=== PATIENT | male | born 1995 | race Caucasian/White ===

== ENCOUNTER 2018-04-28 02:41 | Inpatient (IN) | payer BC ==
[~2018-04-28] VITALS: Ht 185.4 cm; Wt 87.0 kg
[2018-04-28] MEDS ORDERED: LORAZEPAM 2 MG/ML 1 ML VIAL IV STA ×2 (03:14→04:05)
[2018-04-28] MEDS ORDERED: SODIUM CHLORIDE 0.9% 1000ML 1,000 ML IV STA (03:14)
[2018-04-28] MEDS ORDERED: CLONIDINE HCL 0.3 MG/24 HR TRANSDERM SYS TD STA (03:14)
[2018-04-28] MEDS ORDERED: MULTI-VITAMIN INFUSION INJ 10 ML, THIAMINE HCL INJ 100 MG, FoLIC ACID INJ 1 MG in SODIU... IV ONE (03:15)
--- NOTE | 2018-04-28 03:22 | EMERGENCY ROOM VISIT NOTE ---
History Report prepared by Eliza: Jett Ramos Under the Supervision of: Dr. Miky Diaz M.D. First contact with patient: 02:52 Chief Complaint: DETOX REQUEST Nursing Triage Summary: Pt presents to triage stating he quit drinking etoh and taking Xanax and Prazosin. Stated quit everything Wed at 0900. "I wasn't abusing the medication. I was taking them as prescribed with alcohol." Pt reports feeling n/v/d, difficulty breathing, shaking, cold sweats, unable to sleep. Unable to keep food/water down. Sx began yesterday morning. History of Present Illness The patient is a 22 year old male who presents to the Emergency Room requesting assistance with detoxification. The patient states he used to drink three handles of vodka a week. He reports he has done this for the past three weeks. The patient notes he also was taking prescription Xanax in the morning as well as drinking. He states he takes 1mg of Xanax XR in the morning, and he has been taking an additional 0.5mg as well. The patient reports he also takes Prazosin 4mg at night to sleep. He notes he wanted to detox from his alcohol and Xanax, so he flushed the rest of his Xanax down the drain Tuesday morning. The patient states since then, he has been experiencing constant shakiness, diaphoresis, vomiting, diarrhea, and the sensation that his throat is choking him. He reports he does not keep in contact with his parents. The patient denies abdominal pain. Source of History: patient Onset: two days ago Quality: other (shakiness) Timing: constant Modifying Factors (Worsening): other (not taking medication and drinking) Associated Symptoms: + diaphoresis, + vomiting, + diarrhea, No abdominal pain Note: Associated symptoms: sensation that his throat is choking him Review of Systems See HPI for pertinent positives & negatives. A total of 10 systems reviewed and were otherwise negative. Past Medical & Surgical Medical Problems: (1) Alcohol withdrawal (2) Anxiety Family History Cancer Social History Smoking Status: Never Smoker Marital Status: in relationship Housing Status: lives with significant other Current/Historical Medications Scheduled Alprazolam (Xanax Xr), 1 MG PO QAM Gabapentin (Gabapentin), 0 OR DIRECTED Prazosin Hcl (Prazosin), 4 MG PO HS Scheduled PRN Alprazolam (Xanax), 0.5 MG PO TID PRN for Anxiety Allergies Coded Allergies: No Known Allergies (Unverified , 04/28/18) Physical Exam Vital Signs Date Time Temp Pulse Resp B/P (MAP) Pulse Ox O2 Delivery O2 Flow Rate FiO2 04/28/18 04:01 82 04/28/18 03:57 95 Room Air 04/28/18 03:57 96 Room Air 04/28/18 02:45 37.2 112 20 157/89 98 Room Air Physical Exam GENERAL: Awake, alert, well-appearing, in no acute distress HENT: Normocephalic, atraumatic. Oropharynx unremarkable. EYES: Normal conjunctiva. Sclera non-icteric. NECK: Supple. No nuchal rigidity. FROM. No JVD. RESPIRATORY: Clear to auscultation. CARDIAC: Regular rate, normal rhythm. Extremities warm and well perfused. Pulses equal. ABDOMEN: Soft, non-distended. No tenderness to palpation. No rebound or guarding. No masses. RECTAL: Deferred. MUSCULOSKELETAL: Chest examination reveals no tenderness. The back is symmetrical on inspection without obvious abnormality. There is no CVA tenderness to palpation. No joint edema. LOWER EXTREMITIES: Calves are equal size bilaterally and non-tender. No edema. No discoloration. NEURO: Normal sensorium. No sensory or motor deficits noted. Tremulous. SKIN: No rash or jaundice noted. Diaphoretic. Medical Decision & Procedures Laboratory Results 04/28/18 03:10 Red Blood Count 5.17, Mean Corpuscular Volume 93.4, Mean Corpuscular Hemoglobin 34.2, Mean Corpuscular Hemoglobin Concent 36.6, Mean Platelet Volume 9.7, Neutrophils (%) (Auto) 70.3, Lymphocytes (%) (Auto) 14.6, Monocytes (%) (Auto) 14.6, Eosinophils (%) (Auto) 0.5, Basophils (%) (Auto) 0.0, Neutrophils # (Auto ) 2.70, Lymphocytes # (Auto) 0.56, Monocytes # (Auto) 0.56, Eosinophils # (Auto ) 0.02, Basophils # (Auto) 0.00 Test 04/28/18 03:10 04/28/18 05:40 White Blood Count 3.84 K/uL (4.8-10.8) Red Blood Count 5.17 M/uL (4.7-6.1) Hemoglobin 17.7 g/dL (14.0-18.0) Hematocrit 48.3 % (42-52) Mean Corpuscular Volume 93.4 fL (80-100) Mean Corpuscular Hemoglobin 34.2 pg (25-34) Mean Corpuscular Hemoglobin Concent 36.6 g/dl (32-36) Platelet Count 137 K/uL (130-400) Mean Platelet Volume 9.7 fL (7.4-10.4) Neutrophils (%) (Auto) 70.3 % Lymphocytes (%) (Auto) 14.6 % Monocytes (%) (Auto) 14.6 % Eosinophils (%) (Auto) 0.5 % Basophils (%) (Auto) 0.0 % Neutrophils # (Auto) 2.70 K/uL (1.4-6.5) Lymphocytes # (Auto) 0.56 K/uL (1.2-3.4) Monocytes # (Auto) 0.56 K/uL (0.11-0.59) Eosinophils # (Auto) 0.02 K/uL (0-0.5) Basophils # (Auto) 0.00 K/uL (0-0.2) RDW Standard Deviation 40.0 fL (36.4-46.3) RDW Coefficient of Variation 11.9 % (11.5-14.5) Immature Granulocyte % (Auto) 0.0 % Immature Granulocyte # (Auto) 0.00 K/uL (0.00-0.02) Prothrombin Time 10.7 SECONDS (9.0-12.0) Prothromb Time International Ratio 1.0 (0.9-1.1) Activated Partial Thromboplast Time 26.4 SECONDS (21.0-31.0) Partial Thromboplastin Ratio 1.0 Total Creatine Kinase 410 U/L (39-308) Lipase 195 U/L (73-393) Salicylates Level < 1.7 mg/dl (2.8-20) Acetaminophen Level < 2 ug/ml (10-30) Ethyl Alcohol mg/dL < 3.0 mg/dl (0-3) Urine Color YELLOW Urine Appearance CLEAR (CLEAR) Urine pH 7.5 (4.5-7.5) Urine Specific [place] 1.004 (1.000-1.030) Urine Protein NEG (NEG) Urine Glucose (UA) NEG (NEG) Urine Ketones TRACE (NEG) Urine Occult Blood NEG (NEG) Urine Nitrite NEG (NEG) Urine Bilirubin NEG (NEG) Urine Urobilinogen NEG (NEG) Urine Leukocyte Esterase TRACE (NEG) Urine WBC (Auto) 1-5 /hpf (0-5) Urine RBC (Auto) 0-4 /hpf (0-4) Urine Hyaline Casts (Auto) 0 /lpf (0-5) Urine Epithelial Cells (Auto) 0-5 /lpf (0-5) Urine Bacteria (Auto) NEG (NEG) Urine Opiates Screen NEG (NEG) Urine Methadone, Qualitative NEG (NEG) Urine Barbiturates NEG (NEG) Urine Phencyclidine (PCP) Level NEG (NEG) Ur Amphetamine/Methamphetamine NEG (NEG) MDMA (Ecstasy) Screen NEG (NEG) Urine Benzodiazepines Screen POS (NEG) Urine Cocaine Metabolite NEG (NEG) Urine Marijuana (THC) NEG (NEG) Labs reviewed by ED physician. Medications Administered Medications (Trade) Dose Ordered Sig/Geo Route Start Time Stop Time Status Last Admin Dose Admin Clonidine HCl ([id number] 0.3mg/24hr Patch) 1 patch NOW STAT TD 04/28/18 03:14 04/28/18 03:17 DC 04/28/18 03:14 1 PATCH Sodium Chloride 1,000 ml @ 999 mls/hr Q1H1M STAT IV 04/28/18 03:14 04/28/18 04:14 DC 04/28/18 03:14 999 MLS/HR Multivitamins 10 ml/Thiamine HCl 100 mg/Folic Acid 1 mg/Sodium Chloride 1,011.2 ml @ 500 mls/ hr Q2H2M ONCE IV 04/28/18 03:15 04/28/18 05:16 DC 04/28/18 03:15 500 MLS/HR Lorazepam (Ativan Inj) 1 mg NOW STAT IV 04/28/18 03:14 04/28/18 03:17 DC 04/28/18 03:14 1 MG Ondansetron HCl (Zofran Inj) 4 mg NOW STAT IV 04/28/18 03:36 04/28/18 03:37 DC 04/28/18 03:47 4 MG Potassium Chloride (Klor-Con M10) 40 meq NOW STAT PO 04/28/18 03:56 04/28/18 03:57 DC 04/28/18 03:56 40 MEQ Miscellaneous Medication (Gi Cocktail) 24 ml NOW STAT PO 04/28/18 04:05 04/28/18 04:07 DC 04/28/18 04:05 24 ML Famotidine (Pepcid Tab) 20 mg NOW STAT PO 04/28/18 04:05 04/28/18 04:07 DC 04/28/18 04:05 20 MG Lidocaine HCl (Viscous Lidocaine 2% Soln) 20 ml STK-MED ONCE .ROUTE 04/28/18 04:17 04/28/18 04:18 DC 04/28/18 04:40 20 ML Al Hydroxide/Mg Hydroxide (Maalox Susp) 30 ml STK-MED ONCE .ROUTE 04/28/18 04:18 04/28/18 04:19 DC 04/28/18 04:40 30 ML ECG Per My Interpretation Indication: toxicologic Rate (beats per minute): 78 Rhythm: normal sinus Findings: other (No ST elevation or depression.) ED Course 0256: Past medical records reviewed. The patient was evaluated in room A08. A complete history and physical examination was performed. 0314: Ordered Ativan 1mg IV, Sodium Chloride 1000 ml @ 999 mls/hr, Clonidine HCl 1patch TD 0315: Ordered Multivitamins 10ml/Thiamine HCl 100 mg/Folic Acid 1mg/Sodium Chloride 1011.2 ml @ 500 mls/hr IV 0336: Ordered Zofran 4mg IV 0356: Ordered Potassium chloride 40 meq PO 0405: Ordered Ativan 1mg IV, Carafate 1gm PO, Pepcid 20mg, GI cocktail 24ml PO 0409: I discussed the patient's case with Dr. Ricci [facility]. The patient will be evaluated for further management and care. 0417: Ordered Lidocaine HCl 20ml .ROUTE 0418: Ordered Maalox 30ml .ROUTE 0419: I reevaluated the patient. He states he does not wish to be admitted and would like to be discharged. 0430: Ordered Lorazepam 1 homepack PO 0538: After further discussion, the patient has decided he wants to have a hospitalist evaluate him. 0542: I discussed the patient's case with Dr. Gordo Ricci. The patient will be evaluated for further management and care. Medical Decision Differential diagnosis: Etiologies such as toxicologic, infection, hypoglycemia, electrolyte abnormalities, cardiac sources, intracerebral event, neurologic, substance withdraw, as well as others were entertained. This is a 22-year-old male who presents the emergency department diaphoretic tachycardic and hypertensive during a period of high volume and high acuity during single provider coverage. The patient drinks a large amount of alcohol and suddenly stopped along with his benzodiazepine. I am concerned that the patient has put himself into acute withdrawal. He was given a Catapres patch here in the emergency department as well as 1 mg of Ativan 2. The patient was also given a banana bag as well as a normal saline bolus. I strongly recommended to the patient that he be admitted based on his withdrawal symptoms. The patient initially refused however after started feeling sick again agreed to be admitted. I did discuss the case with the hospitalist service who agreed to admit the patient. Patient was in agreement with the treatment plan. Medication Reconcilliation Current Medication List: was personally reviewed by me Blood Pressure Screening Patient's blood pressure: Elevated blood pressure Blood pressure disposition: Elevated BP felt to be situational Consults Time Called: 0535 Consulting Physician[facility] Returned Call: 0560 I discussed the patient's case with Gordo Sánchez. The patient will be evaluated for further management and care. Impression Primary Impression: Alcohol withdrawal Critical Care I have personally spent greater than 30 minutes of critical care time in the direct management of this patient. This includes bedside care, interpretation of diagnostic studies, and testing, discussion with consultants, patient, and family members, and other required patient management activities. This 30 minutes is in excess of all separately billable procedures. Scribe Attestation The scribe's documentation has been prepared under my direction and personally reviewed by me in its entirety. I confirm that the note above accurately reflects all work, treatment, procedures, and medical decision making performed by me. Departure Information Dispostion Being Evaluated By Hospitalist Prescriptions Gabapentin (Gabapentin) 600 Mg Tab 0 OR DIRECTED for 8 Days, #13 CAP take 600 mg q8h x 2 days then 600 mg q12 h x 2 days then 600 mg daily x 2 days then 300 mg daily x 2 days Prov: Carlos Berg M.D. 04/29/18 Referrals Rachid Starks M.D. (PCP) Patient Instructions [facility] Problem Qualifiers Primary Impression: Alcohol withdrawal Complication of substance-induced condition: with unspecified complication Qualified Codes: F10.239 - Alcohol dependence with withdrawal, unspecified
[2018-04-28 03:24] LABS: EOS % 0.5 %; EOS ABS # 0.02 K/uL (0-0.5); HEMATOCRIT 48.3 % (42-52); HEMOGLOBIN 17.7 g/dL (14.0-18.0); LYMPH % 14.6 %; LYMPH ABS # 0.56 K/uL (1.2-3.4); MEAN CELL VOLUME 93.4 fL (80-100); MEAN CORPUSCULAR HEMOGLOBIN 34.2 pg (25-34); MEAN CORPUSCULAR HGB CONC 36.6 g/dl (32-36); MEAN PLATELET VOLUME 9.7 fL (7.4-10.4); MONO % 14.6 %; MONO ABS # 0.56 K/uL (0.11-0.59); NEUT % 70.3 %; PLATELET COUNT 137 K/uL (130-400); RED CELL DISTRIBUTION WIDTH CV 11.9 % (11.5-14.5); WHITE BLOOD COUNT 3.84 K/uL (4.8-10.8)
[2018-04-28] MEDS ORDERED: ONDANSETRON INJ 2 MG/ML 2 ML VIAL IV STA (03:36)
[2018-04-28 03:37] LABS: PTT PATIENT 26.4 SECONDS (21.0-31.0)
[2018-04-28 03:49] LABS: ALBUMIN 4.9 gm/dl (3.4-5.0); CALCIUM 9.2 mg/dl (8.5-10.1); CREATININE 1.01 mg/dl (0.60-1.40); POTASSIUM 3.1 mmol/L (3.5-5.1); TOTAL PROTEIN 8.6 gm/dl (6.4-8.2)
[2018-04-28] MEDS ORDERED: POTASSIUM CHLORIDE 10 MEQ TABCR PO STA (03:56)
[2018-04-28] MEDS ORDERED: FAMOTIDINE 20 MG TAB PO STA (04:05)
[2018-04-28] MEDS ORDERED: SUCRALFATE 1 GM TAB PO STA (04:05)
[2018-04-28] MEDS ORDERED: GI COCKTAIL PO STA (04:05)
[2018-04-28] MEDS ORDERED: LIDOCAINE HCL 2% VISC SOLN 20 ML UDC ONE (04:17)
[2018-04-28] MEDS ORDERED: ALUMINUM/MAGNESIUM SUSP 30 ML UDC ONE (04:18)
[2018-04-28] MEDS ORDERED: ATIVAN 1MG HOMEPACK PO ONE (04:30)
[2018-04-28] MEDS ORDERED: ALPR1TAB PO (04:40)
[2018-04-28] MEDS ORDERED: ALPR-411 PO (04:41)
[2018-04-28] MEDS ORDERED: PRAZ2CAP3 PO (04:43)
[2018-04-28] MEDS ORDERED: CLONIDINE HCL 0.1 MG TAB PO PRN (06:15)
[2018-04-28] MEDS ORDERED: ONDANSETRON INJ 2 MG/ML 2 ML VIAL IV PRN (06:15)
[2018-04-28] MEDS ORDERED: NITROGLYCERIN 0.4 MG SL PER TAB CHARGE SL PRN (06:15)
[2018-04-28] MEDS ORDERED: LOPERAMIDE HCL 2 MG CAP PO PRN (06:15)
[2018-04-28] MEDS ORDERED: ACETAMINOPHEN 325 MG TAB PO PRN (06:15)
[2018-04-28] MEDS ORDERED: ALUMINUM/MAGNESIUM/SIMETH (MAALOX MAX) 30 ML UDC PO PRN (06:15)
[2018-04-28] MEDS ORDERED: GABAPENTIN 600 MG TAB PO SCH (06:15)
[2018-04-28] MEDS ORDERED: POLYETHYLENE (MIRALAX) 17 GM PACK PO PRN (06:15)
[2018-04-28] MEDS: CHECK CLONIDINE PATCH PLACEMENT SCH ×3 (07:53→23:16)
[2018-04-28] MEDS: LORAZEPAM 1 MG TAB PO PRN ×2 (08:24→16:17)
[2018-04-28] MEDS: ALPRAZOLAM 0.5 MG TAB PO PRN ×2 (08:24→16:17)
[2018-04-28 08:29] VITALS: BP 136/93; PULSE 108; TEMP 36.8; O2SAT 100; Ht 185.4 cm; Wt 87.0 kg
[2018-04-28] MEDS ORDERED: GABAPENTIN 1200MG LOADING DOSE PO ONE (08:30)
--- NOTE | 2018-04-28 08:35 | HISTORY & PHYSICAL EXAMINATION ---
DATE OF ADMISSION: 04/28/2018 CHIEF COMPLAINT: Alcoholism. HISTORY OF PRESENT ILLNESS: This is a 22-year-old male with past medical history significant for PTSD, anxiety, alcoholism, presents with a request for alcohol detox. Patient says since last Tuesday he stopped drinking and he was doing it by himself, but he was having problems with shakiness palpitations, nauseous, sweating and diarrhea, so he came to the ER. In the ER, he was given banana bag and IV Ativan. He was doing a little better and wanted to go home, but agreed to stay. Denies any headaches. No blurred vision. No earache, no runny nose, no sore throat. Has some occasional cough, was having sore throat since he stopped drinking and some difficulty swallowing since he stopped drinking. No shortness of breath, no chest pain. Mild abdominal discomfort. Normal bladder movements. Currently, resting comfortable and hemodynamically stable. ALLERGIES: No known drug allergies. PAST MEDICAL HISTORY: As mentioned above. PAST SURGICAL HISTORY: Surgery for testicular torsion, wisdom tooth surgery. MEDICATIONS: The patient is on Xanax 1 mg p.o. a.m., Xanax 0.5 mg p.o. t.i.d. p.r.n., prazosin 4 mg p.o. at bedtime. FAMILY HISTORY: Patient denies any significant family history. SOCIAL HISTORY: Drinking alcohol since age of 15. Drinks 2 bottles of vodka in a week. Denies tobacco abuse, denies drug abuse. REVIEW OF SYMPTOMS: As per HPI. Rest of review of symptoms is negative. PHYSICAL EXAMINATION: GENERAL: Patient is of moderate build, not in distress. VITAL SIGNS: Temperature 37.2, pulse when he came in was 112, currently 82, respiratory rate 20, blood pressure 157/89, oxygen 96% room air. HEENT: No pallor, no icterus. Pupils equal, round, and reactive to light. NECK: No JVD, no neck masses, no carotid bruits. CARDIOVASCULAR: S1, S2 heard, regular rate and rhythm. No murmurs. RESPIRATORY SYSTEM: Normal AP diameter. No accessory muscle use. No wheezing, no crackles. ABDOMEN: Soft, bowel sounds present. Nontender. No distention. CENTRAL NERVOUS SYSTEM: Cranial nerves II-XII grossly intact. Nonfocal. EXTREMITIES: No edema, no erythema. LABS: WBC 3.8, hemoglobin 17.7, hematocrit 48.3, platelets 137. Sodium 135, potassium 3.1, chloride 96, bicarb 25, BUN 10, creatinine 1, serum glucose 99, calcium 9.2, total bilirubin 1.9, direct bilirubin 0.5, AST 106, ALT 109, alkaline phosphatase 81, total creatinine kinase is 14, albumin 4.9, lipase 195. PT 10.7, INR 1, APTT 26.4. Salicylate level less than 17, acetaminophen level less than 2, alcohol level less than 3. ASSESSMENT AND PLAN: This is a 22-year-old male who presents with alcoholism and requests for alcohol detoxification. 1. Alcoholism, alcohol withdrawal. Stopped drinking since Tuesday because he wanted to get rid of the habit and request for detoxification. Will place him on banana bag, gabapentin alcohol withdrawal protocol, IV Ativan p.r.n. and monitor in tele floor. Place him on clonidine p.r.n. and Imodium p.r.n. Psych consult. 2. History of posttraumatic stress disorder and anxiety. Continue his home medications. 3. Hypokalemia, we will replace. 4. Elevated LFTs, most likely from alcoholism. We will repeat the labs and also check a liver ultrasound. 5. Deep vein thrombosis prophylaxis, sequential compression device. DISPOSITION: Admit to tele floor. Expect to discharge him home and follow up with family doctor. Level 1 full code. MTDD
[2018-04-28] MEDS ORDERED: LORAZEPAM 2 MG/ML 1 ML VIAL IV PRN (10:00)
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
[2018-04-28 12:00] VITALS: BP 133/95; PULSE 61; TEMP 37; O2SAT 98
[2018-04-28] MEDS ORDERED: PNEUMOCOCCAL POLYSACCHARIDES 25 MCG/0.5 ML VIAL/SYR IM. ONE (12:45)
[2018-04-28] MEDS ORDERED: PNEUMOCOCCAL ADMINISTRATION CHARGE ONE (12:45)
[2018-04-28] MEDS: MULTI-VITAMIN INFUSION INJ 10 ML, THIAMINE HCL INJ 100 MG, FoLIC ACID INJ 1 MG in SODIU... IV SCH (12:54)
[2018-04-28 13:22] LABS: POTASSIUM 3.8 mmol/L (3.5-5.1)
--- NOTE | 2018-04-28 15:25 | DIAGNOSTIC IMAGING REPORT ---
BILIARY ULTRASOUND CLINICAL HISTORY: ELEVATED LFT COMPARISON STUDY: No previous studies for comparison. FINDINGS: The liver is of increased echogenicity, nonspecific finding most often seen in hepatic steatosis. There is suspected focal fatty sparing adjacent to the gallbladder. There are multiple gallstones present. There is a small fundal gallbladder polyp versus focal adenomyomatosis. The gallbladder wall measures 4 mm. No pancreatic masses are visualized. There is no ductal dilatation. The common bile duct measures 5 mm. There is no right-sided hydronephrosis. IMPRESSION: 1. Cholelithiasis. 2. Small fundal gallbladder polyp versus focal adenomyomatosis 3. No ductal dilatation 4. Increased hepatic echogenicity, most likely secondary to hepatic steatosis Electronically signed by: J Luis Mcgovern M.D. 04/28/2018 3:24 PM Dictated Date/Time: 04/28/2018 3:22 PM
[2018-04-28 16:06] VITALS: BP 150/102; PULSE 81; TEMP 36.7; O2SAT 98
[2018-04-28] MEDS: GABAPENTIN 600MG Q6H DOSE PO SCH ×2 (16:17→21:20)
--- NOTE | 2018-04-28 17:55 | Progress Note ---
Progress Note Date of Service Apr 28, 2018. Progress Note Subjective: Patient seen and examined at bedside and denies tremors. Denies chest pain or shortness of breath or abdominal pain Physical exam GENERAL: not in distress. HEENT: No pallor, no icterus. Pupils equal, round, and reactive to light. NECK: No JVD, no neck masses, no carotid bruits. CARDIOVASCULAR: S1, S2 heard, regular rate and rhythm. No murmurs. RESPIRATORY SYSTEM: Normal AP diameter. No accessory muscle use. No wheezing , no crackles. ABDOMEN: Soft, bowel sounds present. Nontender. No distention. CENTRAL NERVOUS SYSTEM: Cranial nerves II-XII grossly intact. Nonfocal. EXTREMITIES: No edema, no erythema. ASSESSMENT AND PLAN: This is a 22-year-old male who presents with alcoholism and here for alcohol detoxification -currently no symptoms of withdrawal symptoms -continue gabapentin alcohol withdrawal protocol with prn Ativan or clonidine if needed -Continue banana bag History of posttraumatic stress disorder and anxiety -reports Xanax use at home ofr anxiety -uses prazosin for PTSD -psychiatry consult asked to evaluate any changes to current medications or to help patient with transitioning for outpatient behavioral health from hospital stay Hypokalemia resolved after potassium supplementations Transaminitis and on RUQ ultrasound found to have 1. Cholelithiasis. 2. Small fundal gallbladder polyp versus focal adenomyomatosis 3. No ductal dilatation 4. Increased hepatic echogenicity, most likely secondary to hepatic steatosis -no abdominal symptoms -patient encouraged to avoid alcohol use in the future to prevent worsening hepatic steatosis Deep vein thrombosis ppx: sequential compression device.
[2018-04-28 19:23] VITALS: BP 149/85; PULSE 77; TEMP 36.8; O2SAT 100
[2018-04-28] MEDS ORDERED: PRAZOSIN HCL 1 MG CAP PO SCH (21:00)
[2018-04-28 22:59] VITALS: BP 126/66; PULSE 71; TEMP 36.9; O2SAT 99
[2018-04-29 02:56] VITALS: BP 126/76; PULSE 68; TEMP 36.7; O2SAT 99
[2018-04-29] MEDS: GABAPENTIN 600MG Q8H DOSE PO SCH ×2 (05:19→14:15)
[2018-04-29 06:44] LABS: ALBUMIN 3.8 gm/dl (3.4-5.0); CALCIUM 8.4 mg/dl (8.5-10.1); CREATININE 0.83 mg/dl (0.60-1.40); POTASSIUM 3.5 mmol/L (3.5-5.1); TOTAL PROTEIN 6.7 gm/dl (6.4-8.2)
[2018-04-29 07:25] VITALS: BP 128/76; PULSE 78; TEMP 36.8; O2SAT 99
[2018-04-29] MEDS: LORAZEPAM 1 MG TAB PO PRN ×2 (08:06→14:14)
[2018-04-29] MEDS: CHECK CLONIDINE PATCH PLACEMENT SCH (08:07)
[2018-04-29] MEDS: MULTI-VITAMIN INFUSION INJ 10 ML, THIAMINE HCL INJ 100 MG, FoLIC ACID INJ 1 MG in SODIU... IV SCH (08:46)
--- NOTE | 2018-04-29 09:21 | Psych Management Progress Note ---
Psychiatry Miscellaneous Date of Service: Apr 29, 2018. confirmed that patient did indeed inform [facility] that he will not be returning to care. No further rx's to be provided by [facility]. Patient is receiving prn Ativan for withdrawal on top of prn Xanax which he received yesterday. I'd advise d/c of prn Xanax and cover with other withdrawal meds, otherwise taper to 0.25 mg BID prn then d/c. Will defer to primary team as far as preference for breakthrough withdrawal. No further recs at this time as rec would be for inpatient rehab and patient is managing his own f/u.
[2018-04-29 11:40] VITALS: BP 131/89; PULSE 75; TEMP 36.7; O2SAT 100
[2018-04-29 15:15] VITALS: BP 160/87; PULSE 91; TEMP 37.2; O2SAT 97
--- NOTE | 2018-04-29 16:55 | Progress Note ---
Progress Note Date of Service Apr 29, 2018. Progress Note Subjective: Patient has been seen and examined during the day several times. While he has not been having evidence for tongue fasciculations or hand tremors., patient's heart rate has been erratic today. On the cardiac monitoring this AM his heart rate was monitored to be 135 beats per minute for which he attributed to the being startled by medical staff or stressed out. During the day at rest patient' s heart rate has been seen on the monitor to be anywhere between the 80s to 120s. When ambulating, patient's heart rate was in the 130s. Medical doctor has expressed to him concern that he should remain in the hospital for at least 1 more day for further cardiac monitoring and gabapentin protocol. Patient insists that he would like to leave the hospital by 6 PM. Have approached patient and explained with his nurse present that in the context of tachycardia and context of previous alcohol use that patient may be at risk of alcohol withdrawal of delirium tremens and that he should stay further for monitoring and gabapentin withdrawal protocol. Have informed patient that he can sign acknowledge these risks and sign discharge against medical advice form. Patient reports he has been worked up in the past and request that medical staff obtain his medical records from [place]. Physical exam as performed earlier GENERAL: not in distress. HEENT: No pallor, no icterus. Pupils equal, round, and reactive to light. NECK: No JVD, no neck masses CARDIOVASCULAR: at rest the heart rate is regular and no murmurs appreciated RESPIRATORY SYSTEM: clear to auscultation. No accessory muscle use. No wheezing, no crackles. ABDOMEN: Soft, bowel sounds present. Nontender. No distention. CENTRAL NERVOUS SYSTEM: no tremors of hands or tongue EXTREMITIES: No edema, no erythema. ASSESSMENT AND PLAN: This is a 22-year-old male who presents with alcoholism and here for alcohol detoxification -concern that erratic heart rates may be due to evidence of alcohol withdrawal -will obtain medical records from [place] however am concerned that this would not be able to be done in time to meet patient's deadline of 6 PM discharge -concern that patient may need further cardiac monitoring and further therapy with gabapentin alcohol withdrawal protocol History of posttraumatic stress disorder and anxiety -continue prazosin for PTSD -psychiatry consult advised that patient should be off Xanax Hypokalemia resolved after potassium supplementations Transaminitis and on RUQ ultrasound found to have 1. Cholelithiasis. 2. Small fundal gallbladder polyp versus focal adenomyomatosis 3. No ductal dilatation 4. Increased hepatic echogenicity, most likely secondary to hepatic steatosis -no abdominal symptoms -patient encouraged to avoid alcohol use in the future to prevent worsening hepatic steatosis Deep vein thrombosis ppx: sequential compression device.
[2018-04-29 18:00] VITALS: BP 131/89; PULSE 91; TEMP 37.2; O2SAT 97
[2018-04-29] MEDS ORDERED: NRN600 OR ×2 (18:07→18:10)
--- NOTE | 2018-04-29 18:16 | Discharge Instructions ---
Discharge Instructions Date of Service Apr 29, 2018. Admission Reason for Admission: Alcohol Withdrawal Discharge Discharge Diagnosis / Problem: alcohol withdrawal with complication, left against medical advice Discharge Goals Goal(s): Prevent Disease Progression Activity Recommendations Activity Limitations: as noted below . Instructions / Follow-Up Instructions / Follow-Up Subjective: Patient has been seen and examined during the day several times. While he has not been having evidence for tongue fasciculations or hand tremors., patient's heart rate has been erratic today. On the cardiac monitoring this AM his heart rate was monitored to be 135 beats per minute for which he attributed to the being startled by medical staff or stressed out. During the day at rest patient' s heart rate has been seen on the monitor to be anywhere between the 80s to 120s. When ambulating, patient's heart rate was in the 130s. Medical doctor has expressed to him concern that he should remain in the hospital for at least 1 more day for further cardiac monitoring and gabapentin protocol. Patient insists that he would like to leave the hospital by 6 PM. Have approached patient and explained with his nurse present that in the context of tachycardia and context of previous alcohol use that patient may be at risk of alcohol withdrawal of delirium tremens and that he should stay further for monitoring and gabapentin withdrawal protocol. Have informed patient that he can sign acknowledge these risks and sign discharge against medical advice form. Patient reports he has been worked up in the past and request that medical staff obtain his medical records from [place]. Physical exam as performed earlier GENERAL: not in distress. HEENT: No pallor, no icterus. Pupils equal, round, and reactive to light. NECK: No JVD, no neck masses CARDIOVASCULAR: at rest the heart rate is regular and no murmurs appreciated RESPIRATORY SYSTEM: clear to auscultation. No accessory muscle use. No wheezing, no crackles. ABDOMEN: Soft, bowel sounds present. Nontender. No distention. CENTRAL NERVOUS SYSTEM: no tremors of hands or tongue EXTREMITIES: No edema, no erythema. ASSESSMENT AND PLAN: This is a 22-year-old male who presents with alcoholism and here for alcohol detoxification -concern that erratic heart rates may be due to evidence of alcohol withdrawal -will obtain medical records from [place] however am concerned that this would not be able to be done in time to meet patient's deadline of 6 PM discharge -concern that patient may need further cardiac monitoring and further therapy with gabapentin alcohol withdrawal protocol History of posttraumatic stress disorder and anxiety -continue prazosin for PTSD -psychiatry consult advised that patient should be off Xanax Hypokalemia resolved after potassium supplementations Transaminitis and on RUQ ultrasound found to have 1. Cholelithiasis. 2. Small fundal gallbladder polyp versus focal adenomyomatosis 3. No ductal dilatation 4. Increased hepatic echogenicity, most likely secondary to hepatic steatosis -no abdominal symptoms -patient encouraged to avoid alcohol use in the future to prevent worsening hepatic steatosis Deep vein thrombosis ppx: sequential compression device. Addendum: Carlos Berg M.D. on 04/29/18 @ 18:02 Addendum Section While medical staff awaiting records from patient's medical providers from [place], patient took off his cardiac monitoring to leave the hospital He declined to sign the Leave Against medical advice form in which medical doctor verbalized that possible medical consequences involved at risk of alcohol withdrawal, at risk of delirium tremens, tremors hallucinations, fever, seizure, at risk of uncontrolled tachycardia) Patient did accept the paper prescription for alcohol withdrawal which listed gabapentin 600 mg q8 hours x 2 days then 600 mg q12 hours x 2 days then 600 mg daily x 2 days then 300 mg x 2 days in order to minimize his risk of possible medical consequences as above. This was witnessed by patient's nurse. Patient Left against medical advice Current Hospital Diet Patient's current hospital diet: Regular Diet Discharge Diet Recommended Diet: Regular Diet Pending Studies Studies pending at discharge: yes List of pending studies: Left Against medical advice Medical Emergencies . Who to Call and When: Medical Emergencies: If at any time you feel your situation is an emergency, please call 911 immediately. . Non-Emergent Contact Non-Emergency issues call your: Primary Care Provider . . "Provider Documentation" section prepared by Calros Berg. .
--- NOTE | 2018-04-29 18:19 | Discharge Summary ---
Discharge Summary Date of Service Apr 29, 2018. Discharge Summary Admission Date: Apr 28, 2018 at 06:07 Discharge Date: Apr 29, 2018 (LEFT AGAINST MEDICAL ADVICE) Principal Diagnosis: alcohol withdrawal with complication, Left against medical advice Admission Information HPI (per Admitting provider): CHIEF COMPLAINT: Alcoholism. HISTORY OF PRESENT ILLNESS: This is a 22-year-old male with past medical history significant for PTSD, anxiety, alcoholism, presents with a request for alcohol detox. Patient says since last Tuesday he stopped drinking and he was doing it by himself, but he was having problems with shakiness palpitations, nauseous, sweating and diarrhea, so he came to the ER. In the ER, he was given banana bag and IV Ativan. He was doing a little better and wanted to go home, but agreed to stay. Denies any headaches. No blurred vision. No earache, no runny nose, no sore throat. Has some occasional cough, was having sore throat since he stopped drinking and some difficulty swallowing since he stopped drinking. No shortness of breath, no chest pain. Mild abdominal discomfort. Normal bladder movements. Currently, resting comfortable and hemodynamically stable. ALLERGIES: No known drug allergies. PAST MEDICAL HISTORY: As mentioned above. PAST SURGICAL HISTORY: Surgery for testicular torsion, wisdom tooth surgery. MEDICATIONS: The patient is on Xanax 1 mg p.o. a.m., Xanax 0.5 mg p.o. t.i.d. p.r.n., prazosin 4 mg p.o. at bedtime. FAMILY HISTORY: Patient denies any significant family history. SOCIAL HISTORY: Drinking alcohol since age of 15. Drinks 2 bottles of vodka in a week. Denies tobacco abuse, denies drug abuse. REVIEW OF SYMPTOMS: As per HPI. Rest of review of symptoms is negative. Physical Exam (per Admitting): PHYSICAL EXAMINATION: GENERAL: Patient is of moderate build, not in distress. VITAL SIGNS: Temperature 37.2, pulse when he came in was 112, currently 82, respiratory rate 20, blood pressure 157/89, oxygen 96% room air. HEENT: No pallor, no icterus. Pupils equal, round, and reactive to light. NECK: No JVD, no neck masses, no carotid bruits. CARDIOVASCULAR: S1, S2 heard, regular rate and rhythm. No murmurs. RESPIRATORY SYSTEM: Normal AP diameter. No accessory muscle use. No wheezing, no crackles. ABDOMEN: Soft, bowel sounds present. Nontender. No distention. CENTRAL NERVOUS SYSTEM: Cranial nerves II-XII grossly intact. Nonfocal. EXTREMITIES: No edema, no erythema. Hospital Course Subjective: Patient has been seen and examined during the day several times. While he has not been having evidence for tongue fasciculations or hand tremors., patient's heart rate has been erratic today. On the cardiac monitoring this AM his heart rate was monitored to be 135 beats per minute for which he attributed to the being startled by medical staff or stressed out. During the day at rest patient' s heart rate has been seen on the monitor to be anywhere between the 80s to 120s. When ambulating, patient's heart rate was in the 130s. Medical doctor has expressed to him concern that he should remain in the hospital for at least 1 more day for further cardiac monitoring and gabapentin protocol. Patient insists that he would like to leave the hospital by 6 PM. Have approached patient and explained with his nurse present that in the context of tachycardia and context of previous alcohol use that patient may be at risk of alcohol withdrawal of delirium tremens and that he should stay further for monitoring and gabapentin withdrawal protocol. Have informed patient that he can sign acknowledge these risks and sign discharge against medical advice form. Patient reports he has been worked up in the past and request that medical staff obtain his medical records from [place]. Physical exam as performed earlier GENERAL: not in distress. HEENT: No pallor, no icterus. Pupils equal, round, and reactive to light. NECK: No JVD, no neck masses CARDIOVASCULAR: at rest the heart rate is regular and no murmurs appreciated RESPIRATORY SYSTEM: clear to auscultation. No accessory muscle use. No wheezing, no crackles. ABDOMEN: Soft, bowel sounds present. Nontender. No distention. CENTRAL NERVOUS SYSTEM: no tremors of hands or tongue EXTREMITIES: No edema, no erythema. ASSESSMENT AND PLAN: This is a 22-year-old male who presents with alcoholism and here for alcohol detoxification -concern that erratic heart rates may be due to evidence of alcohol withdrawal -will obtain medical records from [place] however am concerned that this would not be able to be done in time to meet patient's deadline of 6 PM discharge -concern that patient may need further cardiac monitoring and further therapy with gabapentin alcohol withdrawal protocol History of posttraumatic stress disorder and anxiety -continue prazosin for PTSD -psychiatry consult advised that patient should be off Xanax Hypokalemia resolved after potassium supplementations Transaminitis and on RUQ ultrasound found to have 1. Cholelithiasis. 2. Small fundal gallbladder polyp versus focal adenomyomatosis 3. No ductal dilatation 4. Increased hepatic echogenicity, most likely secondary to hepatic steatosis -no abdominal symptoms -patient encouraged to avoid alcohol use in the future to prevent worsening hepatic steatosis Deep vein thrombosis ppx: sequential compression device. Addendum: Carlos Berg M.D. on 04/29/18 @ 18:02 Addendum Section While medical staff awaiting records from patient's medical providers from [place], patient took off his cardiac monitoring to leave the hospital He declined to sign the Leave Against medical advice form in which medical doctor verbalized that possible medical consequences involved at risk of alcohol withdrawal, at risk of delirium tremens, tremors hallucinations, fever, seizure, at risk of uncontrolled tachycardia) Patient did accept the paper prescription for alcohol withdrawal which listed gabapentin 600 mg q8 hours x 2 days then 600 mg q12 hours x 2 days then 600 mg daily x 2 days then 300 mg x 2 days in order to minimize his risk of possible medical consequences as above. This was witnessed by patient's nurse. Patient Left against medical advice Total time spent on discharge = This includes examination of the patient, discharge planning, medication reconciliation, and communication with other providers. Discharge Instructions see above
[2018-04-30] MEDS ORDERED: GABAPENTIN 600MG Q12H DOSE PO SCH (10:00)
[2018-05-01] MEDS ORDERED: GABAPENTIN 600MG X1 DOSE PO SCH (22:00)
== END 2018-04-29 18:02 | disposition left against medical advice (07) | DRG 894 ==
LOC: C.EDB 02:42 → C.2T 06:07 → ENRESERV 06:28
PROVIDERS: ADMIT Hospitalist; ATTEND Hospitalist
DX: F10.239 Alcohol dependence with withdrawal, unspecified (principal); E87.6 Hypokalemia; R74.0 Nonspecific elevation of levels of transaminase and lactic acid dehydrogenase [LDH]; F43.10 Post-traumatic stress disorder, unspecified; F41.9 Anxiety disorder, unspecified; K80.20 Calculus of gallbladder without cholecystitis without obstruction; Z53.21 Procedure and treatment not carried out due to patient leaving prior to being seen by health care provider

== ENCOUNTER 2019-07-06 16:51 | Inpatient (IN) ==
[2019-07-06] MEDS ORDERED: MULTI-VITAMIN INFUSION 10 ML, THIAMINE HCL 100 MG, FOLIC ACID 1 MG in SODIUM CHLORIDE 0... IV ONE (17:34)
[2019-07-06] MEDS ORDERED: LORazepam 1 MG/2 ML VIAL IV STA ×2 (17:36→20:09)
[2019-07-06] MEDS ORDERED: THIAMINE HCL 100 MG in SYRINGE 9 ML IV STA (17:38)
[2019-07-06] MEDS ORDERED: SODIUM CHLORIDE 0.9% 1000ML 1,000 ML IV SCH (17:45)
--- NOTE | 2019-07-06 18:00 | XRay Report ---
XR chest 1V portable HISTORY: 23 years-old Male Chest Pain acute atypical chest pain COMPARISON: Chest radiograph 05/20/2019 TECHNIQUE: Portable AP view of the chest FINDINGS: Cardiomediastinal and hilar silhouettes are within normal limits. No pneumothorax, pleural effusion, focal airspace consolidation or overt pulmonary edema. Bones of the chest appear grossly intact. Dege nerative changes of the right AC joint redemonstrated. Cholecystectomy. IMPRESSION: No acute process. The above report was generated using voice recognition software. It may contain grammatical, syntax o r spelling errors. Electronically signed by: Dov Schmitz M.D. 07/06/2019 5:58 PM
[2019-07-06 18:16] LABS: Hematocrit (blood only) 45.3 % (42-52); Hemoglobin 16.6 g/dL (14.0-18.0); Mean Corpuscular Hemoglobin 34.5 pg (25-34); Mean Corpuscular Hgb Conc 36.6 g/dL (32-36); Mean Corpuscular Volume 94.2 fL (80-100); RDW Coefficient of Variation 13.3 % (11.5-14.5); RDW Standard Deviation 45.2 fL (36.4-46.3); Red Blood Count 4.81 M/uL (4.7-6.1); White Blood Count 6.88 K/uL (4.8-10.8)
[2019-07-06 18:22] LABS: Base Excess VBG 1.3 mEq/L; Oxygen Saturation VBG 60.2 %; pH VBG 7.49 (7.36-7.41)
[2019-07-06 18:26] LABS: INR 1.1 (0.9-1.1); Partial Thromboplastin Ratio 0.9; Partial Thromboplastin Time 23.1 Seconds (21.0-31.0); Prothrombin Time 10.8 Seconds (9.0-12.0)
[2019-07-06 18:39] LABS: Albumin Level 4.8 gm/dl (3.4-5.0); Basophils # (auto) 0.01 K/uL (0-0.2); Basophils % (auto) 0.1 %; Blood Urea Nitrogen 15 mg/dl (7-18); Calcium 9.5 mg/dl (8.5-10.1); Carbon Dioxide 22 mmol/L (21-32); Chloride 101 mmol/L (98-107); Glucose 111 mg/dl (70-99); Immature Granulocytes # (auto) 0.02 K/uL (0.00-0.02); Immature Granulocytes % (auto) 0.3 %; Lipase 226 U/L (73-393); Lymphocytes # (auto) 0.18 K/uL (1.2-3.4); Lymphocytes % (auto) 2.6 %; Magnesium 2.3 mg/dl (1.8-2.4); Mean Platelet Volume 9.8 fL (7.4-10.4); Monocytes # (auto) 0.42 K/uL (0.11-0.59); Monocytes % (auto) 6.1 %; Neutrophils # (auto) 6.25 K/uL (1.4-6.5); Neutrophils % (auto) 90.9 %; Platelet Count 79 K/uL (130-400); Platelet Estimate Decreased (Normal); Potassium 3.1 mmol/L (3.5-5.1); Sodium 136 mmol/L (136-145)
[2019-07-06 18:40] LABS: Alanine Aminotransferase 39 U/L (12-78); Aspartate Aminotransferase 60 U/L (15-37); BUN Creatinine Ratio 14.8 (10-20); Est GFR (African American) 118.7; Est GFR (Non-African American) 102.4
[2019-07-06 18:54] LABS: Albumin Globulin Ratio 1.3 (0.9-2); Alkaline Phosphatase 108 U/L (45-117); Bilirubin Direct 0.3 mg/dl (0-0.2); Bilirubin,Total 1.4 mg/dl (0.2-1); Globulin 3.8 gm/dl (2.5-4.0); Phosphorus 1.2 mg/dl (2.5-4.9); Total Protein 8.6 gm/dl (6.4-8.2); Troponin I < 0.015 ng/ml (0-0.045)
--- NOTE | 2019-07-06 18:55 | Emergency Department Note ---
Entered by Armin Fields acting as a scribe for History of Present Illness General Chief complaint: Seizure Stated complaint: SEIZURE Time Seen by Provider: 07/06/19 17:03 Source: patient Limitations: no limitations History of Present Illness Onset (ago): day(s) (yesterday) Location: head Pain Consistency: + intermittent Maximum Pain Intensity: 5 Quality: + constant (tongue pain, nausea) Associated symptoms: + denies other symptoms (congestion), + nausea/vomiting and + syncope; no cough and no fever/chills (fevers) The patient is a 23 year old male who presents to the Emergency Room with complaints of intermittent seizures starting yesterday. The patient states he was sitting on his couch yesterday and woke up on the ground. He states he thought he had a seizure. He notes he was sitting on his couch at 1000 this morning and woke up on the ground. He states he does not remember what happened or how he got on the floor. The patient states he went to [facility] this afternoon and woke up in the ambulance. He states he thinks he had a seizure. He states he is unsure why he is seizing. The patient denies having episodes like this before. He states he is nauseous right now. He notes he has been anxious for the past few days. He states he has been vomiting for 3 days. The patient notes he has only been able to keep down water. He states he is unsure why he is sick. He notes he has a surgery schedule with Dr. Soto for his tongue at the end of the month. He states his tongue is still swollen and has not subsided for weeks. The patient denies recent fevers, cough, congestion, marijuana use, and starting to drink again. Home Medications Home Medications Medication Instructions Recorded Confirmed Type No Known Home Medications 05/30/19 07/06/19 History Allergies Allergy/AdvReac Type Severity Reaction Status Date / Time No Known Allergies Allergy Verified 07/06/19 18:44 Past Med/Surg History Medical History Alcohol abuse (Chronic) Post traumatic stress disorder (Chronic) Hematoma (Inactive) TONGUE Thrombocytopenia (Inactive) PT UNAWARE Surgical History S/P cholecystectomy (Chronic) Hx of unilateral orchiectomy (Chronic) Social History Preferred Language: Bermudian Communication Ability: Effective Visual Impairment: No Limitations Cupola Worker Required: No Beliefs That Will Affect Care: None marital status: Single Current Living Situation: Alone current occupational status: 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 and A total of 10 systems reviewed and were otherwise negative Physical Exam Vital Signs Vital Signs - 24 hr 07/06/19 16:57 07/06/19 17:00 07/06/19 17:01 Temperature 36.8 C Temperature Source Oral Sepsis Recent Fever Within 48 Hours No Sepsis Action Taken by Nursing No Action Required Pulse Rate 110 H 115 H 117 H Pulse Rate from SpO2 Sensor 117 H 115 H 118 H Pulse Rhythm Regular Pulse Strength Normal Respiratory Rate 13 11 L 17 Respiratory Effort / Characteristics Non-Labored Spontaneous Respiratory Depth Normal Respiratory Pattern Regular Blood Pressure 145/93 H 133/94 Blood Pressure Mean 110 107 Pulse Oximetry 97 97 97 Oxygen Delivery Method Room Air 07/06/19 17:30 07/06/19 17:31 07/06/19 18:00 Temperature Temperature Source Sepsis Recent Fever Within 48 Hours Sepsis Action Taken by Nursing Pulse Rate 112 H 106 H 99 H Pulse Rate from SpO2 Sensor 105 H 111 H 92 H Pulse Rhythm Pulse Strength Respiratory Rate 17 20 15 Respiratory Effort / Characteristics Respiratory Depth Respiratory Pattern Blood Pressure 140/114 H 127/91 Blood Pressure Mean 122 103 Pulse Oximetry 100 96 100 Oxygen Delivery Method 07/06/19 18:01 07/06/19 18:07 07/06/19 18:30 Temperature Temperature Source Sepsis Recent Fever Within 48 Hours Sepsis Action Taken by Nursing Pulse Rate 109 H 96 H Pulse Rate from SpO2 Sensor 101 H 90 Pulse Rhythm Pulse Strength Respiratory Rate 17 15 Respiratory Effort / Characteristics Respiratory Depth Respiratory Pattern Blood Pressure 142/117 H Blood Pressure Mean 125 Pulse Oximetry 98 100 Oxygen Delivery Method Room Air 07/06/19 18:31 07/06/19 18:57 07/06/19 19:00 Temperature Temperature Source Sepsis Recent Fever Within 48 Hours Sepsis Action Taken by Nursing Pulse Rate 100 H 102 H 102 H Pulse Rate from SpO2 Sensor 99 H 104 H 102 H Pulse Rhythm Pulse Strength Respiratory Rate 17 14 16 Respiratory Effort / Characteristics Respiratory Depth Respiratory Pattern Blood Pressure 138/104 H 142/97 H Blood Pressure Mean 115 112 Pulse Oximetry 100 98 100 Oxygen Delivery Method 07/06/19 19:01 07/06/19 19:30 07/06/19 19:31 Temperature Temperature Source Sepsis Recent Fever Within 48 Hours Sepsis Action Taken by Nursing Pulse Rate 85 98 H 92 H Pulse Rate from SpO2 Sensor 84 93 H 89 Pulse Rhythm Pulse Strength Respiratory Rate 16 16 14 Respiratory Effort / Characteristics Respiratory Depth Respiratory Pattern Blood Pressure 130/90 Blood Pressure Mean 103 Pulse Oximetry 100 100 100 Oxygen Delivery Method 07/06/19 20:00 07/06/19 20:01 07/06/19 20:30 Temperature Temperature Source Sepsis Recent Fever Within 48 Hours Sepsis Action Taken by Nursing Pulse Rate 94 H 91 H 117 H Pulse Rate from SpO2 Sensor 91 H 88 Pulse Rhythm Pulse Strength Respiratory Rate 16 22 20 Respiratory Effort / Characteristics Respiratory Depth Respiratory Pattern Blood Pressure 138/96 138/90 Blood Pressure Mean 110 106 Pulse Oximetry 98 89 L Oxygen Delivery Method 07/06/19 20:31 Temperature Temperature Source Sepsis Recent Fever Within 48 Hours Sepsis Action Taken by Nursing Pulse Rate 109 H Pulse Rate from SpO2 Sensor Pulse Rhythm Pulse Strength Respiratory Rate 24 Respiratory Effort / Characteristics Respiratory Depth Respiratory Pattern Blood Pressure Blood Pressure Mean Pulse Oximetry Oxygen Delivery Method GENERAL: Awake, alert, anxious-appearing, in no distress. Patient is tremulous. HENT: Normocephalic, atraumatic. Hematoma to the distal right aspect of tongue that is chronic over the past 2 months. EYES: Normal conjunctiva. Sclera non-icteric. EOMI. No nystamgus. PEARRL. NECK: Supple. No nuchal rigidity. FROM. No JVD. RESPIRATORY: Clear to auscultation bilaterally. CARDIAC: Tachycardic rate, normal rhythm. Extremities warm and well perfused. Pulses equal. ABDOMEN: Soft, non-distended. No tenderness to palpation. No rebound or guarding. No masses. RECTAL: Deferred. MUSCULOSKELETAL: Chest examination reveals no tenderness. The back is symmetrical on inspection without obvious abnormality. There is no CVA tenderness to palpation. No joint edema. LOWER EXTREMITIES: Calves are equal size bilaterally and non-tender. No edema. No discoloration. NEURO: Normal sensorium. No sensory or motor deficits noted. 5/5 strength and SILT x4 extremities. Intact finger to nose, alternating palms, and heel to piña. Normal refluxes. No clonus. SKIN: No rash or jaundice noted. Course 172: The patient was evaluated in room B6, and a complete history and physical examination were performed. 2011: I discussed the patient's case with Dr. Ricci [facility] Hospitalist. He will evaluate the patient for further management Administered Medications Sodium Chloride (Nss 1000ml) 1,000 mls @ 100 mls/hr IV .Q10H SULMA Stop: 08/05/19 21:49 Last Admin: 07/06/19 22:49 Dose: 100 mls/hr Documented by: [id number] Levetiracetam (Keppra) 750 mg PO Q12H SULMA Stop: 08/05/19 20:59 Last Admin: 07/06/19 21:22 Dose: 750 mg Documented by: [id number] Discontinued Medications Multivitamins 10 ml/ Thiamine HCl 100 mg/ Folic Acid 1 mg/Sodium Chloride 1,011.2 mls @ 1,011.2 mls/hr IV .Q1H ONE Stop: 07/06/19 18:33 Last Infusion: 07/06/19 20:50 Dose: 0 mls/hr Documented by: [id number] Admin: 07/06/19 18:36 Dose: 1,011.2 mls/hr Documented by: [id number] Sodium Chloride (Nss 1000ml) 1,000 mls @ 999 mls/hr IV .Q1H1M SULMA Stop: 07/06/19 18:45 Last Infusion: 07/06/19 20:50 Dose: 0 mls/hr Documented by: [id number] Admin: 07/06/19 18:36 Dose: 999 mls/hr Documented by: [id number] Lorazepam (Ativan) 1 mg in 2 mls @ 2 mls/min IV NOW STA Stop: 07/06/19 17:37 Last Admin: 07/06/19 18:36 Dose: 2 mls/min Documented by: [id number] Thiamine HCl 100 mg/ Syringe 10 mls @ 2 mls/min IV NOW STA Stop: 07/06/19 17:42 Last Admin: 07/06/19 18:36 Dose: 2 mls/min Documented by: [id number] Potassium Phosphate 9 mmol/ (Sodium Chloride) 253 mls @ 168 mls/hr IV ONE ONE Stop: 07/06/19 21:15 Last Infusion: 07/06/19 22:49 Dose: 0 mls/hr Documented by: [id number] Admin: 07/06/19 20:44 Dose: 168 mls/hr Documented by: [id number] Lorazepam (Ativan) 1 mg in 2 mls @ 2 mls/min IV NOW STA Stop: 07/06/19 20:10 Last Admin: 07/06/19 20:40 Dose: 2 mls/min Documented by: [id number] Prochlorperazine (Compazine) 2 mls @ 1 mls/min IV ONE ONE Stop: 07/06/19 20:10 Last Admin: 07/06/19 20:39 Dose: 1 mls/min Documented by: [id number] Famotidine (Pepcid 20mg Iv Push) 20 mg in 5 mls @ 2.5 mls/min IV NOW STA Stop: 07/06/19 20:10 Last Admin: 07/06/19 20:39 Dose: 2.5 mls/min Documented by: [id number] Levetiracetam (Keppra) 750 mg PO Q12H SULMA Stop: 08/05/19 20:59 Last Admin: 07/06/19 22:24 Dose: Not Given Documented by: [id number] Potassium Chloride (Jyotsna Ciel Elix) 40 meq PO NOW STA Stop: 07/06/19 20:56 Last Admin: 07/06/19 21:22 Dose: 40 meq Documented by: [id number] Potassium Phosphate (Potassium Phosphate Replace) 9 mmol IV NOW STA Stop: 07/06/19 19:32 Last Admin: 07/06/19 21:08 Dose: Not Given Documented by: [id number] Medical Decision Making Differential Diagnosis Differential diagnosis includes etiologies such as infection, hypoglycemia, electrolyte abnormalities, cardiac sources, intracerebral event, trauma, toxicologic, neurologic, as well as others were entertained. Medical Records Attestation: I reviewed the patient's medical records. Home Medications Current Medication List: was personally reviewed by me Laboratory Data Attestation: I reviewed the patient's lab results. Result diagrams: 07/06/19 17:59 07/06/19 17:59 Lab Results 07/06/19 07/06/19 07/06/19 Range/Units 17:59 17:59 17:59 WBC 6.88 (4.8-10.8) K/uL RBC 4.81 (4.7-6.1) M/uL Hgb 16.6 (14.0-18.0) g/dL Hct 45.3 (42-52) % MCV 94.2 (80-100) fL MCH 34.5 H (25-34) pg MCHC 36.6 H (32-36) g/dL RDW Std Deviation 45.2 (36.4-46.3) fL RDW Coeff of Phill 13.3 (11.5-14.5) % Plt Count 79 L (130-400) K/uL MPV 9.8 (7.4-10.4) fL Immature Gran % (Auto) 0.3 % Neut % (Auto) 90.9 % Lymph % (Auto) 2.6 % [place] % (Auto) 6.1 % Eos % (Auto) 0.0 % Baso % (Auto) 0.1 % Immature Gran # (Auto) 0.02 (0.00-0.02) K/uL Neut # (Auto) 6.25 (1.4-6.5) K/uL Lymph # (Auto) 0.18 L (1.2-3.4) K/uL [place] # (Auto) 0.42 (0.11-0.59) K/uL Eos # (Auto) 0.00 (0-0.5) K/uL Baso # (Auto) 0.01 (0-0.2) K/uL Platelet Estimate Decreased L (Normal) PT 10.8 (9.0-12.0) Seconds INR 1.1 (0.9-1.1) APTT 23.1 (21.0-31.0) Seconds PTT Ratio 0.9 VBG pH (7.36-7.41) VBG pCO2 (38-50) mmHg VBG pO2 mmHg VBG HCO3 mmol/L VBG O2 Saturation % VBG Base Excess mEq/L Barometric Pressure mm/Hg Sodium 136 (136-145) mmol/L Potassium 3.1 L (3.5-5.1) mmol/L Chloride 101 (98-107) mmol/L Carbon Dioxide 22 (21-32) mmol/L Anion Gap 13.0 H (3-11) BUN 15 (7-18) mg/dl Creatinine 1.02 (0.6-1.4) mg/dl Est Cr Clr Drug Dosing 108.0 ml/min Est GFR ( Amer) 118.7 Est GFR (Non-Af Amer) 102.4 BUN/Creatinine Ratio 14.8 (10-20) Glucose 111 H (70-99) mg/dl Calcium 9.5 (8.5-10.1) mg/dl Phosphorus 1.2 L* (2.5-4.9) mg/dl Magnesium 2.3 (1.8-2.4) mg/dl Total Bilirubin 1.4 H (0.2-1) mg/dl Direct Bilirubin 0.3 H (0-0.2) mg/dl AST 60 H (15-37) U/L ALT 39 (12-78) U/L Alkaline Phosphatase 108 (45-117) U/L Troponin I < 0.015 (0-0.045) ng/ml Total Protein 8.6 H (6.4-8.2) gm/dl Albumin 4.8 (3.4-5.0) gm/dl Globulin 3.8 (2.5-4.0) gm/dl Albumin/Globulin Ratio 1.3 (0.9-2) Lipase 226 (73-393) U/L TSH 1.110 (0.300-4.500) uIu/ml Ethyl Alcohol mg/dL (0-3) mg/dl 07/06/19 07/06/19 07/06/19 Range/Units 17:59 17:59 18:04 WBC (4.8-10.8) K/uL RBC (4.7-6.1) M/uL Hgb (14.0-18.0) g/dL Hct (42-52) % MCV (80-100) fL MCH (25-34) pg MCHC (32-36) g/dL RDW Std Deviation (36.4-46.3) fL RDW Coeff of Phill (11.5-14.5) % Plt Count (130-400) K/uL MPV (7.4-10.4) fL Immature Gran % (Auto) % Neut % (Auto) % Lymph % (Auto) % [place] % (Auto) % Eos % (Auto) % Baso % (Auto) % Immature Gran # (Auto) (0.00-0.02) K/uL Neut # (Auto) (1.4-6.5) K/uL Lymph # (Auto) (1.2-3.4) K/uL [place] # (Auto) (0.11-0.59) K/uL Eos # (Auto) (0-0.5) K/uL Baso # (Auto) (0-0.2) K/uL Platelet Estimate (Normal) PT (9.0-12.0) Seconds INR (0.9-1.1) APTT (21.0-31.0) Seconds PTT Ratio VBG pH 7.49 H (7.36-7.41) VBG pCO2 31 L (38-50) mmHg VBG pO2 29 mmHg VBG HCO3 24 mmol/L VBG O2 Saturation 60.2 % VBG Base Excess 1.3 mEq/L Barometric Pressure 738.0 mm/Hg Sodium (136-145) mmol/L Potassium (3.5-5.1) mmol/L Chloride (98-107) mmol/L Carbon Dioxide (21-32) mmol/L Anion Gap (3-11) BUN (7-18) mg/dl Creatinine (0.6-1.4) mg/dl Est Cr Clr Drug Dosing ml/min Est GFR ( Amer) Est GFR (Non-Af Amer) BUN/Creatinine Ratio (10-20) Glucose (70-99) mg/dl Calcium (8.5-10.1) mg/dl Phosphorus (2.5-4.9) mg/dl Magnesium (1.8-2.4) mg/dl Total Bilirubin (0.2-1) mg/dl Direct Bilirubin Cancelled (0-0.2) mg/dl AST (15-37) U/L ALT (12-78) U/L Alkaline Phosphatase (45-117) U/L Troponin I (0-0.045) ng/ml Total Protein (6.4-8.2) gm/dl Albumin (3.4-5.0) gm/dl Globulin (2.5-4.0) gm/dl Albumin/Globulin Ratio (0.9-2) Lipase (73-393) U/L TSH (0.300-4.500) uIu/ml Ethyl Alcohol mg/dL < 3.0 (0-3) mg/dl Imaging Data Radiologist's Impression: Radiology results as stated below per my review and the radiologist's interpretation: XR chest 1V portable HISTORY: 23 years-old Male Chest Pain acute atypical chest pain COMPARISON: Chest radiograph 05/20/2019 TECHNIQUE: Portable AP view of the chest FINDINGS: Cardiomediastinal and hilar silhouettes are within normal limits. No pneumothora x, pleural effusion, focal airspace consolidation or overt pulmonary edema. Bones of the chest appear grossly intact. Degenerative changes of the right AC joint redemonstrated. Cholecystectomy. IMPRESSION: No acute process. The above report was generated using voice recognition software. It may contain grammatical, syntax or spelling errors. Electronically signed by: Dov Schmitz M.D. 07/06/2019 5:[address] head/brain wo con CLINICAL HISTORY: 23 years-old Male with seizures. Acute seizure like activity TECHNIQUE: Multiple axial CT images of the head were obtained without contrast. A dose lowering technique was utilized adhering to the principles of ALARA. CT DOSE: 537.48 mGy.cm COMPARISON: Head CT 05/30/2019. FINDINGS: No acute intracranial hemorrhage, midline shift, intracranial mass, hydrocephalus, territorial ischemia or abnormal extra-axial collection. The calvarium is intact. The paranasal sinuses, mastoid air cells, and middle ear cavities are clear. IMPRESSION: No acute intracranial abnormality. The above report was generated using voice recognition software. It may contain grammatical, syntax or spelling errors. Electronically signed by: Dov Schmitz M.D. 07/06/2019 6:58 PM ECG Data Attestation: I personally reviewed and interpreted this ECG as follows: Indication: + syncope Rate (beats per minute): 93 Rhythm: + sinus with SA ECG Intervals/blocks: + Incomplete right bundle branch block ECG ST segments: no ST depression and no ST elevation ECG Findings: + PVCs (frequent) and + Other (QTc is 455) Blood Pressure Blood Pressure Findings: Elevated blood pressure Blood Pressure Disposition: further management by hospitalist BELGICA Archer The patient is a pleasant 23-year-old gentleman with a past medical history of alcohol abuse who presents emergency department with seizure-like episodes over the past 2 days where he reports episode yesterday when he was at home and then this morning and again when he was at [employer] per hpi. On arrival patient is anxious appearing and mildly tremulous in no acute distress, afebrile stable vital signs. On exam patient has a hematoma of his distal right tongue that is been chronic for the past several months after he was seen in the emergency department for this. Of note at that time and even today the patient is adamant that he has been not he has not been drinking alcohol for some time. However this is despite being in the emergency department recently for alcohol intoxication with an alcohol of 400. Despite my best attempts to educate the patient on being since years a week it treat him most appropriately he continues to be not forthcoming and evasive regarding questioning of his alcohol use. Certainly given evidence that he is drinking alcohol these episodes could be related to alcohol withdrawal. Given his chronically low platelets certainly could be concerning for ICH. CT head was performed and negative. WBC, H/H within normal limits. Platelets 79 slightly decreased from prior values recently. VBG unremarkable. Chemistry without acidosis. Patient does have low phosphorus of 1.2 with repletion provided. AST slightly elevated at 60 similar to prior and in the setting of the patient's heavy alcohol use. Troponin negati ve. UA with 3+ ketones consistent with the patient's clinically dry appearance. Otherwise epithelial cells are> 30 patient denies any urinary symptoms. EtOH negative. I did have extensive discussion with the patient regarding my high suspicion that he is having recurrent alcohol withdrawal seizures. These certainly are most likely what explained his initial development of a hematoma back in May however he denied alcohol use at that time. I did explain to him that we could not safely discharge him in his current state and until he is able to get his condition under control he should not drive and if he is to leave the hospital before this is controlled the DMV would need to be contacted to revoke his license. Family patient was agreeable to be admitted to the hospital. He was treated with banana bag and additional thiamine, as well as Ativan and antiemetics. Case was discussed with Dr. Ricci, [facility] hospitalist, who will evaluate the patient for admission. Impression & Plan Alcohol withdrawal, Alcohol withdrawal seizure, Hypophosphatemia, Thrombocytopenia Critical Care Time Critical Care Time: Yes Total Critical Care Time: 45 I have personally spent greater than 45 minutes of critical care time in the direct management of this patient. This includes bedside care, interpretation of diagnostic studies, and testing, discussion with consultants, patient, and family members, and other required patient management activities. This 45 minutes is in excess of all separately billable procedures. Discharge Plan Visit Data *Final* Discharge Date/Time: 07/06/19 21:40 Chief Complaint: Seizure Stated Complaint: SEIZURE ED Provider: Valentin Hastings Discharge Problem: Alcohol withdrawal, Alcohol withdrawal seizure, Hypophosphatemia, Thrombocytopenia Patient Disposition: Admitted As Inpatient Discharge Instructions Interventions: ED Discharge Assessment Last Done: 07/06/19 21:40 Discharge Problem: Alcohol withdrawal Qualifiers: Complication of substance-induced condition: with unspecified complication Qualified Code(s): F10.239 - Alcohol dependence with withdrawal, unspecified Alcohol withdrawal seizure Qualifiers: Complication of substance-induced condition: with unspecified complication Qualified Code(s): F10.239 - Alcohol dependence with withdrawal, unspecified The scribe's documentation has been prepared under my direction and personally reviewed by me in its entirety. I confirm that the note above accurately reflects all work, treatment, procedures, and medical decision making performed by me.
--- NOTE | 2019-07-06 19:00 | CT Scan Report ---
CT head/brain wo con CLINICAL HISTORY: 23 years-old Male with seizures. Acute seizure like activity TECHNIQUE: Multiple axial CT images of the head were obtained without contrast. A dose lowering tech nique was utilized adhering to the principles of ALARA. CT DOSE: 537.48 mGy.cm COMPARISON: Head CT 05/30/2019. FINDINGS: No acute intracranial hemorrhage, midline shift, intracranial mass, hydrocephalus, territorial ischem ia or abnormal extra-axial collection. The calvarium is intact. The paranasal sinuses, mastoid air cells, and middle ear cavities are clear . IMPRESSION: No acute intracranial abnormality. The above report was generated using voice recognition software. It may contain grammatical, syntax o r spelling errors. Electronically signed by: Dov Schmitz M.D. 07/06/2019 6:58 PM
[2019-07-06] MEDS ORDERED: POTASSIUM PHOS 3 MMOL/1 ML INFUSION IV STA (19:31)
[2019-07-06] MEDS ORDERED: POTASSIUM PHOSPHATE 9 MMOL in SODIUM CHLORIDE 0.9% 250 ML IV ONE (19:45)
[2019-07-06] MEDS ORDERED: FAMOTIDINE 20MG IV PUSH 20 MG/5 ML SYR IV STA (20:09)
[2019-07-06] MEDS ORDERED: PROCHLORPERAZINE 2 ML IV ONE (20:09)
[2019-07-06] MEDS ORDERED: POTASSIUM CHLORIDE 20 MEQ/15 ML UDC PO STA (20:55)
[2019-07-06 21:12] LABS: Appearance Urine Clear (Clear); Bacteria Urine Automated Negative (Negative); Bilirubin Urine Negative (Negative); Blood Urine Negative (Negative); Color Urine Dark Yellow; Epithelial Cell Urine Auto >30 /lpf (0-5); Glucose Urine UA Negative (Negative); Leukocyte Esterase Urine Negative (Negative); Nitrite Urine Negative (Negative); Protein Urine 2+ (Negative); RBC Urine Automated 0-4 /hpf (0-4); Specific Gravity Urine 1.021 (1.000-1.030); Urobilinogen Urine Negative (Negative)
[2019-07-06 21:14] LABS: Ketones Urine 3+ (Negative)
--- NOTE | 2019-07-06 21:21 | History & Physical Report ---
Date of Service July 06, 2019 Assessment & Plan (1) Seizure: -Admit to telemetry -Patient presenting after suspected seizure while at the grocery store -Patient with history of heavy alcohol use, patient adamant that he has not had a drink since 06/27; EtOH level negative in the ED -Given patient's history of heavy alcohol use, this may or may not be an alcohol withdrawal seizure -Case was discussed with neurology, will start Keppra 750 mg twice daily in addition to gabapentin per alcohol withdrawal protocol -CT head negative for acute findings; check brain MRI -Seizure precautions (2) Alcohol abuse: -Management as above for possible withdrawal seizure -Received banana bag in the ED -Multivitamin, thiamine, folic acid -Gabapentin and PRN Ativan per alcohol withdrawal protocol (3) Vomiting: -? Alcohol gastritis -Feeling improved after therapies received in the ED -Continue supportive care with PRN antiemetics, IV Pepcid, IVF (4) Tongue abnormality: -Noted to have tongue hematoma -Has been an ongoing issue recently and has been following with oral surgery -Now worsened after tongue biting during possible seizure -Maintaining airway, swallowing without difficulty -Consult for Dr. Soto placed (5) Hypokalemia: (6) Hypophosphatemia: -K+ 3.1, phosphorus 1.2 -Replace, follow electrolytes (7) Thrombocytopenia: -Chronic, likely secondary to chronic alcohol use -No signs of bleeding -Monitor platelets (8) DVT prophylaxis: -SCDs, ambulate History of Present Illness Chief Complaint: Possible seizure Primary Care Provider: NO PCP 23-year-old male who presents the ED for evaluation of possible seizure. Patient with history of very heavy alcohol use, most recent visit to the ED on 06/27 for alcohol intoxication with alcohol level of over 400. Patient reports for the past couple of days, he has had persistent vomiting. He describes emesis is bilious in nature. No hematemesis or coffee-ground emesis. Denies abdominal pain and diarrhea. Today, patient was at the grocery store when he reports he started to feel lightheaded and dizzy in the next thing he knew he woke up in the ambulance. Bystanders were concerned for possible seizure. Patient did bite his tongue. There was no loss of bowel or bladder function. Patient has had an ongoing tongue hematoma for the past couple months in which she has been following oral surgery for. Tongue swelling is now much worse after the event today. Patient is adamant that he has not had any alcohol since 06/27. Denies any history of prior seizures in the past. No other recent illnesses, fevers, chills. Denies chest pain and shortness of breath. No urinary symptoms. In the ED, patient is hemodynamically stable. Labs show K+ 3.1, phosphorus 1.2. Head CT is negative for acute findings. Patient was given IV Pepcid, IV lorazepam, banana bag, IV potassium phosphate, IV Compazine, NSS. Patient reports he is feeling improved. Allergies Allergy/AdvReac Type Severity Reaction Status Date / Time No Known Allergies Allergy Verified 07/06/19 18:44 Home Medications Home Medications Medication Instructions Recorded Confirmed Type No Known Home Medications 05/30/19 07/06/19 History Past Med/Surg History Medical History Alcohol abuse (Chronic) Post traumatic stress disorder (Chronic) Hematoma (Inactive) TONGUE Thrombocytopenia (Inactive) PT UNAWARE Surgical History S/P cholecystectomy (Chronic) Hx of unilateral orchiectomy (Chronic) Social History Preferred Language: Turkmen Communication Ability: Effective Visual Impairment: No Limitations Farmer General Required: No Beliefs That Will Affect Care: None marital status: Single Current Living Situation: Alone current occupational status: 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 Feels Safe at Home: Yes Smoking Status: Never smoker Do You Dip or Chew Tobacco: No ; Second Hand Exposure: No ; Hx Alcohol Use: Yes Alcohol type: other Alcohol Intake Frequency Comment: History of heavy alcohol use; last drink 06/27 Hx Substance Use: No Review of Systems Review of Systems: ROS per HPI, all other systems reviewed and negative Physical Exam Constitutional: WD/WN, vitals as above Eyes: PERRL, conjunctivae normal, anicteric sclerae ENMT: Ears: no external ear abnormality Nose: no external nose abnormality Mouth: + tongue abnormality (Ecchymosis and edema noted to right distal tongue) Respiratory: normal respiratory effort, lungs clear to auscultation Cardiovascular: Rate/Rhythm: regular rate and regular rhythm Vessels: normal peripheral pulses Extremities: no edema Gastrointestinal (Abdomen): normal bowel sounds, soft, nontender, no hepatosplenomegaly Musculoskeletal: no cyanosis or clubbing, extremities motor strength 5/5 Skin: no rashes, warm and dry Neurologic: PERRL, EOMI, accommodation nl, no face palsy, no dysarthria Psychiatric: A+Ox3, euthymic affect Results & Data Vital Signs (Past 12 Hours) Vital Signs Temp Pulse Resp BP Pulse Ox 07/06/19 20:31 109 H 24 07/06/19 20:30 117 H 20 138/90 07/06/19 20:01 91 H 22 89 L 07/06/19 20:00 94 H 16 138/96 98 07/06/19 19:31 92 H 14 100 07/06/19 19:30 98 H 16 130/90 100 07/06/19 19:01 85 16 100 07/06/19 19:00 102 H 16 142/97 H 100 07/06/19 18:57 102 H 14 138/104 H 98 07/06/19 18:31 100 H 17 100 07/06/19 18:30 96 H 15 142/117 H 100 07/06/19 18:01 109 H 17 98 07/06/19 18:00 99 H 15 127/91 100 07/06/19 17:31 106 H 20 140/114 H 96 07/06/19 17:30 112 H 17 100 07/06/19 17:01 117 H 17 97 07/06/19 17:00 36.8 C 115 H 11 L 133/94 97 07/06/19 16:57 110 H 13 145/93 H 97 Laboratory Results Short CBC 07/06/19 Range/Units 17:59 WBC 6.88 (4.8-10.8) K/uL Hgb 16.6 (14.0-18.0) g/dL Hct 45.3 (42-52) % Plt Count 79 L (130-400) K/uL BMP 07/06/19 17:59 Sodium 136 Potassium 3.1 L Chloride 101 Carbon Dioxide 22 BUN 15 Creatinine 1.02 Glucose 111 H Calcium 9.5 Cardiac Enzymes 07/06/19 Range/Units 17:59 Troponin I < 0.015 (0-0.045) ng/ml Liver Function 07/06/19 07/06/19 Range/Units 17:59 17:59 Total Bilirubin 1.4 H (0.2-1) mg/dl Direct Bilirubin 0.3 H Cancelled (0-0.2) mg/dl AST 60 H (15-37) U/L ALT 39 (12-78) U/L Alkaline Phosphatase 108 (45-117) U/L Albumin 4.8 (3.4-5.0) gm/dl Urine 07/06/19 Range/Units 21:00 Urine Color Dark Yellow Urine Appearance Clear (Clear) Urine pH 7.0 (4.5-7.5) Ur Specific [place] 1.021 (1.000-1.030) Urine Protein 2+ H (Negative) Urine Glucose (UA) Negative (Negative) Diagnostic Findings CXR IMPRESSION: No acute process. HEAD CT IMPRESSION: No acute intracranial abnormality. Code Status & VTE Plan VTE Prophylaxis Plan VTE Prophylaxis will be ordered: Yes Supervising Physician Co-Signing Physician Notes Care coordinated with CYNDI Brewer. Agree with above note. Patient seen and examined. Please refer to her notes for full details. Vital signs reviewed. Physical exam: General exam: Alert and oriented. Not in acute distress. CVS: S1 and S2 heard, regular rate and rhythm, no murmurs. RS: Clear to auscultation, no wheezing or crackles. ABD: Soft, bowel sounds present, nontender, no distention. ROD HANGER: Nonfocal. EXT: No edema, no erythema. Labs: Reviewed. Assessment and plan: 23M with hx of alocholism became unresponsive at [facility] and woke up in ambulance and was post ictal when he came to ER. Later he was shaky and received ativan. Currently alert and oriented. Last time he was in ER on Jun 27 with alcohol intoxication. And patient says since then he was not drinking.He also came to ER in May with biting of his tounge and tounge hematoma..Following with oral surgeon. Seems it got worse currently he is only able to take liquid diet. Seizures Alcohol withdrawal seizure vs underlying seziure disorder Was discussed with neurology starting on keppra, follow MRI head, eeg also starting on gabapentin alcohol withdrawal protocol and ativan prn close monitor Alcoholism says he dose not drink regularly received banana bag thiamine and folic acid daily monitor for withdrawal electrolyte abnormalities replace follow labs. Other diagnosis and plan of care as per CYNDI Brewer.. Rudy dubois MD.
[2019-07-06] MEDS: levETIRAcetam ORAL SOLN 100MG/ML PO SCH (21:22)
[2019-07-06 21:23] LABS: Mucus Urine Present (None Prsent); Renal Epithelial Cells Urine 0-5 /lpf (0-5)
[2019-07-06 21:28] LABS: Amphetamines+Metham, Urine Neg (Neg); Barbiturates, Urine Neg (Neg); Benzodiazepine, Urine Neg (Neg); Cocaine, Urine Neg (Neg); MDMA (Ecstacy), Urine Neg (Neg); Methadone, Urine Neg (Neg); Opiate, Urine Neg (Neg); Phencyclidine, Urine Neg (Neg)
[2019-07-06] MEDS ORDERED: LORazepam 1 MG TAB PO PRN ×2 (21:50)
[2019-07-06] MEDS ORDERED: ATIVAN IV ALCOHOL WITHDRAWL IV SCH (21:50)
[2019-07-06] MEDS ORDERED: LORazepam 2 MG/4 ML VIAL IV PRN (21:50)
[2019-07-06] MEDS ORDERED: GABAPENTIN 1200MG ALCOHOL WITHDRAWAL LOAD PO STA (21:50)
[2019-07-06] MEDS ORDERED: LORazepam 3 MG/6 ML VIAL IV PRN (21:50)
[2019-07-06] MEDS ORDERED: ACETAMINOPHEN 325 MG TAB PO PRN (21:50)
[2019-07-06] MEDS ORDERED: GABAPENTIN 600 MG TAB PO SCH (22:00)
[2019-07-06] MEDS: SODIUM CHLORIDE 0.9% 1000ML 1,000 ML IV SCH (22:49)
[2019-07-07] MEDS ORDERED: GABAPENTIN 600 MG TAB PO SCH ×2 (04:00→18:00)
[2019-07-07] MEDS: GABAPENTIN 250 MG/5 ML 470 ML BTL PO SCH ×6 (05:25→14:57)
[2019-07-07 06:38] LABS: Hematocrit (blood only) 38.2 % (42-52); Hemoglobin 13.3 g/dL (14.0-18.0); Mean Corpuscular Hemoglobin 33.5 pg (25-34); Mean Corpuscular Hgb Conc 34.8 g/dL (32-36); Mean Corpuscular Volume 96.2 fL (80-100); Mean Platelet Volume 9.8 fL (7.4-10.4); Platelet Count 66 K/uL (130-400); RDW Coefficient of Variation 13.5 % (11.5-14.5); Red Blood Count 3.97 M/uL (4.7-6.1); White Blood Count 4.11 K/uL (4.8-10.8)
[2019-07-07 06:43] LABS: Platelet Estimate Decreased (Normal)
[2019-07-07 06:57] LABS: BUN Creatinine Ratio 12.8 (10-20); Calcium 8.2 mg/dl (8.5-10.1); Creatinine Clr Calc Pharmacy 160.3 ml/min; Est GFR (African American) 147.2; Magnesium 2.1 mg/dl (1.8-2.4); Potassium 3.2 mmol/L (3.5-5.1)
[2019-07-07 06:59] LABS: Phosphorus 3.6 mg/dl (2.5-4.9)
[2019-07-07] MEDS: SODIUM CHLORIDE 0.9% 1000ML 1,000 ML IV SCH ×2 (07:27→17:05)
[2019-07-07] MEDS ORDERED: POTASSIUM ACETATE 20 MEQ in 0.9 % SODIUM CHLORIDE 100 ML IV STA (07:58)
[2019-07-07] MEDS: FAMOTIDINE 20 MG in SYRINGE 3 ML IV SCH ×2 (08:31→20:19)
[2019-07-07] MEDS: MULTIVITAMIN TAB PO SCH (08:32)
[2019-07-07] MEDS: FOLIC ACID 1 MG TAB PO SCH (08:32)
[2019-07-07] MEDS: LORazepam 1 MG/2 ML VIAL IV PRN ×2 (08:46→22:49)
[2019-07-07] MEDS: levETIRAcetam ORAL SOLN 100MG/ML PO SCH (08:46)
[2019-07-07] MEDS ORDERED: THIAMINE HCL 100 MG TAB PO SCH (09:00)
[2019-07-07] MEDS ORDERED: GADOBUTROL 65ML VIAL IV PRN (10:50)
--- NOTE | 2019-07-07 11:05 | Magnetic Resonance Report ---
MR brain seizure wo/w con HISTORY: 23 years-old Male seizure acute seizure like activity with lethargy COMPARISON: CT head 07/06/2019 TECHNIQUE: Multiplanar multisequence MRI of the brain was obtained both with and without the use of 7 .6 mL Gadavist utilizing seizure protocol. FINDINGS: No gross abnormality identified on the large [id number] staff nurse midwife localizer images. There is no restri cted diffusion to suggest acute or subacute infarction. Midline structures including the corpus callo sum, brainstem, optic chiasm, pituitary and pineal glands appear unremarkable on the sagittal T1 seri es. No cerebellar tonsillar herniation. Imaged cervical spine appears unremarkable. There is no acute intracranial hemorrhage, midline shift, abnormal extra-axial collection, hydrocephalus or intracrani al mass. There are no significant T2/FLAIR signal abnormalities of the brain parenchyma identified. N o acute seizure focus, cortical dysplasia, galeana matter heterotopia or mesial temporal sclerosis ident ified. No abnormal intra-axial or extra-axial enhancement. The major flow voids at the level of the skull base appear patent. Mastoid air cells are clear. Mucos al thickening of the left nasal turbinates and bilateral ethmoid air cells. Left prashant bullosa. The skull, soft tissues and orbits are unremarkable. IMPRESSION: 1. No acute intracranial abnormality. 2. No abnormal enhancement. The above report was generated using voice recognition software. It may contain grammatical, syntax o r spelling errors. Electronically signed by: oDv Schmitz M.D. 07/07/2019 11:03 AM
--- NOTE | 2019-07-07 11:44 | Neurology Consultation ---
Date of Consultation July 07, 2019 Assessment & Plan (1) Seizure: Mr. Lozano is a 23 year old male admitted with new onset seizure where he is amnestic to the event. On examine he is tremulous and has moderate to severe dysarthria due tongue hematoma / copious bleeding of the mouth. He denies heavy alcohol use and reports drinking socially. He denies history of alcohol withdrawal symptoms or craving for alcohol. On examine he is tremulous with outstreched hands but reports this is his normal. He has not consumed alcohol for >9 days and EtOH level and UDS was Negative. My suspicion for alcohol withdrawal seizure is low based off the time course of the event. Although his labs would suggest he may be drinking more than he is verbalizing. I did enforce that he needs to avoid alcohol. Continue Keppra 750 mg BID indefinetly for now. Discussed AE including sedation and mood changes. MRI reviewed and discussed with patient. Normal appearing MRI brain. Will arrange routine EEG as outpatient. continue thiamine and agree wiht electrolyte replacement. Would check B12 and folate if not already performed. In regards to the tongue hematoma I will defer to oral surgery. I did discuss with [place] law states he is NOT allowed to drive for six months. Agree with seizure precautions while inpatient. (2) Thrombocytopenia: (3) Alcohol use: (4) Abrasion of tongue: History of Present Illness Reason for Consultation: Seizure Attending Physician: Yasmeen Laura MD History of Present Illness A 23 year old male with history of alcohol withdrawal admitted for seizure yesterday. Last drink was reported to be 9 days ago, 06/27/2019. Urine drug scfeen and UDS was Negative in the ED. He was treated for N/V in the ED thought to be secondary to alcoholic gastritis. Vital signs were stable. Labs showed elevated AST, low K, and low Plt consistent with alcohol use history. He is following with oral sugrery for a tongue hematoma. Paient denies any history of head trauma, encephalitis, mengingitis, or febrile seizures. Denies an ilicit drug use. 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 Denies alcohol withdrawl. He does not remember event yesterday but bit his tongue and woke in ambulance and felt confused. he reports one other episode which occured at home where he call his family to report seizure. Allergies Allergy/AdvReac Type Severity Reaction Status Date / Time No Known Allergies Allergy Verified 07/06/19 18:44 Home Medications Home Medications Medication Instructions Recorded Confirmed Type No Known Home Medications 05/30/19 07/06/19 History Patient History Medical History Alcohol abuse (Chronic) Post traumatic stress disorder (Chronic) Hematoma (Inactive) TONGUE Thrombocytopenia (Inactive) PT UNAWARE Surgical History S/P cholecystectomy (Chronic) Hx of unilateral orchiectomy (Chronic) Social History Preferred Language: Singaporean Communication Ability: Effective Visual Impairment: No Limitations Executive Consultant Required: No Beliefs That Will Affect Care: None marital status: Single Current Living Situation: Alone current occupational status: 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 Feels Safe at Home: Yes Smoking Status: Never smoker Do You Dip or Chew Tobacco: No ; Second Hand Exposure: No ; Hx Alcohol Use: Yes Alcohol type: other Alcohol Intake Frequency Comment: History of heavy alcohol use; last drink 06/27 Hx Substance Use: No Physical Exam Physical Exam: EXAM: Constitutional: appears acutely ill , no distress Head and Face: normocephalic and atraumatic Mouth: swollen tongue with copious blood Eyes: normal lids Neck: supple Respiratory: normal effort Cardiovascular: normal pulses Abdomen: non distended Skin: no rashes, lesions, or ulcers noted Psychiatric: normal judgement and insight, normal mood and normal affect NEUROLOGIC EXAMINATION: Appearance: no acute distress Orientation: awake, alert and oriented x 3 Mental Status: alert Memory: Good Attention: normal Knowledge: appropriate Language: no aphasia Speech: moderate dysarthria Cranial Nerves: CN 2 - no visual defect on confrontation and pupils round, equal, reactive to light CN 3, 4, 6 - extra-ocular movements intact and no nystagmus CN 5 - facial sensation intact CN 7 - no facial asymmetry CN 8 - intact hearing CN 9, 10 - palate symmetric CN 11 - good shoulder shrug CN 12 - tongue midline Gait: deferred Coordination: mildly tremulous with outstretched hands, no ataxia, no myoclonic jerks, no asterixis Sensory: intact and symmetric to light touch Muscle Tone: normal Muscle exam: 5/5 throughout Reflexes: Brisk at the knees, toes down going, no clonus Results & Data Vital Signs (Past 12 Hours) Vital Signs Temp Pulse Resp BP Pulse Ox 07/07/19 11:35 36.9 C 97 H 18 102/70 98 07/07/19 08:12 37.1 C 80 16 126/81 99 07/07/19 03:04 37.0 C 86 18 131/85 100 Diagnostic Findings MRI brain w/wo: IMPRESSION: 1. No acute intracranial abnormality. 2. No abnormal enhancement.
--- NOTE | 2019-07-07 12:25 | Hospitalist Progress Note ---
Date of Service July 07, 2019 Assessment & Plan (1) Seizure: Suspected seizure History of heavy alcohol abuse Reports no drink since 06/27/19. Negative alcohol level on admission Currently on keppra 750mg po. Will change to iv Follow up Neurology recs Alcohol withdrawal protocol. Discussed with RN to monitor breathing status if patient requires ativan. CT and MRI reviewed. Unremarkable Seizure precautions (2) Alcohol abuse: Management as above for possible withdrawal seizure Got MVI in the ED Continue thiamine, folic acid Alcohol withdrawal protocol (3) Vomiting: Currently resolved Antinausea medication as needed (4) Tongue abnormality: Has been an ongoing issue recently and has been following with oral surgery Was seen by Dr Enrique Soto on 06/15/19 for tongue swelling which has been ongoing for weeks without improvement. Face CT done showed 7mm calculus within distal left submandibular duct Concern for ?hematoma vs mass. Was being planned for surgery per surgeons note Currently maintaining airway Keep NPO for now iv ketorolac for pain Awaiting oromaxillofacial evaluation (5) Hypokalemia: (6) Hypophosphatemia: K 3.2 this morning, Hypophosphatemia has resolved Being repleted. Continue to monitor (7) Thrombocytopenia: Chronic, likely secondary to chronic alcohol use Monitor platelets (8) DVT prophylaxis: SCDs, ambulate Subjective Patient seen and examined. Patient reports tongue pain and swelling Reports some difficulty with swallowing due to swelling Denied any difficulty breathing or shortness of breath Reported that last drink was prior to last presentation on 06/27/19 Denied any fevers, chills, nausea Denied abdominal pain, diarrhea Review of Systems Review of Systems: All systems reviewed and unremarkable except for mentioned above. Physical Exam Constitutional: well developed; no acute distress Altered speech due to swollen tongue Eyes: PERRL, conjunctivae normal, anicteric sclerae ENMT: Tongue is swollen in oral cavity. No active bleeding. some blood tinged secretion on oral cavity Difficult to visualize uvula Neck: trachea midline Respiratory: normal respiratory effort, lungs clear to auscultation Cardiovascular: RRR, no murmur, no edema Gastrointestinal (Abdomen): normal bowel sounds, soft, nontender, no hepatosplenomegaly Neurologic: PERRL, EOMI, accommodation nl, no face palsy, no dysarthria Psychiatric: A+Ox3, euthymic affect Results & Data Vital Signs (Past 12 Hours) Vital Signs Temp Pulse Resp BP Pulse Ox 07/07/19 11:35 36.9 C 97 H 18 102/70 98 07/07/19 08:12 37.1 C 80 16 126/81 99 07/07/19 03:04 37.0 C 86 18 131/85 100 Laboratory Results Short CBC 07/06/19 07/07/19 Range/Units 17:59 06:03 WBC 6.88 4.11 L (4.8-10.8) K/uL Hgb 16.6 13.3 L D (14.0-18.0) g/dL Hct 45.3 38.2 L (42-52) % Plt Count 79 L 66 L (130-400) K/uL BMP 07/06/19 07/07/19 17:59 06:03 Sodium 136 139 Potassium 3.1 L 3.2 L Chloride 101 107 Carbon Dioxide 22 22 BUN 15 10 D Creatinine 1.02 0.77 Glucose 111 H 77 Calcium 9.5 8.2 L Cardiac Enzymes 07/06/19 Range/Units 17:59 Troponin I < 0.015 (0-0.045) ng/ml Liver Function 07/06/19 07/06/19 Range/Units 17:59 17:59 Total Bilirubin 1.4 H (0.2-1) mg/dl Direct Bilirubin 0.3 H Cancelled (0-0.2) mg/dl AST 60 H (15-37) U/L ALT 39 (12-78) U/L Alkaline Phosphatase 108 (45-117) U/L Albumin 4.8 (3.4-5.0) gm/dl Urine 07/06/19 Range/Units 21:00 Urine Color Dark Yellow Urine Appearance Clear (Clear) Urine pH 7.0 (4.5-7.5) Ur Specific [place] 1.021 (1.000-1.030) Urine Protein 2+ H (Negative) Urine Glucose (UA) Negative (Negative)
[2019-07-07] MEDS: KETOROLAC TROMETHAMINE 15 MG/ML VIAL IV PRN ×2 (12:31→20:18)
[2019-07-07 16:21] LABS: Alanine Aminotransferase 30 U/L (12-78); Albumin Level 3.9 gm/dl (3.4-5.0); Aspartate Aminotransferase 44 U/L (15-37); BUN Creatinine Ratio 9.3 (10-20); Blood Urea Nitrogen 7 mg/dl (7-18); Calcium 8.2 mg/dl (8.5-10.1); Carbon Dioxide 23 mmol/L (21-32); Chloride 106 mmol/L (98-107); Creatinine Clr Calc Pharmacy 171.4 ml/min; Est GFR (African American) > 150.0; Est GFR (Non-African American) 130.6; Glucose 73 mg/dl (70-99); Potassium 3.2 mmol/L (3.5-5.1); Sodium 137 mmol/L (136-145)
[2019-07-07 16:25] LABS: Albumin Globulin Ratio 1.4 (0.9-2); Alkaline Phosphatase 82 U/L (45-117); Bilirubin,Total 1.3 mg/dl (0.2-1); Globulin 2.7 gm/dl (2.5-4.0); Total Protein 6.6 gm/dl (6.4-8.2)
[2019-07-07 16:39] LABS: Hematocrit (blood only) 39.8 % (42-52); Hemoglobin 13.7 g/dL (14.0-18.0)
[2019-07-07] MEDS: POTASSIUM CHLORIDE / WTR 10 MEQ/100 ML PLCT IV SCH ×3 (16:46→18:44)
[2019-07-07] MEDS: levETIRAcetam 750 MG in DEXTROSE 5% 100 ML IV SCH (20:19)
[2019-07-08] MEDS: KETOROLAC TROMETHAMINE 15 MG/ML VIAL IV PRN ×4 (01:57→22:59)
[2019-07-08] MEDS: GABAPENTIN 250 MG/5 ML 470 ML BTL PO SCH ×2 (02:03→08:33)
[2019-07-08] MEDS: SODIUM CHLORIDE 0.9% 1000ML 1,000 ML IV SCH ×2 (02:06→13:17)
[2019-07-08 06:20] LABS: Hematocrit (blood only) 36.8 % (42-52); Hemoglobin 12.8 g/dL (14.0-18.0); Mean Corpuscular Hemoglobin 33.2 pg (25-34); Mean Corpuscular Hgb Conc 34.8 g/dL (32-36); Mean Corpuscular Volume 95.6 fL (80-100); RDW Coefficient of Variation 13.4 % (11.5-14.5); RDW Standard Deviation 45.9 fL (36.4-46.3); Red Blood Count 3.85 M/uL (4.7-6.1); White Blood Count 3.45 K/uL (4.8-10.8)
[2019-07-08 06:54] LABS: Alanine Aminotransferase 25 U/L (12-78); Albumin Level 3.9 gm/dl (3.4-5.0); Aspartate Aminotransferase 36 U/L (15-37); BUN Creatinine Ratio 11.3 (10-20); Blood Urea Nitrogen 8 mg/dl (7-18); Calcium 8.6 mg/dl (8.5-10.1); Carbon Dioxide 20 mmol/L (21-32); Chloride 103 mmol/L (98-107); Creatinine Clr Calc Pharmacy 174.9 ml/min; Est GFR (African American) > 150.0; Est GFR (Non-African American) 133.7; Glucose 70 mg/dl (70-99); Potassium 3.2 mmol/L (3.5-5.1); Sodium 137 mmol/L (136-145)
[2019-07-08 06:57] LABS: Albumin Globulin Ratio 1.5 (0.9-2); Alkaline Phosphatase 78 U/L (45-117); Bilirubin,Total 1.7 mg/dl (0.2-1); Globulin 2.7 gm/dl (2.5-4.0); Total Protein 6.6 gm/dl (6.4-8.2)
[2019-07-08 07:11] LABS: Platelet Count 63 K/uL (130-400)
[2019-07-08] MEDS: THIAMINE HCL 100 MG in SYRINGE 9 ML IV SCH (08:21)
[2019-07-08] MEDS: FOLIC ACID 1 MG TAB PO SCH (08:21)
[2019-07-08] MEDS: MULTIVITAMIN TAB PO SCH (08:21)
[2019-07-08] MEDS: levETIRAcetam 750 MG in DEXTROSE 5% 100 ML IV SCH ×2 (08:25→21:14)
[2019-07-08] MEDS: FAMOTIDINE 20 MG in SYRINGE 3 ML IV SCH (08:44)
[2019-07-08] MEDS: POTASSIUM ACETATE 20 MEQ in 0.9 % SODIUM CHLORIDE 100 ML IV SCH ×2 (09:56→13:15)
--- NOTE | 2019-07-08 11:47 | Hospitalist Progress Note ---
Date of Service July 08, 2019 Assessment & Plan (1) Tongue abnormality: Has been an ongoing issue recently and has been following with oral surgeon Dr Enrique Soto. Was seen by Dr Enrique Soto on 06/15/19 for tongue swelling which has been ongoing for weeks without improvement. Face CT done showed 7mm calculus within distal left submandibular duct Concern for ?hematoma vs mass. Was being planned for surgery per surgeons note Spoke with Dr Soto who reported that patient was planned for OR but called the day before and cancelled without giving reason. Currently maintaining airway but concern for possible airway compromise Keep NPO for now IV unasyn and steroid Spoke with ENT physician research and evaluation analyst Dr Rhoades who will evaluate. Will await recommendations (2) Seizure: History of heavy alcohol abuse Reports no drink since 06/27/19 last hospitalization. Negative alcohol level on admission Currently on keppra 750mg iv Neurologist recommendations noted Seizure precautions (3) Alcohol abuse: Got MVI in the ED Continue thiamine, folic acid Though denied recent alcohol intake, labs suggestive of alcohol abuse with hepatic dysfunction and thrombocytopenia. Counselled patient extensively about abstaining from alcohol Discussed available resources on discharge if interested (4) Vomiting: Currently resolved Antinausea medication as needed (5) Hypokalemia: (6) Hypophosphatemia: K 3.2 this morning, Hypophosphatemia has resolved Being repleted. Continue to monitor (7) Thrombocytopenia: Chronic, likely secondary to chronic alcohol use Monitor platelets (8) DVT prophylaxis: SCDs, ambulate Subjective Patient seen and examined. Reports worsening tongue swelling Reports pain is poorly controlled No difficulty breathing. Denied fevers, chills, nausea, vomiting. No seizure episode since admission Review of Systems Review of Systems: All systems reviewed and unremarkable except for mentioned above. Physical Exam Constitutional: well developed; no acute distress Altered speech due to tongue swelling Eyes: PERRL, conjunctivae normal, anicteric sclerae ENMT: Mouth: + tongue abnormality Tongue is swollen, dark. difficult to fully inspect due to swelling. No obvious lacerations Also has submandibular fullness Neck: Submandibular fullness and tenderness on left side of submandibular region Respiratory: normal respiratory effort, lungs clear to auscultation Cardiovascular: RRR, no murmur, no edema Heart Sounds: normal S1 and normal S2 Gastrointestinal (Abdomen): normal bowel sounds, soft, nontender, no hepatosplenomegaly Musculoskeletal: no cyanosis or clubbing, extremities motor strength 5/5 Neurologic: PERRL, EOMI, accommodation nl, no face palsy, no dysarthria Psychiatric: A+Ox3, euthymic affect Results & Data Vital Signs (Past 12 Hours) Vital Signs Temp Pulse Resp BP Pulse Ox 07/08/19 07:06 37.4 C 91 H 20 139/93 99 07/08/19 04:24 36.5 C 79 20 127/87 100 Laboratory Results Short CBC 07/07/19 07/08/19 Range/Units 16:24 06:10 WBC 3.45 L (4.8-10.8) K/uL Hgb 13.7 L 12.8 L (14.0-18.0) g/dL Hct 39.8 L 36.8 L (42-52) % Plt Count 63 L (130-400) K/uL BMP 07/07/19 07/08/19 15:54 06:10 Sodium 137 137 Potassium 3.2 L 3.2 L Chloride 106 103 Carbon Dioxide 23 20 L BUN 7 8 Creatinine 0.72 0.68 Glucose 73 70 Calcium 8.2 L 8.6 Liver Function 07/07/19 07/08/19 Range/Units 15:54 06:10 Total Bilirubin 1.3 H 1.7 H (0.2-1) mg/dl AST 44 H 36 (15-37) U/L ALT 30 25 (12-78) U/L Alkaline Phosphatase 82 78 (45-117) U/L Albumin 3.9 3.9 (3.4-5.0) gm/dl
[2019-07-08] MEDS ORDERED: methylPREDNISolone 40 MG in SYRINGE 0 ML IV SCH (12:00)
[2019-07-08] MEDS ORDERED: metroNIDAZOLE 500 MG/100 ML BAG IV SCH (12:00)
[2019-07-08] MEDS ORDERED: CEFEPIME 1,000 MG in SYRINGE 0 ML IV SCH (12:00)
[2019-07-08] MEDS ORDERED: methylPREDNISolone 100 MG in SYRINGE 0 ML IV SCH ×3 (12:00→18:00)
[2019-07-08] MEDS: AMPICILLIN/SULBACTAM SOD 1,500 MG in 0.9 % SODIUM CHLORIDE 100 ML IV SCH ×3 (12:23→23:50)
[2019-07-08] MEDS ORDERED: VANCOMYCIN HCL 1,750 MG in SODIUM CHLORIDE 0.9% 500 ML IV ONE (12:41)
[2019-07-08] MEDS ORDERED: VANCOMYCIN CONSULT ACTIVE PRN (12:41)
--- NOTE | 2019-07-08 13:23 | Critical Care Consultation ---
Date of Consultation July 08, 2019 Assessment & Plan (1) Abrasion of tongue: --Abrasion of the tongue with hematoma and possibility of abscess Patient bit his tongue while he had seizure for the first time on 07/06/2019 prior to being admitted to the hospital Swelling of the tongue has gradually worsened since he was in the hospital, he is having difficulty swallowing, there is no respiratory compromise for the time being but given the degree of tongue swelling we will monitor him in the ICU if there is any compromise in the respiration will do fiberoptic intubation and if need be emergent tracheostomy ENT saw and evaluated the patient on the floor. Bedside laryngoscopy was done by him --> as per him he thinks the patient has developed abscess now from the hematoma I recommend antibiotics with steroids We will give Unasyn which will have anaerobic coverage and as the patient has been in the hospital we will give vancomycin to cover for MRSA Follow-up septic work-up, procalcitonin: Negative, ESR: 3, CRP 2.16, follow blood cultures Keep patient n.p.o. Give IV fluids --Pancytopenia with thrombocytopenia Could be all sepsis Thrombocytopenia could be consumption plus sepsis on top secondary to etoh use Patient is sexually active and is homosexual, need to rule out HIV as a cause of pancytopenia as well--> consent for the test obtained from the patient follow-up HIV Gonococcal and RPR also ordered -- High anion gap metabolic acidosis Delta delta: Less than 1, metabolic acidosis and non-anion gap acidosis Follow-up lactic acid, patient denies any diarrhea, will order urine lites Monitor --Elevated bilirubin T bili 1.7 With direct bilirubin 0.3 Could be alcohol use Would monitor --Hypokalemia Already been replaced by the primary team on the floor --Secondary hypercoagulable state IPC's, no heparin given thrombocytopenia History of Present Illness Attending Physician: Yasmeen Laura MD History of Present Illness 23-year-old male with past medical history with past medical history of anxiety not taking any medications right now, alcohol use was brought into the hospital because of an episode of seizure witnessed in grocery store which he does not have any memory of. When he was brought to the ER his tongue was found to be swollen with a cut appreciated on the anterior lateral aspect left side. As per the patient he had small hematoma in May for which he was scheduled surger y by the patient's ENT but he had to cancel it for some personal reasons. Patient denies any other history of trauma to the tongue, no history of tongue piercing. Patient denies any fever or chills. Patient states that he does drink alcohol but his last drink was 06/27/2019. He never had any admissions related to his alcohol. He did not have any seizures related to alcohol. There is no family history of seizures. MICU was called today as there was worsening of the swelling of his tongue and new submandibular swelling. Patient has difficulty swallowing. But denies any shortness of breath, no chest pain, no nausea or vomiting. Patient is still able to swallow liquids. ENT evaluated the patient at bedside and did lower endoscopy which showed significant swelling of the tongue. The reason for ICU upgrade is impending ventilatory failure. Social history: Alcohol use, denies any illicit drug use, sexual orientation: Male Patient is sexually active. History of HPV in the past. No other STDs that he can recall. He was checked for HIV 6 months ago which was negative. 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: No Beliefs That Will Affect Care: None marital status: Single Current Living Situation: Alone current occupational status: 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 Feels Safe at Home: Yes Smoking Status: Never smoker Do You Dip or Chew Tobacco: No ; Second Hand Exposure: No ; Hx Alcohol Use: Yes Alcohol type: other Alcohol Intake Frequency Comment: History of heavy alcohol use; last drink 06/27 Hx Substance Use: No Review of Systems Review of Systems: All systems reviewed & are unremarkable except as noted in HPI & below Physical Exam Physical Exam: Constitutional: No acute distress, slurred speech likely secondary to swollen tongue HEENT: EOMI, PERRLA, bluish discoloration of the tongue which is swollen, there is a cut appreciated on the left side anterior lateral aspect of the tongue, Mallampati 4, no stridor, submandibular swelling which is tender, no fluctuance appreciated Respiratory system: Good air entry bilaterally, no wheeze, no rhonchi, no crackles CVS: S1-S2 positive, no murmurs or gallops Abdomen: Soft, nontender, nondistended, positive bowel sounds x4 Extremities: +2 pulses bilaterally radialis/ dorsalis pedis, no edema, no cyanosis Neuro: Awake alert oriented x3 Psych: Normal mood and affect G/U: No Sales Skin: no rashes, warm and dry Lymphatic: + cervical lymphadenopathy Results & Data Vital Signs (Past 12 Hours) Vital Signs Temp Pulse Resp BP Pulse Ox 07/08/19 11:48 37.4 C 90 19 142/101 H 98 07/08/19 07:06 37.4 C 91 H 20 139/93 99 07/08/19 04:24 36.5 C 79 20 127/87 100 07/08/19 06:10 07/08/19 06:10 Diagnostic Findings EKG: Normal sinus rhythm normal axis, PVCs appreciated, no ST-T wave changes appreciated Chest x-ray from the time of admission reviewed personally: Good inspiratory effort portable film, no clear infiltrate appreciated, or if any costophrenic angles are clean. Coding Level of Care Code New Pt Critical Care 1st 30-74 mins Patient Type New Diagnoses Abrasion of tongue S00.512A Time Spent (min) 60
[2019-07-08 13:46] LABS: Procalcitonin < 0.05 ng/ml (0-0.5)
[2019-07-08] MEDS: ONDANSETRON INJ 2 MG/ML 2 ML VIAL IV PRN ×2 (14:41→21:15)
[2019-07-08 14:46] LABS: Magnesium 1.9 mg/dl (1.8-2.4); Phosphorus 3.4 mg/dl (2.5-4.9)
[2019-07-08] MEDS: D5W AND NSS 1,000 ML IV SCH (14:46)
--- NOTE | 2019-07-08 16:07 | Pharmacy Report ---
Pharmacy Abx Initial Consult - Date of Service July 08, 2019 - Pharmacy Dosing Scope Date of Consult: 07/08/19 Consultation requested by: Dr. Laura Pharmacy is consulted to initiate Vancomycin IV dosing therapy, order appropriate labs and adjust drug dose/frequency. - Subjective The patient is a 23 year old M admitted on 07/06/19 20:45. - Objective Height: 6 ft 1 in Weight: 73.8 kg (BMI 21.5) Vital Signs (Past 12hrs): Vital Signs Temp Pulse Pulse Resp BP BP Pulse Ox 07/08/19 13:00 77 13 116/87 100 07/08/19 12:47 88 17 162/95 H 100 07/08/19 11:48 37.4 C 90 19 142/101 H 98 07/08/19 07:06 37.4 C 91 H 20 139/93 99 07/08/19 04:24 36.5 C 79 20 127/87 100 Lab Results (24hrs): Laboratory Tests (24 Hours) 07/08/19 07/08/19 07/08/19 13:02 13:02 13:02 WBC ESR 3 Creatinine Est Cr Clr Drug Dosing C-Reactive Protein 2.16 H Procalcitonin < 0.05 07/08/19 07/08/19 06:10 06:10 WBC 3.45 L ESR Creatinine 0.68 Est Cr Clr Drug Dosing 174.9 C-Reactive Protein Procalcitonin - Assessment & Plan Assessment 23 year old M admitted for evaluation of possible seizure. History of heavy alcohol use, most recent to ER 06/27 for alcohol intoxication. Patient has had persistent vomiting for last couple days. Today patient was at grocery store, felt lightheaded and dizzy and next thing he woke up in ambulance. He did bite his tongue and has had an ongoing tongue hematoma. Plan Vancomycin being used empirically Vancomycin IV * Estimated PK Parameters: Vd 0.74 L/kg, Gage 0.104 hr-1, t1/2 6.7 hr * Loading dose: 1750 mg (24 mg/kg) * Maintenance dose: 1000 mg IV (13.5 mg/kg) every 8 hours * Due to empiric indication will not order trough level unless medication is continued. Pharmacy will continue to follow and will adjust dose/frequency as necessary. Thank you.
[2019-07-08 16:08] LABS: Appearance Urine Clear (Clear); Bilirubin Urine Negative (Negative); Blood Urine Negative (Negative); Color Urine Yellow; Glucose Urine UA Negative (Negative); Leukocyte Esterase Urine Negative (Negative); Nitrite Urine Negative (Negative); Protein Urine Negative (Negative); Specific Gravity Urine 1.017 (1.000-1.030); Urobilinogen Urine Negative (Negative)
[2019-07-08 16:16] LABS: Ketones Urine 3+ (Negative)
[2019-07-08 16:24] LABS: Potassium Random Urine 16.4 mmol/L
--- NOTE | 2019-07-08 16:43 | ENT Consultation ---
Date of Consultation July 08, 2019 Assessment & Plan (1) Abscess of tongue: I saw the patient in noon and I am rechecking him now at 5 PM with improvement after the first dose of Unasyn and IV steroids were he is able to open his mouth widely and slightly protrude his tongue with less swelling and less pain. He will be monitored in the ICU overnight but so far the patient is not entire need of a tracheostomy. Cultures and various blood tests have been performed to further evaluate the tongue abscess. This case was with the discussed with Dr. Enrique Soto who will resume care of the patient tomorrow afternoon. History of Present Illness Reason for Consultation: Tongue abscess Requesting Physician: Yasmeen Laura MD Attending Physician: Yasmeen Laura MD History of Present Illness 23-year-old patient of Dr. Enrique Soto follow for the last 6 weeks because of tongue swelling possible tongue hematoma late May was scheduled for incision and drainage this past Tuesday however the patient canceled the morning of surgery and Dr. Soto is away however I was able to review the case with him by cell phone. Evidently this was some kind of oral trauma 6 weeks ago causing the tongue hematoma he did have first episode of seizure on July 06 and was admitted having bit the left side of his tongue however the tongue continued to swell and became black in color. Dr. Soto was out of town and Dr. Glass was uncomfortable with the case therefore I was called in. Allergies Allergy/AdvReac Type Severity Reaction Status Date / Time No Known Allergies Allergy Verified 07/06/19 18:44 Home Medications Home Medications Medication Instructions Recorded Confirmed Type No Known Home Medications 05/30/19 07/06/19 History Patient History Medical History Alcohol abuse (Chronic) Post traumatic stress disorder (Chronic) Hematoma (Inactive) TONGUE Thrombocytopenia (Inactive) PT UNAWARE Surgical History S/P cholecystectomy (Chronic) Hx of unilateral orchiectomy (Chronic) Social History Preferred Language: Cypriot Communication Ability: Effective Visual Impairment: No Limitations 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 Required: No Beliefs That Will Affect Care: None marital status: Single Current Living Situation: Alone 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 occupational status: 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 Feels Safe at Home: Yes Smoking Status: Never smoker Do You Dip or Chew Tobacco: No ; Second Hand Exposure: No ; Hx Alcohol Use: Yes Alcohol type: other Alcohol Intake Frequency Comment: H istory of heavy alcohol use; last drink 06/27 Hx Substance Use: No Physical Exam Constitutional: WD/WN, vitals as above + language barrier (Due to swollen tongue) Eyes: PERRL, conjunctivae normal, anicteric sclerae ENMT: Mouth: + tongue abnormality (Significant swelling of the right half of the tongue with dark bluish coloration and hematoma underneath the tongue with also an odor that smells like anaerobic infection consistent with an abscess, palpation revealed no obvious tumor or distinct abscess at this point other than diffuse swelling of the right half of the tongue spreading across the midline to the left side) I did fiberoptic laryngoscopy through the right nares noting significant swelling of the tongue where the tongue was pushed back to the epigl ottis however the epiglottis was sharp and the vocal cords were mobile and the patient did have an airway the size of an 8 endotracheal tube and would need careful monitoring for possible emergency tracheostomy under local anesthesia Neck: Significant swelling of both submandibular areas with no distinct abscess palpated Respiratory: normal respiratory effort, lungs clear to auscultation Cardiovascular: RRR, no murmur, no edema Results & Data Vital Signs (Past 12 Hours) Vital Signs Temp Pulse Pulse Resp BP BP Pulse Ox 07/08/19 13:00 77 13 116/87 100 07/08/19 12:47 88 17 162/95 H 100 07/08/19 11:48 37.4 C 90 19 142/101 H 98 07/08/19 07:06 37.4 C 91 H 20 139/93 99
[2019-07-08] MEDS ORDERED: MoRPHine SULFATE 2 MG/ML CARP IV PRN (17:40)
[2019-07-08] MEDS: HYDROmorphone INJ 0.5 MG/0.5 ML SYR IV PRN ×2 (20:03→23:51)
[2019-07-08] MEDS: VANCOMYCIN HCL 1,000 MG in SODIUM CHLORIDE 0.9% 250 ML IV SCH (21:15)
[2019-07-08] MEDS ORDERED: GABAPENTIN 250 MG/5 ML 470 ML BTL PO SCH (22:00)
[2019-07-08] MEDS ORDERED: GABAPENTIN 600 MG TAB PO SCH (22:00)
[2019-07-08] MEDS: methylPREDNISolone 40 MG in SYRINGE 0 ML IV SCH (23:04)
[2019-07-09] MEDS: HYDROmorphone INJ 0.5 MG/0.5 ML SYR IV PRN ×5 (04:04→22:44)
[2019-07-09] MEDS: VANCOMYCIN HCL 1,000 MG in SODIUM CHLORIDE 0.9% 250 ML IV SCH (04:04)
[2019-07-09] MEDS: D5W AND NSS 1,000 ML IV SCH ×2 (04:04→15:23)
[2019-07-09 04:25] LABS: Hematocrit (blood only) 37.7 % (42-52); Hemoglobin 13.6 g/dL (14.0-18.0); Mean Corpuscular Hemoglobin 33.8 pg (25-34); Mean Corpuscular Hgb Conc 36.1 g/dL (32-36); Mean Corpuscular Volume 93.8 fL (80-100); Mean Platelet Volume 9.9 fL (7.4-10.4); Platelet Count 110 K/uL (130-400); RDW Coefficient of Variation 13.4 % (11.5-14.5); RDW Standard Deviation 45.8 fL (36.4-46.3); Red Blood Count 4.02 M/uL (4.7-6.1); White Blood Count 4.76 K/uL (4.8-10.8)
[2019-07-09 04:49] LABS: BUN Creatinine Ratio 10.7 (10-20); Blood Urea Nitrogen 7 mg/dl (7-18); Calcium 8.9 mg/dl (8.5-10.1); Carbon Dioxide 23 mmol/L (21-32); Chloride 103 mmol/L (98-107); Creatinine Clr Calc Pharmacy 177.5 ml/min; Est GFR (African American) > 150.0; Est GFR (Non-African American) 134.5; Glucose 118 mg/dl (70-99); Magnesium 2.1 mg/dl (1.8-2.4); Phosphorus 3.8 mg/dl (2.5-4.9); Sodium 137 mmol/L (136-145)
[2019-07-09 05:19] LABS: Immature Granulocytes # (auto) 0.02 K/uL (0.00-0.02); Immature Granulocytes % (auto) 0.4 %; Lymphocytes # (auto) 0.29 K/uL (1.2-3.4); Lymphocytes % (auto) 6.1 %; Monocytes # (auto) 0.15 K/uL (0.11-0.59); Monocytes % (auto) 3.2 %; Neutrophils % (auto) 90.3 %
[2019-07-09] MEDS: AMPICILLIN/SULBACTAM SOD 1,500 MG in 0.9 % SODIUM CHLORIDE 100 ML IV SCH ×4 (06:06→22:44)
[2019-07-09] MEDS: methylPREDNISolone 40 MG in SYRINGE 0 ML IV SCH ×3 (07:57→22:44)
[2019-07-09] MEDS: THIAMINE HCL 100 MG in SYRINGE 9 ML IV SCH (07:57)
[2019-07-09] MEDS: MULTIVITAMIN TAB PO SCH (07:58)
[2019-07-09] MEDS: levETIRAcetam 750 MG in DEXTROSE 5% 100 ML IV SCH ×2 (07:58→19:45)
--- NOTE | 2019-07-09 08:26 | Critical Care Progress Note ---
Date of Service July 09, 2019 Assessment & Plan (1) Admitted to intensive care unit: Neuro Loss of consciousness episode - alcohol withdrawal seizure vs. chemically induced seizure from benzo withdrawal. No seizure activity noted overnight; currently on Keppra 750mg q12 with seizure precautions, Pain - discontinued Toradol secondary to thrombocytopenia and will continue with Dilaudid 0.5mg IV PRN for pain Will need PA reporting form for DMV - loss of driving privileges, which patient is aware of to prevent LOC while driving which could result in major injury and loss of life. Cardiac/Vascular Normotensive with regular rate Pulm: Saturating well on room air No signs of impending loss of airway from hematomas GI: Prophylaxis: Pepcid 20mg IV BID as NPO and on steroids Diet: NPO Continue with vitamin supplementation with Thiamine 100mg qAM; Folic Acid 1mg qAM; Multivitamin tab Renal/Lytes IVF: D5W NSS @80ml/hr Electrolytes WNL Creatinine 0.67 WNL Sales - no Endo: Not diabetic No thyroid disease Heme: No leukocytosis Anemia with Hgb 13.6 and stable Platelets improved to 110 from 63 - thrombocytopenia, most likely with contributing use of platelets to hematomas ID: Abx - Unasyn 1,500mg q6hr; discontinued Vanc Methylprednisolone to decrease upper airway swelling HIV negative RPR pending Lines: DVT ppx: Started on Lovenox 40mg qday Resuscitation status: Full Code. Stable for downgrade from ICU (2) Abscess of tongue: (3) Loss of consciousness: (4) DVT prophylaxis: Supervising Physician Co-Signing Physician Notes Dr. Wang was resident physician during care of patient. I separately evaluated patient for kumar portions of the history and the exam. I was present during the critical portion of medical decision making, and I discussed the case with the resident. I generally agree with the findings and plan. Patient was discussed in multidisciplinary rounds. Patient feels subjectively better able to open his mouth further, able to swallow his secretions, admits to voice change but this is mildly better. He still having pain in the tongue. He admits to being anxious, he does not remember why he has bruises about his body. He admits to abstaining from alcohol consumption only last 2 weeks, he reports he would drink socially prior to that which at maximum would be 1 to 2 glasses of wine daily. He does not have a primary care provider, I have advised him that he is not allowed to drive until cleared by a neurologist. He did not report that anyone had told him that up to this point. He had a transient loss of consciousness approximately 5 days ago he was entering [facility] and then woke up in an ambulance. He admits that the tongue lesion had started prior to this. He also reports that he had vomited blood, as we have the patient on steroids and n.p.o. we will add a Pepcid to his medication regimen, I have discontinued the vancomycin we will continue with Unasyn and steroids. He will remain in the ICU until seen by ENT, however I anticipate he will likely be downgraded bowl as he is having improvement in his symptomatology and handling his secretions appropriately. He will need referral to a primary care doctor as well as neurology he reports that his insurance is [employer] and prefers to follow-up with the [facility] physician group. As the patient will require follow-up for this transient loss of consciousness as well as evaluation for his driving privileges we will consult [facility] neurology per the patient's request. Patient can have chemical prophylaxis however if he is going to ambulate at least 3 times a day he could have SCDs and avoid the chemical prophylaxis given the pre-existing thrombocytopenia. I believe the thrombocytopenia is multifactorial I anticipate there is an aspect of nutritional from alcohol consumption as well as consumptive from recent trauma as he has multiple ecchymoses over his left flank. Update: 1300 patient's was seen by Dr. CASTELLANOS significant improvement stable for downgrade out of ICU. Subjective Mr. Lozano notes he continues to have tongue pain and swelling. He denies chest pain, shortness of breath, nausea, vomiting, diarrhea. He notes feeling anxious from current condition and has had trouble sleeping. Review of Systems Review of Systems: All systems reviewed & are unremarkable except as noted in HPI & below Constitutional: no fever and no chills Eyes: no eye pain and no photophobia Ear, Nose, Mouth, Throat: no hearing loss and no epistaxis Respiratory: no cough and no dyspnea Cardiovascular: no chest pain and no chest pain at rest Gastrointestinal: no abdominal pain, no nausea and no vomiting Genitourinary: no dysuria and no hematuria Physical Exam Constitutional: WD/WN, vitals as above cooperative and comfortable Eyes: PERRL, conjunctivae normal, anicteric sclerae ENMT: Ears: no hearing impairment Nose: + facial edema (Submandibular swelling bilaterally) and + facial tenderness; no external nose abnormality and no epistaxis Mouth: + tongue abnormality; no trismus and no drooling Neck: trachea midline inferior neck slight ecchymosis Respiratory: normal respiratory effort, lungs clear to auscultation Cardiovascular: RRR, no murmur, no edema Gastrointestinal (Abdomen): Percussion/Palpation: abdomen soft; abdomen nontender, no guarding and abdomen not rigid Musculoskeletal: left lower back hematoma with left lumbar ecchymosis Skin: no rashes, warm and dry Neurologic: moves all extremities and awake Psychiatric: Orientation: alert and oriented x 3 Affect: + anxious affect Results & Data Vital Signs (Past 12 Hours) Vital Signs Temp Pulse Resp BP Pulse Ox 07/09/19 08:00 64 07/09/19 06:00 64 14 127/69 98 07/09/19 05:00 67 14 131/81 97 07/09/19 04:00 36.5 C 113 H 25 H 149/90 H 93 07/09/19 03:00 72 12 120/90 97 07/09/19 02:00 89 12 130/93 99 07/09/19 01:00 85 12 141/96 H 99 07/09/19 00:00 36.8 C 88 13 144/96 H 99 07/08/19 23:00 99 H 21 151/92 H 99 07/08/19 22:00 92 H 13 138/108 H 97 07/08/19 21:00 91 H 13 132/101 H 98 Laboratory Results Laboratory Results - last 24 hr 07/08/19 07/08/19 07/08/19 06:10 12:56 13:02 WBC RBC Hgb Hct MCV MCH MCHC RDW Std Deviation RDW Coeff of Phill Plt Count MPV Immature Gran % (Auto) Neut % (Auto) Lymph % (Auto) Jay % (Auto) Eos % (Auto) Baso % (Auto) Immature Gran # (Auto) Neut # (Auto) Lymph # (Auto) Jay # (Auto) Eos # (Auto) Baso # (Auto) ESR 3 Sodium Potassium Chloride Carbon Dioxide Anion Gap BUN Creatinine Est Cr Clr Drug Dosing Est GFR ( Amer) Est GFR (Non-Af Amer) BUN/Creatinine Ratio Glucose Lactate Calcium Phosphorus 3.4 Magnesium 1.9 C-Reactive Protein Beta-Hydroxybutyric Acd Procalcitonin Urine Color Urine Appearance Urine pH Ur Specific Troy Urine Protein Urine Glucose (UA) Urine Ketones Urine Blood Urine Nitrite Urine Bilirubin Urine Urobilinogen Ur Leukocyte Esterase Ur Random Creatinine Ur Random Sodium Ur Random Potassium Ur Random Chloride Ur Random Uric Acid Nasal Screen MRSA (PCR) Negative RPR HIV 1&2 Ab/P24 Ag 4thGn N.gonorrhoeae RNA 07/08/19 07/08/19 07/08/19 13:02 13:02 13:15 WBC RBC Hgb Hct MCV MCH MCHC RDW Std Deviation RDW Coeff of Phill Plt Count MPV Immature Gran % (Auto) Neut % (Auto) Lymph % (Auto) Jay % (Auto) Eos % (Auto) Baso % (Auto) Immature Gran # (Auto) Neut # (Auto) Lymph # (Auto) Jay # (Auto) Eos # (Auto) Baso # (Auto) ESR Sodium Potassium Chloride Carbon Dioxide Anion Gap BUN Creatinine Est Cr Clr Drug Dosing Est GFR ( Amer) Est GFR (Non-Af Amer) BUN/Creatinine Ratio Glucose Lactate Calcium Phosphorus Magnesium C-Reactive Protein 2.16 H Beta-Hydroxybutyric Acd Procalcitonin < 0.05 Urine Color Urine Appearance Urine pH Ur Specific Troy Urine Protein Urine Glucose (UA) Urine Ketones Urine Blood Urine Nitrite Urine Bilirubin Urine Urobilinogen Ur Leukocyte Esterase Ur Random Creatinine Ur Random Sodium Ur Random Potassium Ur Random Chloride Ur Random Uric Acid Nasal Screen MRSA (PCR) RPR Pending HIV 1&2 Ab/P24 Ag 4thGn N.gonorrhoeae RNA Pending 07/08/19 07/08/19 07/08/19 13:56 13:59 13:59 WBC RBC Hgb Hct MCV MCH MCHC RDW Std Deviation RDW Coeff of Phill Plt Count MPV Immature Gran % (Auto) Neut % (Auto) Lymph % (Auto) Jay % (Auto) Eos % (Auto) Baso % (Auto) Immature Gran # (Auto) Neut # (Auto) Lymph # (Auto) Jay # (Auto) Eos # (Auto) Baso # (Auto) ESR Sodium Potassium Chloride Carbon Dioxide Anion Gap BUN Creatinine Est Cr Clr Drug Dosing Est GFR ( Amer) Est GFR (Non-Af Amer) BUN/Creatinine Ratio Glucose Lactate 0.6 Calcium Phosphorus Magnesium C-Reactive Protein Beta-Hydroxybutyric Acd 39.26 H Procalcitonin Urine Color Urine Appearance Urine pH Ur Specific Troy Urine Protein Urine Glucose (UA) Urine Ketones Urine Blood Urine Nitrite Urine Bilirubin Urine Urobilinogen Ur Leukocyte Esterase Ur Random Creatinine Ur Random Sodium Ur Random Potassium Ur Random Chloride Ur Random Uric Acid Nasal Screen MRSA (PCR) RPR HIV 1&2 Ab/P24 Ag 4thGn Neg N.gonorrhoeae RNA 07/08/19 07/08/19 07/08/19 Unknown Unknown Unknown WBC RBC Hgb Hct MCV MCH MCHC RDW Std Deviation RDW Coeff of Phill Plt Count MPV Immature Gran % (Auto) Neut % (Auto) Lymph % (Auto) Jay % (Auto) Eos % (Auto) Baso % (Auto) Immature Gran # (Auto) Neut # (Auto) Lymph # (Auto) Jay # (Auto) Eos # (Auto) Baso # (Auto) ESR Sodium Potassium Chloride Carbon Dioxide Anion Gap BUN Creatinine Est Cr Clr Drug Dosing Est GFR ( Amer) Est GFR (Non-Af Amer) BUN/Creatinine Ratio Glucose Lactate Calcium Phosphorus Magnesium C-Reactive Protein Beta-Hydroxybutyric Acd Procalcitonin Urine Color Urine Appearance Urine pH Ur Specific Troy Urine Protein Urine Glucose (UA) Urine Ketones Urine Blood Urine Nitrite Urine Bilirubin Urine Urobilinogen Ur Leukocyte Esterase Ur Random Creatinine 42.8 Ur Random Sodium Ur Random Potassium Cancelled Ur Random Chloride Cancelled Ur Random Uric Acid Nasal Screen MRSA (PCR) RPR HIV 1&2 Ab/P24 Ag 4thGn N.gonorrhoeae RNA 07/08/19 07/08/19 07/08/19 Unknown Unknown Unknown WBC RBC Hgb Hct MCV MCH MCHC RDW Std Deviation RDW Coeff of Phill Plt Count MPV Immature Gran % (Auto) Neut % (Auto) Lymph % (Auto) Jay % (Auto) Eos % (Auto) Baso % (Auto) Immature Gran # (Auto) Neut # (Auto) Lymph # (Auto) Jay # (Auto) Eos # (Auto) Baso # (Auto) ESR Sodium Potassium Chloride Carbon Dioxide Anion Gap BUN Creatinine Est Cr Clr Drug Dosing Est GFR ( Amer) Est GFR (Non-Af Amer) BUN/Creatinine Ratio Glucose Lactate Calcium Phosphorus Magnesium C-Reactive Protein Beta-Hydroxybutyric Acd Procalcitonin Urine Color Yellow Urine Appearance Clear Urine pH 6.0 Ur Specific Troy 1.017 Urine Protein Negative Urine Glucose (UA) Negative Urine Ketones 3+ H Urine Blood Negative Urine Nitrite Negative Urine Bilirubin Negative Urine Urobilinogen Negative Ur Leukocyte Esterase Negative Ur Random Creatinine Ur Random Sodium 133 Ur Random Potassium 16.4 Ur Random Chloride 135 Ur Random Uric Acid 12.3 Nasal Screen MRSA (PCR) RPR HIV 1&2 Ab/P24 Ag 4thGn N.gonorrhoeae RNA 07/09/19 07/09/19 07/09/19 04:09 04:09 04:09 WBC 4.76 L RBC 4.02 L Hgb 13.6 L Hct 37.7 L MCV 93.8 MCH 33.8 MCHC 36.1 H RDW Std Deviation 45.8 RDW Coeff of Phill 13.4 Plt Count 110 L D MPV 9.9 Immature Gran % (Auto) 0.4 Neut % (Auto) 90.3 Lymph % (Auto) 6.1 Jay % (Auto) 3.2 Eos % (Auto) 0.0 Baso % (Auto) 0.0 Immature Gran # (Auto) 0.02 Neut # (Auto) 4.30 Lymph # (Auto) 0.29 L Jay # (Auto) 0.15 Eos # (Auto) 0.00 Baso # (Auto) 0.00 ESR Sodium 137 Potassium 4.0 D Chloride 103 Carbon Dioxide 23 Anion Gap 11.0 BUN 7 Creatinine 0.67 Est Cr Clr Drug Dosing 177.5 Est GFR ( Amer) > 150.0 Est GFR (Non-Af Amer) 134.5 BUN/Creatinine Ratio 10.7 Glucose 118 H Lactate Calcium 8.9 Phosphorus 3.8 Magnesium 2.1 C-Reactive Protein Beta-Hydroxybutyric Acd Procalcitonin < 0.05 Urine Color Urine Appearance Urine pH Ur Specific Troy Urine Protein Urine Glucose (UA) Urine Ketones Urine Blood Urine Nitrite Urine Bilirubin Urine Urobilinogen Ur Leukocyte Esterase Ur Random Creatinine Ur Random Sodium Ur Random Potassium Ur Random Chloride Ur Random Uric Acid Nasal Screen MRSA (PCR) RPR HIV 1&2 Ab/P24 Ag 4thGn N.gonorrhoeae RNA Medications Administered Hydromorphone HCl (Dilaudid) 0.5 mg IV Q4H PRN PRN Reason: Pain Stop: 07/22/19 19:44 Last Admin: 07/09/19 07:58 Dose: 0.5 mg Documented by: [id number] Admin: 07/09/19 04:04 Dose: 0.5 mg Documented by: [id number] Admin: 07/08/19 23:51 Dose: 0.5 mg Documented by: [id number] Admin: 07/08/19 20:03 Dose: 0.5 mg Documented by: [id number] Levetiracetam 750 mg/ Dextrose 107.5 mls @ 420 mls/hr IV Q12H [facility] Stop: 08/06/19 20:59 Last Infusion: 07/09/19 08:18 Dose: 0 mls/hr Documented by: [id number] Admin: 07/09/19 07:58 Dose: 420 mls/hr Documented by: [id number] Infusion: 07/08/19 21:30 Dose: 0 mls/hr Documented by: [id number] Admin: 07/08/19 21:14 Dose: 420 mls/hr Documented by: [id number] Infusion: 07/08/19 08:44 Dose: 0 mls/hr Documented by: [id number] Admin: 07/08/19 08:25 Dose: 420 mls/hr Documented by: [id number] Infusion: 07/07/19 20:57 Dose: 0 mls/hr Documented by: [id number] Admin: 07/07/19 20:19 Dose: 420 mls/hr Documented by: [id number] Thiamine HCl 100 mg/ Syringe 10 mls @ 2 mls/min IV QAM [facility] Stop: 07/13/19 08:59 Last Admin: 07/09/19 07:57 Dose: 2 mls/min Documented by: [id number] Admin: 07/08/19 08:21 Dose: 2 mls/min Documented by: [id number] Ampicillin Sodium/Sulbactam Sodium 1,500 mg/ Sodium Chloride 104 mls @ 200 mls/hr IV Q6H SULMA; Protocol Stop: 07/18/19 11:59 Last Infusion: 07/09/19 07:33 Dose: 0 mls/hr Documented by: [id number] Admin: 07/09/19 06:06 Dose: 200 mls/hr Documented by: [id number] Infusion: 07/09/19 00:35 Dose: 0 mls/hr Documented by: [id number] Admin: 07/08/19 23:50 Dose: 200 mls/hr Documented by: [id number] Infusion: 07/08/19 18:49 Dose: 0 mls/hr Documented by: [id number] Admin: 07/08/19 18:08 Dose: 200 mls/hr Documented by: [id number] Infusion: 07/08/19 13:07 Dose: 0 mls/hr Documented by: [id number] Admin: 07/08/19 12:23 Dose: 200 mls/hr Documented by: [id number] Dextrose/Sodium Chloride (D5w And Nss) 1,000 mls @ 80 mls/hr IV .[id number] [facility] Stop: 08/07/19 14:14 Last Admin: 07/09/19 04:04 Dose: 80 mls/hr Documented by: [id number] Infusion: 07/09/19 03:16 Dose: 80 mls/hr Documented by: [id number] Admin: 07/08/19 14:46 Dose: 80 mls/hr Documented by: [id number] Methylprednisolone 40 mg/ (Syringe) 0.64 mls @ 1.5 mls/min IV Q8H [facility]ULMA Stop: 08/07/19 22:59 Last Admin: 07/09/19 07:57 Dose: 1.5 mls/min Documented by: [id number] Admin: 07/08/19 23:04 Dose: 1.5 mls/min Documented by: [id number] Multivitamins (Multivitamin Tab) 1 tab PO QAM [facility] Stop: 08/06/19 08:59 Last Admin: 07/09/19 07:58 Dose: Not Given Documented by: [id number] Admin: 07/08/19 08:21 Dose: Not Given Documented by: [id number] Admin: 07/07/19 08:32 Dose: 1 tab Documented by: [id number] Ondansetron HCl (Zofran) 4 mg IV Q6H PRN PRN Reason: Nausea Stop: 08/05/19 21:49 Last Admin: 07/08/19 21:15 Dose: 4 mg Documented by: [id number] Admin: 07/08/19 14:41 Dose: 4 mg Documented by: [id number] PG Care Time/CCT Total # of Minutes Spent Total Time Spent with Patient: Total time spent is greater than 50% in coordination of care (as documented) at patient's floor/unit and/or counseling patient: Resident Activity Tracking Resident Involvement: Resident Care Provided Care Provided: Adult Hospital Medicine (ICU)
[2019-07-09] MEDS: FAMOTIDINE 20 MG in SYRINGE 3 ML IV SCH ×2 (10:16→19:46)
[2019-07-09] MEDS: ENOXAPARIN INJ 40 MG/0.4 ML SYR SQ SCH (10:16)
[2019-07-09] MEDS: FOLIC ACID 1 MG in SYRINGE 9.8 ML IV SCH (10:17)
--- NOTE | 2019-07-09 13:59 | Neurology Progress Note ---
Date of Service July 09, 2019 Assessment & Plan (1) Seizure: 1. continue Keppra 750 mg q 12 hours for now 2. continue thiamine 1 g daily 3. continue folic acid 1 mg daily 4. will schedule out patient EEG to further evaluate for seizure focus 5. no current signs of EtOH withdrawal 6. EtOH cessation - recommended 7. denies tobacco abuse 8. follow with ENT for possible resection of tongue lesion follow up with neurology in 4-6 weeks Vicki TOLEDO schedule EEG prior to appointment as outpatient. Supervising Physician Co-Signing Physician Notes Patient was seen and examined. Sitting up in bed. family at bedside. Reports feeling much better. Speech is improved. Tongue swelling has improved. Discussed plan to continue Keppra 750 mg BID. Avoid alcohol. Routine EEG as outpatient. Will arrange follow up as outpatient. Please call with any further questions or concerns. Drew Dumont is a 23 year old male who presented with a possible seizure. He admits to being a very heavy alcohol abuser. He had a ED visit 06/27 for alcohol intoxication with alcohol level of over 400. He states he stopped during for about 6 weeks but has been sick with N/V. He describes emesis is bilious in nature. he had not eaten or slept prior to the event. He was at the [employer] shopping and started feeling lightheaded and dizzy. The next thing he remembers in being in the ambulance. Bystanders were concerned for possible seizure. He did bite his tongue but no loss of bowel or bladder function. He had some ongoing tongue swelling but it was much worse after the event. He is adamant that he has not had any alcohol since 06/27 and no seizures in the past. denies current CP, SOB, abdominal pain, one sided weakness, numbness tingling bowel or bladder symptoms, vision changes, current nausea of vomiting. Physical Exam Physical Exam: Physical Exam: Constitutional: appearance nourished, healthy and normal Ears, Nose, Mouth and Throat: mucous membranes moist, tongue moderate swell and laceration Cardiovascular: normal S-1 and S-2 and regular rate and rhythm Respiratory: clear to auscultation (CTA) and no rales, ronchi or wheeze Musculoskeletal: no peripheral edema and good distal pulses Skin: no stigmata of neurocutaneous disease noted and normal and intact Eyes: extraocular muscles intact (EOMI) and pupils equal, round and reactive to light (PERRL) NEUROLOGIC EXAMINATION: Mental status: Alert and interactive Oriented to full date and location Oriented to person Speech fluent with no evidence of aphasia Cranial Nerves smile eye brow raise symmetric Reflexes: Deep tendon reflexes were symmetrical and graded 2/5. down going toes Sensory: no sensory deficits to light or cool touch Coordination: finger to nose no bipass, tremor Gait/Stance: Posture normal sitting bedside. Motor: Negative for pronator drift of out stretched arms with eyes closed. Strength: biceps triceps hand virology teacher 5/5 bilaterally, hip flex 5/5 Results & Data Vital Signs (Past 12 Hours) Vital Signs Temp Pulse Pulse Resp BP BP Pulse Ox 07/09/19 08:00 36.8 C 64 94 H 20 129/93 99 07/09/19 06:00 64 14 127/69 98 07/09/19 05:00 67 14 131/81 97 07/09/19 04:00 36.5 C 113 H 25 H 149/90 H 93 07/09/19 03:00 72 12 120/90 97 07/09/19 02:00 89 12 130/93 99 Laboratory Results Abnormal lab results 07/08/19 07/08/19 07/09/19 Range/Units 13:59 Unknown 04:09 WBC 4.76 L (4.8-10.8) K/uL RBC 4.02 L (4.7-6.1) M/uL Hgb 13.6 L (14.0-18.0) g/dL Hct 37.7 L (42-52) % MCHC 36.1 H (32-36) g/dL Plt Count 110 L D (130-400) K/uL Lymph # (Auto) 0.29 L (1.2-3.4) K/uL Glucose (70-99) mg/dl POC Glucose (70-99) Beta-Hydroxybutyric Acd 39.26 H (0.2-2.81) mg/dl Urine Ketones 3+ H (Negative) 07/09/19 07/09/19 Range/Units 04:09 10:59 WBC (4.8-10.8) K/uL RBC (4.7-6.1) M/uL Hgb (14.0-18.0) g/dL Hct (42-52) % MCHC (32-36) g/dL Plt Count (130-400) K/uL Lymph # (Auto) (1.2-3.4) K/uL Glucose 118 H (70-99) mg/dl POC Glucose 125 H (70-99) Beta-Hydroxybutyric Acd (0.2-2.81) mg/dl Urine Ketones (Negative) Diagnostic Findings MRI brain-No gross abnormality identified on the large [id number] chemistry intern localizer images. There is no restricted diffusion to suggest acute or subacute infarction. Midline structures including the corpus callosum, brainstem, optic chiasm, pituitary and pineal glands appear unremarkable on the sagittal T1 series. No cerebellar tonsillar herniation. Imaged cervical spine appears unremarkable. There is no acute intracranial hemorrhage, midline shift, abnormal extra-axial collection, hydrocephalus or intracranial mass. There are no significant T2/FLAIR signal abnormalities of the brain parenchyma identified. No acute seizure focus, cortical dysplasia, galeana matter heterotopia or mesial temporal sclerosis identified. No abnormal intra-axial or extra-axial enhancement.The major flow voids at the level of the skull base appear patent. Mastoid air cells are clear. Mucosal thickening of the left nasal turbinates and bilateral ethmoid air cells. Left prashant bullosa. The skull, soft tissues and orbits are unremarkable.
--- NOTE | 2019-07-09 15:21 | Hospitalist Progress Note ---
Date of Service July 09, 2019 Assessment & Plan (1) Tongue abnormality: (2) Abscess of tongue: Patient had been following Dr Soto for possible tongue hematoma for some time. Was seen by Dr Enrique Soto on 06/15/19. Face CT done showed 7mm calculus within distal left submandibular duct. Was being planned for surgery which patient had cancelled prior to recent seizure and hospital presentation. Likely bit tongue during episode which resulted in worsening of tongue swelling Yesterday patient was noted to have worsened swelling, submandibular fullness and possible tongue abscess. He was moved to ICU for closer monitoring of airway and possible intervention if needed. He has been on iv unasyn since yesterday with iv steroids. Swelling has improved significantly from my evaluation yesterday. Will continue current therapy Will keep NPO for now and reassess oral intake later Continue IVF Awaiting Dr Soto's evaluation (3) Seizure: History of heavy alcohol abuse Reports no drink since 06/27/19 last hospitalization. Negative alcohol level on admission Currently on keppra 750mg iv Seizure precautions Discussed with patient and grandmother who was in room that patient should not drive until cleared by Neurology Will continue keppra on discharge and follow up neurology outpatient (4) Alcohol abuse: Got MVI in the ED Continue thiamine (5) Hypokalemia: (6) Hypophosphatemia: Hypokalemia resolved with repletion Hypophosphatemia has resolved Continue to monitor (7) Thrombocytopenia: Chronic, likely secondary to chronic alcohol use Monitor platelets Subjective Patient seen and examined Has significant improvement in tongue swelling and neck fullness. Denied fevers, chills Reports pain has improved significantly Review of Systems Review of Systems: All systems reviewed and unremarkable except for mentioned above. Physical Exam Constitutional: well developed; no acute distress Eyes: PERRL, conjunctivae normal, anicteric sclerae ENMT: Tongue swelling has reduced. Able to visualize the uvula, unlike yesterday Speech has improved as well Neck: Submandibular fullness noted yesterday has improved significantly Tenderness has resolved Respiratory: normal respiratory effort, lungs clear to auscultation no respiratory distress Cardiovascular: RRR, no murmur, no edema Heart Sounds: normal S1 and normal S2 Gastrointestinal (Abdomen): normal bowel sounds, soft, nontender, no hepatosplenomegaly Musculoskeletal: no cyanosis or clubbing, extremities motor strength 5/5 Neurologic: PERRL, EOMI, accommodation nl, no face palsy, no dysarthria Psychiatric: A+Ox3, euthymic affect Results & Data Vital Signs (Past 12 Hours) Vital Signs Temp Pulse Pulse Resp BP BP Pulse Ox 07/09/19 14:00 85 14 128/104 H 07/09/19 13:56 87 17 143/113 H 07/09/19 13:00 95 H 13 143/113 H 07/09/19 12:00 127 H 26 H 123/89 07/09/19 11:00 89 20 151/101 H 100 07/09/19 10:00 92 H 16 147/105 H 100 07/09/19 09:00 122 H 19 154/110 H 90 07/09/19 08:00 36.8 C 87 94 H 13 138/99 129/93 100 07/09/19 07:00 88 18 129/93 07/09/19 06:00 64 14 127/69 98 07/09/19 05:00 67 14 131/81 97 07/09/19 04:00 36.5 C 113 H 25 H 149/90 H 93 Laboratory Results Short CBC 07/09/19 Range/Units 04:09 WBC 4.76 L (4.8-10.8) K/uL Hgb 13.6 L (14.0-18.0) g/dL Hct 37.7 L (42-52) % Plt Count 110 L D (130-400) K/uL BMP 07/09/19 04:09 Sodium 137 Potassium 4.0 D Chloride 103 Carbon Dioxide 23 BUN 7 Creatinine 0.67 Glucose 118 H Calcium 8.9 Urine 07/08/19 Range/Units Unknown Urine Color Yellow Urine Appearance Clear (Clear) Urine pH 6.0 (4.5-7.5) Ur Specific Reading 1.017 (1.000-1.030) Urine Protein Negative (Negative) Urine Glucose (UA) Negative (Negative)
[2019-07-09] MEDS ORDERED: LORazepam 0.5 MG/1 ML VIAL IV STA (19:08)
[2019-07-10] MEDS: D5W AND NSS 1,000 ML IV SCH (05:05)
[2019-07-10] MEDS: AMPICILLIN/SULBACTAM SOD 1,500 MG in 0.9 % SODIUM CHLORIDE 100 ML IV SCH ×2 (05:06→12:38)
[2019-07-10] MEDS: HYDROmorphone INJ 0.5 MG/0.5 ML SYR IV PRN ×2 (05:09→09:06)
[2019-07-10 06:01] LABS: Hematocrit (blood only) 35.1 % (42-52); Hemoglobin 12.4 g/dL (14.0-18.0); Mean Corpuscular Hemoglobin 33.8 pg (25-34); Mean Corpuscular Hgb Conc 35.3 g/dL (32-36); Mean Corpuscular Volume 95.6 fL (80-100); Mean Platelet Volume 10.1 fL (7.4-10.4); Platelet Count 113 K/uL (130-400); RDW Coefficient of Variation 13.6 % (11.5-14.5); RDW Standard Deviation 46.7 fL (36.4-46.3); Red Blood Count 3.67 M/uL (4.7-6.1); White Blood Count 4.55 K/uL (4.8-10.8)
[2019-07-10] MEDS: methylPREDNISolone 40 MG in SYRINGE 0 ML IV SCH (06:24)
[2019-07-10 06:41] LABS: BUN Creatinine Ratio 9.6 (10-20); Blood Urea Nitrogen 6 mg/dl (7-18); Calcium 8.6 mg/dl (8.5-10.1); Carbon Dioxide 29 mmol/L (21-32); Chloride 105 mmol/L (98-107); Creatinine Clr Calc Pharmacy 186.6 ml/min; Est GFR (African American) > 150.0; Est GFR (Non-African American) 136.2; Glucose 120 mg/dl (70-99); Potassium 3.9 mmol/L (3.5-5.1); Sodium 139 mmol/L (136-145)
--- NOTE | 2019-07-10 08:04 | Surgery Progress Note ---
Date of Service July 10, 2019 Assessment & Plan (1) Abscess of tongue: Dr. Soto will resume management of patient Subjective improved Physical Exam ENMT: tongue swelling subsiding Results & Data Vital Signs (Past 12 Hours) Vital Signs Temp Pulse Pulse Resp BP BP Pulse Ox 07/10/19 07:58 37 C 73 18 132/88 100 07/10/19 04:42 36.9 C 71 20 136/99 100 07/09/19 23:46 66 07/09/19 23:41 36.6 C 56 L 18 130/81 100
[2019-07-10] MEDS ORDERED: MULTI VIT W/MINERALS LIQUID 15 ML UDP PO SCH (09:00)
[2019-07-10] MEDS: THIAMINE HCL 100 MG in SYRINGE 9 ML IV SCH (09:10)
[2019-07-10] MEDS: FOLIC ACID 1 MG in SYRINGE 9.8 ML IV SCH (09:14)
[2019-07-10] MEDS: FAMOTIDINE 20 MG in SYRINGE 3 ML IV SCH (09:18)
[2019-07-10] MEDS: levETIRAcetam 750 MG in DEXTROSE 5% 100 ML IV SCH (09:22)
--- NOTE | 2019-07-10 09:38 | Surgery Consultation ---
Date of Consultation July 10, 2019 Tim is doing well this AM The tongue swelling has improved and the hematoma is resolving. There is no indication fo ran I&D of the hematoma given that it is resolving. He is swelling, talking and has no other symptoms except for the pain which is understaging. Suggest Augmentin for 10 days I will follow in office in 10-12 days--he has my card. We will need to deal with the stone w/in the left submandibular in the future. management of his drinking issues are a major goal. Plan D/C today --follow up Dr Soto History of Present Illness Attending Physician: Rylie Gallegos MD Allergies Allergy/AdvReac Type Severity Reaction Status Date / Time No Known Allergies Allergy Verified 07/06/19 18:44 Home Medications Home Medications Medication Instructions Recorded Confirmed Type No Known Home Medications 05/30/19 07/06/19 History Patient History Medical History Alcohol abuse (Chronic) Post traumatic stress disorder (Chronic) Hematoma (Inactive) TONGUE Thrombocytopenia (Inactive) PT UNAWARE Surgical History S/P cholecystectomy (Chronic) Hx of unilateral orchiectomy (Chronic) Social History Preferred Language: Tanzanian Communication Ability: Effective Visual Impairment: No Limitations Agricultural Equipment Mechanic Required: No Beliefs That Will Affect Care: None marital status: Single Current Living Situation: Alone current occupational status: 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 Feels Safe at Home: Yes Smoking Status: Never smoker Do You Dip or Chew Tobacco: No ; Second Hand Exposure: No ; Hx Alcohol Use: Yes Alcohol type: other Alcohol Intake Frequency Comment: History of heavy alcohol use; last drink 06/27 Hx Substance Use: No Results & Data Vital Signs (Past 12 Hours) Vital Signs Temp Pulse Pulse Resp BP BP Pulse Ox 07/10/19 07:58 37 C 73 18 132/88 100 07/10/19 04:42 36.9 C 71 20 136/99 100 07/09/19 23:46 66 07/09/19 23:41 36.6 C 56 L 18 130/81 100 PG Care Time/CCT Total # of Minutes Spent Total Time Spent with Patient: Total time spent is greater than 50% in coordination of care (as documented) at patient's floor/unit and/or counseling patient:
[2019-07-10] MEDS ORDERED: GABAPENTIN 600 MG TAB PO SCH (10:00)
[2019-07-10] MEDS ORDERED: GABAPENTIN 250 MG/5 ML 470 ML BTL PO SCH (10:00)
--- NOTE | 2019-07-10 11:45 | Hospitalist Progress Note ---
Date of Service July 10, 2019 Assessment & Plan (1) Tongue abnormality: (2) Abscess of tongue: Has been an ongoing issue recently and has been following with oral surgeon Dr Enrique Soto. Was seen by Dr Enrique Soto on 06/15/19 for tongue swelling which has been ongoing for weeks without improvement. Face CT done showed 7mm calculus within distal left submandibular duct Possible due to hematoma from the tongue bites vs mass. He was transfer to the ICU for closer monitoring of airway and possible intervention if needed. No airway compromise and clinically stable currently Case discussed with Surgery Dr. Soto today recommended no indication fo I&D of the hematoma since hematoma resolved On IV unasyn and steroid Tolerated clear liquid diet, will advance to full liquid as tolerated Will change abx to Augmentin to complete 10 days course Will follow in office in 10-12 days to deal with the stone w/in the left submandibular in the future. OK from surgery standpoint to discharge home today (3) Seizure: History of heavy alcohol abuse Reports no drink since 06/27/19 last hospitalization. Negative alcohol level on admission Currently on keppra 750mg iv, Will transition to oral Seizure precautions Advised pt no driving for now until clear by Neurology Follow up with neurology in 4 to 6 weeks outpatient (4) Alcohol abuse: Got MVI in the ED Continue thiamine and folic acid Counseling on alcohol cessation (5) Hypokalemia: (6) Hypophosphatemia: electrolytes stable Continue to monitor (7) Thrombocytopenia: Chronic, likely secondary to chronic alcohol use Platelet improves to 113K No sign of bleeding Monitor platelets Stable CODE STATUS FULL CODE Subjective Pt was seen and examined Lying in bed with no distress Pt said that he feels much better He said that the tongue swelling and pain improve He said that he tolerated clear liquid diet Physical Exam Physical Exam: General- No acute distress Head- atraumatic Eyes- PERRL, EOMI, ENT- Tongue mildly swelling, Uvula midline and no swelling Neck- supple, no JVD Lungs- clear to auscultation Heart- regular rhythm; no murmur Abdomen- normal bowel sounds, soft, nontender Extremities- no calf tenderness Neuro- alert, oriented x 3; PERRL, EOMI; no facial palsy; no dysarthria Skin- warm & dry Results & Data Vital Signs (Past 12 Hours) Vital Signs Temp Pulse Pulse Resp BP BP Pulse Ox 07/10/19 11:33 36.8 C 73 18 127/93 99 07/10/19 08:00 62 07/10/19 07:58 37 C 73 18 132/88 100 07/10/19 04:42 36.9 C 71 20 136/99 100 07/09/19 23:46 66 07/09/19 23:41 36.6 C 56 L 18 130/81 100
[2019-07-10] MEDS: ENOXAPARIN INJ 40 MG/0.4 ML SYR SQ SCH (12:26)
[2019-07-10] MEDS ORDERED: OXYCODONE HCL IR 5 MG TAB (IMMEDIATE RELEASE) PO PRN (13:00)
[2019-07-10] MEDS ORDERED: AMOXICILLIN/CLAVULANATE 875 MG TAB PO SCH (17:00)
[2019-07-11 00:40] LABS: Rapid Plasma Reagin Nonreactive (Nonreactive)
--- NOTE | 2019-07-12 09:44 | Discharge Summary ---
Date of Service July 10, 2019 Admission HPI Per Admitting Provider 23-year-old male who presents the ED for evaluation of possible seizure. Patient with history of very heavy alcohol use, most recent visit to the ED on 06/27 for alcohol intoxication with alcohol level of over 400. Patient reports for the past couple of days, he has had persistent vomiting. He describes emesis is bilious in nature. No hematemesis or coffee-ground emesis. Denies abdominal pain and diarrhea. Today, patient was at the grocery store when he reports he started to feel lightheaded and dizzy in the next thing he knew he woke up in the ambulance. Bystanders were concerned for possible seizure. Patient did bite his tongue. There was no loss of bowel or bladder function. Patient has had an ongoing tongue hematoma for the past couple months in which she has been following oral surgery for. Tongue swelling is now much worse after the event today. Patient is adamant that he has not had any alcohol since 06/27. Denies any history of prior seizures in the past. No other recent illnesses, fevers, chills. Denies chest pain and shortness of breath. No urinary symptoms. In the ED, patient is hemodynamically stable. Labs show K+ 3.1, phosphorus 1.2. Head CT is negative for acute findings. Patient was given IV Pepcid, IV lorazepam, banana bag, IV potassium phosphate, IV Compazine, NSS. Patient reports he is feeling improved. Admission Exam Per Admitting Provider Constitutional: WD/WN, vitals as above Eyes: PERRL, conjunctivae normal, anicteric sclerae ENMT: Ears: no external ear abnormality Nose: no external nose abnormality Mouth: + tongue abnormality (Ecchymosis and edema noted to right distal tongue) Respiratory: normal respiratory effort, lungs clear to auscultation Cardiovascular: regular rate and regular rhythm Vessels: normal peripheral pulses Extremities: no edema Gastrointestinal normal bowel sounds, soft, nontender, no hepatosplenomegaly Musculoskeletal: no cyanosis or clubbing, extremities motor strength 5/5 Skin: no rashes, warm and dry Neurologic: PERRL, EOMI, accommodation nl, no face palsy, no dysarthria Psychiatric: A+Ox3, euthymic affect Principal Diagnosis Tongue abnormality Abscess of tongue Seizure Alcohol abuse Hypokalemia Hypophosphatemia: Thrombocytopenia Discharge Exam General- No acute distress Head- atraumatic Eyes- PERRL, EOMI, ENT- Tongue mildly swelling, Uvula midline and no swelling Neck- supple, no JVD Lungs- clear to auscultation Heart- regular rhythm; no murmur Abdomen- normal bowel sounds, soft, nontender Extremities- no calf tenderness Neuro- alert, oriented x 3; PERRL, EOMI; no facial palsy; no dysarthria Skin- warm & dry Discharge Data Allergies Allergy/AdvReac Type Severity Reaction Status Date / Time No Known Allergies Allergy Verified 07/06/19 18:44 Consultations 07/06/19 20:09 ED Decision to Admit Stat 07/06/19 21:50 Consult Neurology Routine Consult Oromaxillofacial Surgery Routine 07/08/19 12:43 Consult Black Oxide Coating Equipment Tender Stat Consult Otolaryngology (Head and Neck) Stat Ordered Studies 07/06/19 17:38 CT head/brain wo con Stat 07/07/19 21:50 MR brain seizure wo/w con Routine MR brain seizure wo/w con HISTORY: 23 years-old Male seizure acute seizure like activity with lethargy COMPARISON: CT head 07/06/2019 TECHNIQUE: Multiplanar multisequence MRI of the brain was obtained both with and without the use of 7.6 mL Gadavist utilizing seizure protocol. FINDINGS: No gross abnormality identified on the large [id number] votator machine operator localizer images. There is no restricted diffusion to suggest acute or subacute infarction. Midline structures including the corpus callosum, brainstem, optic chiasm, pituitary and pineal glands appear unremarkable on the sagittal T1 series. No cerebellar tonsillar herniation. Imaged cervical spine appears unremarkable. There is no acute intracranial hemorrhage, midline shift, abnormal extra-axial collection, hydrocephalus or intracranial mass. There are no significant T2/FLAIR signal abnormalities of the brain parenchyma identified. No acute seizure focus, cortical dysplasia, galeana matter heterotopia or mesial temporal sclerosis identified. No abnormal intra-axial or extra-axial enhancement. The major flow voids at the level of the skull base appear patent. Mastoid air cells are clear. Mucosal thickening of the left nasal turbinates and bilateral ethmoid air cells. Left prashant bullosa. The skull, soft tissues and orbits are unremarkable. IMPRESSION: 1. No acute intracranial abnormality. 2. No abnormal enhancement. The above report was generated using voice recognition software. It may contain grammatical, syntax or spelling errors. Electronically signed by: Dov Schmitz M.D. 07/07/2019 11:03 AM Dictated: 07/07/19 1057 Transcribed: 07/07/191056 CT head/brain wo con CLINICAL HISTORY: 23 years-old Male with seizures. Acute seizure like activity TECHNIQUE: Multiple axial CT images of the head were obtained without contrast. A dose lowering technique was utilized adhering to the principles of ALARA. CT DOSE: 537.48 mGy.cm COMPARISON: Head CT 05/30/2019. FINDINGS: No acute intracranial hemorrhage, midline shift, intracranial mass, hydrocephalus, territorial ischemia or abnormal extra-axial collection. The calvarium is intact. The paranasal sinuses, mastoid air cells, and middle ear cavities are clear. IMPRESSION: No acute intracranial abnormality. The above report was generated using voice recognition software. It may contain grammatical, syntax or spelling errors. Electronically signed by: Dov Schmitz M.D. 07/06/2019 6:58 PM Dictated: 07/06/191856 Transcribed: 07/06/191856 XR chest 1V portable HISTORY: 23 years-old Male Chest Pain acute atypical chest pain COMPARISON: Chest radiograph 05/20/2019 TECHNIQUE: Portable AP view of the chest FINDINGS: Cardiomediastinal and hilar silhouettes are within normal limits. No pneumothorax, pleural effusion, focal airspace consolidation or overt pulmonary edema. Bones of the chest appear grossly intact. Degenerative changes of the right AC joint redemonstrated. Cholecystectomy. IMPRESSION: No acute process. The above report was generated using voice recognition software. It may contain grammatical, syntax or spelling errors. Electronically signed by: Dov Schmitz M.D. 07/06/2019 5:58 PM Dictated: 07/06/191756 Transcribed: 07/06/191756 Hospital Course (1) Tongue abnormality: Has been an ongoing issue recently and has been following with oral surgeon Dr Enrique Soto. Was seen by Dr Enrique Soto on 06/15/19 for tongue swelling which has been ongoing for weeks without improvement. Face CT done showed 7mm calculus within distal left submandibular duct Concern for ?hematoma vs mass. Was being planned for surgery per surgeons note Spoke with Dr Soto who reported that patient was planned for OR but called the day before and cancelled without giving reason. Currently maintaining airway but concern for possible airway compromise Keep NPO for now IV unasyn and steroid Spoke with ENT physician upper extremity surgeon Dr Rhoades who will evaluate. Will await recommendations (2) Abscess of tongue: Has been an ongoing issue recently and has been following with oral surgeon Dr Enrique Soto. Was seen by Dr Enrique Soto on 06/15/19 for tongue swelling which has been ongoing for weeks without improvement. Face CT done showed 7mm calculus within distal left submandibular duct Possible due to hematoma from the tongue bites vs mass. He was transfer to the ICU for closer monitoring of airway and possible intervention if needed. No airway compromise and clinically stable currently Case discussed with Surgery Dr. Soto today recommended no indication fo I&D of the hematoma since hematoma resolved On IV unasyn and steroid Tolerated clear liquid diet, will advance to full liquid as tolerated Will change abx to Augmentin to complete 10 days course Will follow in office in 10-12 days to deal with the stone w/in the left sub mandibular in the future. OK from surgery standpoint to discharge home today (3) Seizure: History of heavy alcohol abuse Reports no drink since 06/27/19 last hospitalization. Negative alcohol level on admission Currently on keppra 750mg iv, Will transition to oral Seizure precautions Advised pt no driving for now until clear by Neurology Follow up with neurology in 4 to 6 weeks outpatient (4) Alcohol abuse: Got MVI in the ED Continue thiamine and folic acid Counseling on alcohol cessation (5) Hypokalemia: (6) Hypophosphatemia: electrolytes stable Continue to monitor (7) Thrombocytopenia: Chronic, likely secondary to chronic alcohol use Platelet improves to 113K No sign of bleeding Monitor platelets Stable CODE STATUS FULL CODE Total Time Total Time Spent Total Time Spent (In Minutes): 35 minutes Total Time Includes: Examination of the Patient, Discharge Planning, Medication Reconciliation, Communication With Other Providers and Other Discharge Plan Discharge Items Patient Disposition: Home - Self-Care Reason For Visit: SEIZURE Discharge Diagnosis: Tongue abnormality Abscess of tongue Seizure Alcohol abuse Hypokalemia Hypophosphatemia: Thrombocytopenia Activity: Resume your previous activity Activity Comment: as tolerated Non-emergency contact: Primary Care Provider, Surgeon and Neurologist Call non-emergency contact if: you have any medication questions and your temperature is above 101 Follow-up/Referrals: PCP,NO [Primary Care Provider] - Diet: Regular Diet Texture: Mechanical soft (ground) Addtl Attending Provider Instructions: Follow up with neurology Diamond Trinidad PA-C on 08/13 @ 11:20 AM (At [address], [place], [address]) Follow up with surgery Dr. Soto (Please call to schedule for the appointment ) You will need to choose a primary care provider and call to schedule for follow up appointment Complete course of the antibiotic with Augmentin Counseling on alcohol cessation No driving until clear by neurology Seizure precaution ( No high level activity, no bath or swimming alone) Please hold next dose of narcotic if you become drowsy and lethargy Do not drive or operate any machine while taking narcotic Follow a soft diet and advance as tolerate Continue daily oral care Pending Studies at Discharge: No Stand-Alone Forms: My [facility], Smoking Cessation Medications and DC Order Prescriptions: New amoxicillin-pot clavulanate 875-125 mg Tablet 1 tab PO BIDM 9 Days Qty: 18 RF: 0 levetiracetam [Keppra] 750 mg tablet 750 mg PO BID 30 Days Qty: 60 RF: 0 oxycodone 5 mg Tablet 5 mg PO Q8H PRN (Reason: pain) Qty: 10 RF: 0 thiamine HCl (vitamin B1) 100 mg tablet 100 mg PO DAILY Qty: 30 RF: 0 folic acid 1 mg tablet 1 mg PO DAILY Qty: 30 RF: 0 No Action No Known Home Medications RF: 0 Discharge Orders: Discharge Order (Routine); Ordered 07/10/19 Ordered By: Rylie Gallegos Admission Data Admit Date/Time: 07/06/19 20:45 Attending Provider: Rylie Gallegos Admit Provider: Rudy Ricci Primary Care Provider: PCP,NO Other Providers: Rudy Ricci ; Moreno More ; Enrique Soto ; Nikita Sosa ; Lara Rhoades ; Yasmeen Laura I. Other Interventions: Discharge Summary Assessment (RN) Last Done: 07/10/19 15:43 DC Date/Time DO NOT enter until pt leaves facility: 07/10/19 17:15
== END 2019-07-10 17:15 | disposition home or self-care (01) | DRG 101 ==
LOC: ED 16:51 → SUATTDRO 20:45 → 2S 20:45 → 1E 07-08 12:32 → 2S 07-09 15:15

== ENCOUNTER 2019-11-16 14:35 | Inpatient (IN) ==
[2019-11-16] MEDS ORDERED: MULTI-VITAMIN INFUSION 10 ML, THIAMINE HCL 100 MG, FOLIC ACID 1 MG in SODIUM CHLORIDE 0... IV ONE (15:24)
[2019-11-16] MEDS ORDERED: cloNIDine HCL 0.3 MG/24 HR TRANSDERM SYS TD STA (15:24)
[2019-11-16] MEDS ORDERED: LORazepam 1 ML IM STA (15:24)
[2019-11-16] MEDS ORDERED: ONDANSETRON INJ 2 MG/ML 2 ML VIAL IV STA (15:38)
[2019-11-16] MEDS ORDERED: LORazepam 2 MG/4 ML VIAL IV PRN (15:49)
[2019-11-16 16:05] LABS: Albumin Level 4.8 gm/dl (3.4-5.0); BUN Creatinine Ratio 11.5 (10-20); Creatinine Clr Calc Pharmacy 115.8 ml/min; Est GFR (African American) 115.1; Est GFR (Non-African American) 99.3; Potassium 3.6 mmol/L (3.5-5.1)
[2019-11-16 16:08] LABS: Albumin Globulin Ratio 1.4 (0.9-2); Bilirubin,Total 1.6 mg/dl (0.2-1); Globulin 3.4 gm/dl (2.5-4.0); Total Protein 8.2 gm/dl (6.4-8.2)
[2019-11-16] MEDS ORDERED: SODIUM CHLORIDE 0.9% 1000ML 1,000 ML IV ONE (16:08)
[2019-11-16] MEDS: CHECK CLONIDINE PATCH PLACEMENT SCH (16:16)
[2019-11-16 16:17] LABS: Basophils # (auto) 0.01 K/uL (0-0.2); Basophils % (auto) 0.2 %; Hematocrit (blood only) 46.8 % (42-52); Hemoglobin 16.8 g/dL (14.0-18.0); Immature Granulocytes # (auto) 0.02 K/uL (0.00-0.02); Immature Granulocytes % (auto) 0.4 %; Lymphocytes # (auto) 0.41 K/uL (1.2-3.4); Mean Corpuscular Hemoglobin 33.9 pg (25-34); Mean Corpuscular Hgb Conc 35.9 g/dL (32-36); Mean Corpuscular Volume 94.5 fL (80-100); Mean Platelet Volume 9.6 fL (7.4-10.4); Monocytes # (auto) 0.17 K/uL (0.11-0.59); Monocytes % (auto) 3.3 %; Neutrophils % (auto) 88.1 %; Platelet Count 116 K/uL (130-400); RDW Coefficient of Variation 12.9 % (11.5-14.5); RDW Standard Deviation 43.9 fL (36.4-46.3); Red Blood Count 4.95 M/uL (4.7-6.1); White Blood Count 5.11 K/uL (4.8-10.8)
[2019-11-16] MEDS ORDERED: LORazepam 2 MG/4 ML VIAL IV STA (16:59)
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
[2019-11-16 19:22] LABS: Amphetamines+Metham, Urine Neg (Neg); Barbiturates, Urine Neg (Neg); Benzodiazepine, Urine Neg (Neg); Cocaine, Urine Neg (Neg); MDMA (Ecstacy), Urine Neg (Neg); Methadone, Urine Neg (Neg); Opiate, Urine Neg (Neg); Phencyclidine, Urine Neg (Neg)
[2019-11-16] MEDS ORDERED: GABAPENTIN 1200MG ALCOHOL WITHDRAWAL LOAD PO ONE (20:50)
[2019-11-16] MEDS ORDERED: LORazepam 3 MG/6 ML VIAL IV PRN (20:50)
[2019-11-16] MEDS ORDERED: ATIVAN IV ALCOHOL WITHDRAWL IV PRN (20:50)
[2019-11-16] MEDS ORDERED: GABAPENTIN 600 MG TAB PO SCH (21:00)
--- NOTE | 2019-11-16 21:14 | Emergency Department Note ---
History of Present Illness General Chief complaint: Alcohol Withdrawal Stated complaint: ALCOHOL WITHDRAWAL Time Seen by Provider: 11/16/19 15:17 Source: patient Mode of arrival: ambulatory Limitations: no limitations History of Present Illness Provider complaint: alcohol withdrawal Onset (ago): hour(s) 6 Maximum Pain Intensity: 9 Current Pain Intensity: 9 Relieved By: + none Exacerbated By: + none Associated symptoms: + denies other symptoms Treatments prior to arrival: none This is a 24-year-old male who presents emergency department complaining of alcohol withdrawal. The patient reports he has had seizures previously from his alcohol withdrawal. He claims his last drink was last evening. The patient was trying to go to [facility] today however based on the patient's past medical history they sent him to the emergency department over concerns that the patient needed to be medically cleared. Home Medications Home Medications Medication Instructions Recorded Confirmed Type No Known Home Medications 11/16/19 11/16/19 History Allergies Allergy/AdvReac Type Severity Reaction Status Date / Time blue dye AdvReac Vomiting Unverified 11/16/19 16:43 levetiracetam AdvReac overly Unverified 11/16/19 16:43 emotional red dye AdvReac Vomiting Unverified 11/16/19 16:43 Past Med/Surg History Social History Preferred Language: Icelandic Communication Ability: Effective Visual Impairment: No Limitations Generation Technologist Required: No Beliefs That Will Affect Care: None marital status: Single Current Living Situation: Alone current occupational status: 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 Other Information That Helps Us Care for You: No Feels Safe at Home: Yes Safety Concerns: Feels Safe At This Time Smoking Status: Light tobacco smoker Tobacco Type: cigarettes ; Do You Dip or Chew Tobacco: No ; Second Hand Exposure: No ; Hx Alcohol Use: Yes Alcohol type: hard liquor Alcohol Intake Frequency Comment: History of heavy alcohol use; last drink 06/27 Hx Substance Use: No Review of Systems A total of 10 systems reviewed and were otherwise negative Physical Exam Vital Signs Vital Signs - 24 hr 11/16/19 14:45 11/16/19 15:28 11/16/19 15:30 Temperature 36.4 C L Temperature Source Oral Pulse Rate 139 H 123 H 111 H Pulse Rate [Left] Pulse Rate from SpO2 Sensor 110 H Respiratory Rate 18 20 19 Respiratory Effort / Characteristics Respiratory Depth Blood Pressure 115/92 143/86 H Blood Pressure [Right Arm] Blood Pressure Mean 99 103 Blood Pressure Mean [Right Arm] Blood Pressure Position [Right Arm] Pulse Oximetry 97 99 99 Oxygen Delivery Method Room Air Room Air Sepsis Recent Fever Within 48 Hours No Sepsis New/Unexplained Change in Mental Status No Sepsis Action Taken by Nursing No Action Required 11/16/19 15:33 11/16/19 15:39 11/16/19 15:40 Temperature Temperature Source Pulse Rate 114 H 118 H Pulse Rate [Left] 114 H Pulse Rate from SpO2 Sensor 117 H 115 H Respiratory Rate 14 17 21 Respiratory Effort / Characteristics Non-Labored Spontaneous Respiratory Depth Normal Blood Pressure Blood Pressure [Right Arm] 143/86 H Blood Pressure Mean Blood Pressure Mean [Right Arm] 105 Blood Pressure Position [Right Arm] Lying Pulse Oximetry 98 97 97 Oxygen Delivery Method Room Air Sepsis Recent Fever Within 48 Hours Sepsis New/Unexplained Change in Mental Status Sepsis Action Taken by Nursing 11/16/19 15:45 11/16/19 15:50 11/16/19 16:00 Temperature Temperature Source Pulse Rate 136 H 117 H 114 H Pulse Rate [Left] Pulse Rate from SpO2 Sensor 134 H 120 H 106 H Respiratory Rate 18 17 18 Respiratory Effort / Characteristics Respiratory Depth Blood Pressure 140/98 147/102 H Blood Pressure [Right Arm] Blood Pressure Mean 114 115 Blood Pressure Mean [Right Arm] Blood Pressure Position [Right Arm] Pulse Oximetry 96 97 99 Oxygen Delivery Method Sepsis Recent Fever Within 48 Hours Sepsis New/Unexplained Change in Mental Status Sepsis Action Taken by Nursing 11/16/19 16:10 11/16/19 16:13 11/16/19 16:15 Temperature Temperature Source Pulse Rate 118 H 120 H 124 H Pulse Rate [Left] Pulse Rate from SpO2 Sensor 117 H 120 H 121 H Respiratory Rate 19 18 18 Respiratory Effort / Characteristics Respiratory Depth Blood Pressure 147/102 H 144/91 H Blood Pressure [Right Arm] Blood Pressure Mean 115 98 Blood Pressure Mean [Right Arm] Blood Pressure Position [Right Arm] Pulse Oximetry 98 98 99 Oxygen Delivery Method Sepsis Recent Fever Within 48 Hours Sepsis New/Unexplained Change in Mental Status Sepsis Action Taken by Nursing 11/16/19 16:20 11/16/19 16:30 11/16/19 16:31 Temperature Temperature Source Pulse Rate 112 H 119 H 121 H Pulse Rate [Left] Pulse Rate from SpO2 Sensor 117 H 122 H 124 H Respiratory Rate 16 21 13 Respiratory Effort / Characteristics Respiratory Depth Blood Pressure 144/104 H Blood Pressure [Right Arm] Blood Pressure Mean 108 Blood Pressure Mean [Right Arm] Blood Pressure Position [Right Arm] Pulse Oximetry 98 99 98 Oxygen Delivery Method Sepsis Recent Fever Within 48 Hours Sepsis New/Unexplained Change in Mental Status Sepsis Action Taken by Nursing 11/16/19 16:40 11/16/19 16:45 11/16/19 16:50 Temperature Temperature Source Pulse Rate 117 H 105 H 107 H Pulse Rate [Left] Pulse Rate from SpO2 Sensor 118 H 107 H 106 H Respiratory Rate 27 H 15 16 Respiratory Effort / Characteristics Respiratory Depth Blood Pressure 128/93 Blood Pressure [Right Arm] Blood Pressure Mean 104 Blood Pressure Mean [Right Arm] Blood Pressure Position [Right Arm] Pulse Oximetry 100 100 100 Oxygen Delivery Method Sepsis Recent Fever Within 48 Hours Sepsis New/Unexplained Change in Mental Status Sepsis Action Taken by Nursing 11/16/19 17:00 11/16/19 17:10 11/16/19 17:15 Temperature Temperature Source Pulse Rate 102 H 103 H 109 H Pulse Rate [Left] Pulse Rate from SpO2 Sensor 100 H 110 H 111 H Respiratory Rate 21 13 16 Respiratory Effort / Characteristics Respiratory Depth Blood Pressure 150/86 H 127/98 Blood Pressure [Right Arm] Blood Pressure Mean 113 103 Blood Pressure Mean [Right Arm] Blood Pressure Position [Right Arm] Pulse Oximetry 100 98 100 Oxygen Delivery Method Sepsis Recent Fever Within 48 Hours Sepsis New/Unexplained Change in Mental Status Sepsis Action Taken by Nursing 11/16/19 17:20 11/16/19 17:30 11/16/19 17:40 Temperature Temperature Source Pulse Rate 106 H 118 H 121 H Pulse Rate [Left] Pulse Rate from SpO2 Sensor 108 H 118 H 120 H Respiratory Rate 31 H 21 30 H Respiratory Effort / Characteristics Respiratory Depth Blood Pressure 144/106 H Blood Pressure [Right Arm] Blood Pressure Mean 128 Blood Pressure Mean [Right Arm] Blood Pressure Position [Right Arm] Pulse Oximetry 100 100 99 Oxygen Delivery Method Sepsis Recent Fever Within 48 Hours Sepsis New/Unexplained Change in Mental Status Sepsis Action Taken by Nursing 11/16/19 17:45 11/16/19 17:50 11/16/19 18:00 Temperature Temperature Source Pulse Rate 116 H 110 H 117 H Pulse Rate [Left] Pulse Rate from SpO2 Sensor 115 H 110 H 115 H Respiratory Rate 23 20 22 Respiratory Effort / Characteristics Respiratory Depth Blood Pressure 141/86 H 144/95 H Blood Pressure [Right Arm] Blood Pressure Mean 91 107 Blood Pressure Mean [Right Arm] Blood Pressure Position [Right Arm] Pulse Oximetry 99 98 96 Oxygen Delivery Method Sepsis Recent Fever Within 48 Hours Sepsis New/Unexplained Change in Mental Status Sepsis Action Taken by Nursing 11/16/19 18:10 11/16/19 18:15 11/16/19 18:20 Temperature Temperature Source Pulse Rate 114 H 135 H 122 H Pulse Rate [Left] Pulse Rate from SpO2 Sensor 119 H Respiratory Rate 22 12 14 Respiratory Effort / Characteristics Respiratory Depth Blood Pressure 137/89 Blood Pressure [Right Arm] Blood Pressure Mean 118 Blood Pressure Mean [Right Arm] Blood Pressure Position [Right Arm] Pulse Oximetry 98 Oxygen Delivery Method Sepsis Recent Fever Within 48 Hours Sepsis New/Unexplained Change in Mental Status Sepsis Action Taken by Nursing GENERAL: Patient is a ill-appearing well-nourished male crying on exam HEAD: Normocephalic atraumatic EYES: Ocular movements intact pupils equal and react to light OROPHARYNX mucous membranes are moist no exudates present no erythema or edema present NECK: Supple no nuchal rigidity CHEST: Good equal expansion LUNGS: Clear and equal to auscultation CARDIAC: Normal S1 and S2 ABDOMEN: Soft nontender no guarding BACK: No CVA tenderness EXTREMITIES: No pain upon palpation normal muscle strength in all groups no clubbing cyanosis or edema NEURO: Patient is following commands is answering questions appropriately. Alert and oriented x3 Cranial Nerves 2-12 grossly intact Course Administered Medications Thiamine HCl 100 mg/ Syringe 10 mls @ 2 mls/min IV QAM SULMA Stop: 12/16/19 20:59 Last Admin: 11/16/19 22:20 Dose: 2 mls/min Documented by: [id number] Folic Acid 1 mg/ Syringe 10 mls @ 5 mls/min IV QAM SULMA Stop: 12/16/19 20:59 Last Admin: 11/16/19 22:20 Dose: 5 mls/min Documented by: [id number] Lorazepam (Ativan) 2 mg in 4 mls @ 4 mls/min IV UD PRN; Protocol PRN Reason: EtOH Withdrawl AWSS Score 8,9 Stop: 12/16/19 20:49 Last Admin: 11/16/19 22:56 Dose: 4 mls/min Documented by: [id number] Sodium Chloride (Nss 1000ml) 1,000 mls @ 100 mls/hr IV .Q10H SULMA Stop: 12/16/19 20:49 Last Admin: 11/16/19 22:20 Dose: 100 mls/hr Documented by: [id number] Miscellaneous (Check Clonidine Patch) 1 ea N/A QS SULMA Stop: 12/16/19 15:59 Last Admin: 11/16/19 16:16 Dose: 1 ea Documented by: [id number] Discontinued Medications Clonidine HCl (Nmiijbbs-Uha-4 0.3mg/24hr) 1 patch TD NOW STA Stop: 11/16/19 15:25 Last Admin: 11/16/19 15:49 Dose: 1 patch Documented by: [id number] Gabapentin (Neurontin) 1,200 mg PO 2100 SULMA Stop: 11/16/19 21:01 Last Admin: 11/16/19 22:21 Dose: 1,200 mg Documented by: [id number] Multivitamins 10 ml/ Thiamine HCl 100 mg/ Folic Acid 1 mg/Sodium Chloride 1,011.2 mls @ 1,011.2 mls/hr IV .Q1H ONE Stop: 11/16/19 16:23 Last Infusion: 11/16/19 16:55 Dose: 0 mls/hr Documented by: [id number] Admin: 11/16/19 15:50 Dose: 1,011.2 mls/hr Documented by: [id number] Lorazepam (Ativan) 2 mg in 4 mls @ 2 mls/min IV NOW PRN PRN Reason: s/s alcohol withdrawal Last Admin: 11/16/19 15:57 Dose: 2 mls/min Documented by: [id number] Sodium Chloride (Nss 1000ml) 1,000 mls @ 999 mls/hr IV .Q1H1M ONE Stop: 11/16/19 17:08 Last Infusion: 11/16/19 17:51 Dose: 0 mls/hr Documented by: [id number] Admin: 11/16/19 16:40 Dose: 999 mls/hr Documented by: [id number] Lorazepam (Ativan) 2 mg in 4 mls @ 4 mls/min IV NOW STA Stop: 11/16/19 17:00 Last Admin: 11/16/19 17:48 Dose: 4 mls/min Documented by: [id number] Ondansetron HCl (Zofran) 4 mg IV NOW STA Stop: 11/16/19 15:39 Last Admin: 11/16/19 15:49 Dose: 4 mg Documented by: [id number] Critical Care Time I have personally spent greater than 90 minutes of critical care time in the direct management of this patient. This includes bedside care, interpretation of diagnostic studies, and testing, discussion with consultants, patient, and family members, and other required patient management activities. This 90 minutes is in excess of all separately billable procedures. Medical Decision Making Differential Diagnosis My differential diagnosis includes alcohol intoxication, alcohol withdrawal, seizure, electrolyte disturbance Medical Records Attestation: I reviewed the patient's medical records. Home Medications Current Medication List: was personally reviewed by me Laboratory Data Attestation: I reviewed the patient's lab results. Result diagrams: 11/16/19 15:31 11/16/19 15:31 Lab Results 11/16/19 11/16/19 11/16/19 Range/Units 15:31 15:31 15:31 WBC 5.11 (4.8-10.8) K/uL RBC 4.95 (4.7-6.1) M/uL Hgb 16.8 (14.0-18.0) g/dL Hct 46.8 (42-52) % MCV 94.5 (80-100) fL MCH 33.9 (25-34) pg MCHC 35.9 (32-36) g/dL RDW Std Deviation 43.9 (36.4-46.3) fL RDW Coeff of Phill 12.9 (11.5-14.5) % Plt Count 116 L (130-400) K/uL MPV 9.6 (7.4-10.4) fL Immature Gran % (Auto) 0.4 % Neut % (Auto) 88.1 % Lymph % (Auto) 8.0 % [place] % (Auto) 3.3 % Eos % (Auto) 0.0 % Baso % (Auto) 0.2 % Immature Gran # (Auto) 0.02 (0.00-0.02) K/uL Neut # (Auto) 4.50 (1.4-6.5) K/uL Lymph # (Auto) 0.41 L (1.2-3.4) K/uL [place] # (Auto) 0.17 (0.11-0.59) K/uL Eos # (Auto) 0.00 (0-0.5) K/uL Baso # (Auto) 0.01 (0-0.2) K/uL Sodium 138 (136-145) mmol/L Potassium 3.6 (3.5-5.1) mmol/L Chloride 97 L (98-107) mmol/L Carbon Dioxide 20 L (21-32) mmol/L Anion Gap 21.0 H (3-11) BUN 12 (7-18) mg/dl Creatinine 1.04 (0.6-1.4) mg/dl Est Cr Clr Drug Dosing 115.8 ml/min Est GFR ( Amer) 115.1 Est GFR (Non-Af Amer) 99.3 BUN/Creatinine Ratio 11.5 (10-20) Glucose 124 H (70-99) mg/dl POC Glucose (70-99) mg/dl Calcium 9.0 (8.5-10.1) mg/dl Total Bilirubin 1.6 H (0.2-1) mg/dl AST 179 H (15-37) U/L ALT 102 H (12-78) U/L Alkaline Phosphatase 107 (45-117) U/L Total Protein 8.2 (6.4-8.2) gm/dl Albumin 4.8 (3.4-5.0) gm/dl Globulin 3.4 (2.5-4.0) gm/dl Albumin/Globulin Ratio 1.4 (0.9-2) TSH (0.300-4.500) uIu/ml Ethyl Alcohol mg/dL 387.0 H (0-3) mg/dl 11/16/19 11/16/19 Range/Units 15:31 16:02 WBC (4.8-10.8) K/uL RBC (4.7-6.1) M/uL Hgb (14.0-18.0) g/dL Hct (42-52) % MCV (80-100) fL MCH (25-34) pg MCHC (32-36) g/dL RDW Std Deviation (36.4-46.3) fL RDW Coeff of Phill (11.5-14.5) % Plt Count (130-400) K/uL MPV (7.4-10.4) fL Immature Gran % (Auto) % Neut % (Auto) % Lymph % (Auto) % [place] % (Auto) % Eos % (Auto) % Baso % (Auto) % Immature Gran # (Auto) (0.00-0.02) K/uL Neut # (Auto) (1.4-6.5) K/uL Lymph # (Auto) (1.2-3.4) K/uL [place] # (Auto) (0.11-0.59) K/uL Eos # (Auto) (0-0.5) K/uL Baso # (Auto) (0-0.2) K/uL Sodium (136-145) mmol/L Potassium (3.5-5.1) mmol/L Chloride (98-107) mmol/L Carbon Dioxide (21-32) mmol/L Anion Gap (3-11) BUN (7-18) mg/dl Creatinine (0.6-1.4) mg/dl Est Cr Clr Drug Dosing ml/min Est GFR ( Amer) Est GFR (Non-Af Amer) BUN/Creatinine Ratio (10-20) Glucose (70-99) mg/dl POC Glucose 132 H (70-99) mg/dl Calcium (8.5-10.1) mg/dl Total Bilirubin (0.2-1) mg/dl AST (15-37) U/L ALT (12-78) U/L Alkaline Phosphatase (45-117) U/L Total Protein (6.4-8.2) gm/dl Albumin (3.4-5.0) gm/dl Globulin (2.5-4.0) gm/dl Albumin/Globulin Ratio (0.9-2) TSH 0.613 (0.300-4.500) uIu/ml Ethyl Alcohol mg/dL (0-3) mg/dl ECG Data Attestation: I personally reviewed and interpreted this ECG as follows: Indication: + toxicologic Rate (beats per minute): 112 Rhythm: + sinus tachycardia ECG Intervals/blocks: + Incomplete right bundle branch block ECG Pilot: no Normal ECG ST segments: no ST depression and no ST elevation MDM Narrative This is a 24-year-old male who presents emergency department complaining of alcohol withdrawal. The patient's alcohol level was found to be grossly elevated close to 400. In the meantime an IV was established, the patient is given a banana bag as well as a normal saline bolus and Ativan x2. He was placed on a clonidine patch. Because of the high level of the alcohol I did discuss case with the hospitalist service who did agree to admit the patient. Impression & Plan Alcohol use Discharge Plan Visit Data *Final* Discharge Date/Time: 11/16/19 19:50 Chief Complaint: Alcohol Withdrawal Stated Complaint: ALCOHOL WITHDRAWAL ED Provider: Miky Diaz Discharge Problem: Alcohol use Patient Disposition: Admitted As Inpatient Discharge Instructions Interventions: ED Discharge Assessment Last Done: 11/16/19 19:50
[2019-11-16] MEDS: FOLIC ACID 1 MG in SYRINGE 9.8 ML IV SCH (22:20)
[2019-11-16] MEDS: SODIUM CHLORIDE 0.9% 1000ML 1,000 ML IV SCH (22:20)
[2019-11-16] MEDS: THIAMINE HCL 100 MG in SYRINGE 9 ML IV SCH (22:20)
[2019-11-16] MEDS: LORazepam 2 MG/4 ML VIAL IV PRN (22:56)
[2019-11-17] MEDS: LORazepam 1 MG/2 ML VIAL IV PRN ×2 (00:36→03:09)
[2019-11-17] MEDS: CHECK CLONIDINE PATCH PLACEMENT SCH ×4 (00:42→23:51)
[2019-11-17] MEDS: GABAPENTIN 600 MG TAB PO SCH ×3 (05:57→22:05)
[2019-11-17 07:25] LABS: Alanine Aminotransferase 71 U/L (12-78); Albumin Globulin Ratio 1.3 (0.9-2); Albumin Level 3.5 gm/dl (3.4-5.0); Alkaline Phosphatase 75 U/L (45-117); Aspartate Aminotransferase 103 U/L (15-37); BUN Creatinine Ratio 9.8 (10-20); Blood Urea Nitrogen 6 mg/dl (7-18); Calcium 7.8 mg/dl (8.5-10.1); Carbon Dioxide 25 mmol/L (21-32); Chloride 100 mmol/L (98-107); Creatinine Clr Calc Pharmacy 200.8 ml/min; Est GFR (African American) > 150.0; Globulin 2.7 gm/dl (2.5-4.0); Glucose 72 mg/dl (70-99); Sodium 134 mmol/L (136-145); Total Protein 6.2 gm/dl (6.4-8.2)
[2019-11-17] MEDS: FOLIC ACID 1 MG in SYRINGE 9.8 ML IV SCH (08:06)
[2019-11-17] MEDS: THIAMINE HCL 100 MG in SYRINGE 9 ML IV SCH (08:06)
[2019-11-17] MEDS: SODIUM CHLORIDE 0.9% 1000ML 1,000 ML IV SCH ×2 (08:20→18:21)
[2019-11-17] MEDS ORDERED: POTASSIUM CHLORIDE 20 MEQ TABCR PO STA (08:54)
[2019-11-17] MEDS: LORazepam 2 MG/4 ML VIAL IV PRN ×3 (09:08→22:04)
[2019-11-17] MEDS: POTASSIUM CHLORIDE / WTR 10 MEQ/100 ML PLCT IV SCH ×2 (09:36→10:51)
--- NOTE | 2019-11-17 11:44 | Electrocardiogram Report ---
Test Reason : Blood Pressure : / mmHG Vent. Rate : 112 BPM Atrial Rate : 112 BPM P-R Int : 124 ms QRS Dur : 096 ms QT Int : 340 ms P-R-T Axes : 079 -03 034 degrees QTc Int : 464 ms Poor data quality, interpretation may be adversely affected Sinus tachycardia with occasional Premature ventricular complexes Otherwise normal ECG When compared with ECG of 06-JUL-2019 18:31, Incomplete right bundle branch block is no longer Present Otherwise no significant change Confirmed by Kevin Sewell ([id number] on 11/17/2019 11:44:25 AM Referred By: REFERRED SELF Confirmed By:Kevin Sewell
[2019-11-17] MEDS: ONDANSETRON INJ 2 MG/ML 2 ML VIAL IV PRN (12:15)
[2019-11-17] MEDS: hydrOXYzine HCl 10 MG TAB PO PRN ×2 (13:28→14:53)
--- NOTE | 2019-11-17 14:57 | Hospitalist Progress Note ---
Date of Service November 17, 2019 Assessment & Plan (1) Alcohol abuse: Presented to the ER to treat for alcohol withdrawal before going to inpatient alcohol rehab Hx of Alcohol withdrawal and alcohol withdrawal seizure in the past Alcohol level 387 on admission UDS negative Received Ativan 2 mg IV x2 in the ER and Banana beg Continue alcohol withdrawal protocol with gabapentin and ativan Will monitor closely for alcohol withdrawal and DT Starting on Thiamine and folic acid Counseling on alcohol cessation Plan to go to alcohol inpatient rehab Elevated Liver enzymes Possible related to alcohol abuse AST 179 and ALT 102 on admission Liver enzymes improved with AST 103 and ALT 71 Continue monitor Liver enzymes Alcohol withdrawal seizure Pt not on Keppra anymore Follow with [facility] Neurology Continue seizure protocol Thrombocytopenia Platelet 116 today No sign of bleeding Continue monitor Depression PTSD Not on any meds Pt said that he would like to deal with his alcohol abuse first before he starts seeing psych Anxiety Pt is asking for Ativan Advised pt that he will need to start on a maintenance medication such as SSRI to manage his anxiety Will start on Hydroxyzine 10mg TID prn DVT px will encourage pt to ambulate CODE status Full code Admission and Anticipated Discharge Date Admission Date: November 16, 2019 Subjective Pt was seen and examined Lying in bed with no distress Pt said that he feels fine He tolerated his diet He denies any hallucination, chest pain and SOB Physical Exam Physical Exam: General- No acute distress Head- atraumatic Eyes- PERRL, EOMI, ENT- oropharynx clear Neck- supple, no JVD Lungs- clear to auscultation Heart- regular rhythm; no murmur Abdomen- normal bowel sounds, soft, nontender Extremities- no calf tenderness Neuro- alert, oriented x 3; PERRL, EOMI; no facial palsy; no dysarthria, +mild tremor Skin- warm & dry Results & Data ([facility]) Vital Signs (Past 12 Hours) Vital Signs Temp Pulse Pulse Pulse Resp BP BP 11/17/19 12:00 37.1 C 87 18 139/85 11/17/19 08:00 37.1 C 97 H 18 134/81 11/17/19 07:00 93 H 11/17/19 04:49 36.8 C 95 H 18 129/72 11/17/19 04:47 92 H Pulse Ox 11/17/19 12:00 100 11/17/19 08:00 99 11/17/19 07:00 11/17/19 04:49 98 11/17/19 04:47
[2019-11-18] MEDS: SODIUM CHLORIDE 0.9% 1000ML 1,000 ML IV SCH (04:58)
[2019-11-18] MEDS: GABAPENTIN 600 MG TAB PO SCH ×2 (06:28→14:23)
[2019-11-18] MEDS: ONDANSETRON INJ 2 MG/ML 2 ML VIAL IV PRN ×2 (08:10→16:44)
[2019-11-18] MEDS: FOLIC ACID 1 MG in SYRINGE 9.8 ML IV SCH (08:13)
[2019-11-18] MEDS: THIAMINE HCL 100 MG in SYRINGE 9 ML IV SCH (08:13)
[2019-11-18] MEDS: CHECK CLONIDINE PATCH PLACEMENT SCH ×2 (08:13→15:41)
[2019-11-18] MEDS: hydrOXYzine HCl 10 MG TAB PO PRN (08:20)
[2019-11-18] MEDS: LORazepam 1 MG/2 ML VIAL IV PRN ×2 (09:00→20:57)
[2019-11-18 09:14] LABS: Alanine Aminotransferase 69 U/L (12-78); Albumin Level 3.9 gm/dl (3.4-5.0); Aspartate Aminotransferase 80 U/L (15-37); Blood Urea Nitrogen 6 mg/dl (7-18); Calcium 8.9 mg/dl (8.5-10.1); Carbon Dioxide 26 mmol/L (21-32); Chloride 103 mmol/L (98-107); Creatinine Clr Calc Pharmacy 187.8 ml/min; Est GFR (African American) > 150.0; Est GFR (Non-African American) 134.4; Glucose 81 mg/dl (70-99); Potassium 3.3 mmol/L (3.5-5.1); Sodium 137 mmol/L (136-145)
[2019-11-18 09:17] LABS: Albumin Globulin Ratio 1.3 (0.9-2); Alkaline Phosphatase 82 U/L (45-117); Bilirubin,Total 1.1 mg/dl (0.2-1); Globulin 3.1 gm/dl (2.5-4.0)
[2019-11-18] MEDS ORDERED: POTASSIUM CHLORIDE 20 MEQ TABCR PO STA (09:36)
[2019-11-18] MEDS: LORazepam 2 MG/4 ML VIAL IV PRN (15:10)
--- NOTE | 2019-11-18 16:27 | Hospitalist Progress Note ---
Date of Service November 18, 2019 Assessment & Plan (1) Alcohol abuse: Presented to the ER to treat for alcohol withdrawal before going to inpatient alcohol rehab Hx of Alcohol withdrawal and alcohol withdrawal seizure in the past Alcohol level 387 on admission UDS negative Received Ativan 2 mg IV x2 in the ER and Banana beg Continue alcohol withdrawal protocol with gabapentin and ativan Will monitor closely for alcohol withdrawal and DT Continue Thiamine and folic acid Counseling on alcohol cessation Plan to go to alcohol inpatient rehab Elevated Liver enzymes Possible related to alcohol abuse AST 179 and ALT 102 on admission Liver enzymes continue to improve with AST 103-->80 and ALT 71--> 69 Continue monitor Liver enzymes Alcohol withdrawal seizure Pt not on Keppra anymore Follow with [facility] Neurology Continue seizure protocol Thrombocytopenia Platelet 116 No sign of bleeding Continue monitor Hypokalemia K 3.3 today K replaced Monitor BMP Depression PTSD Not on any meds Pt said that he would like to deal with his alcohol abuse first before he starts seeing psych Anxiety Pt is asking for Ativan Advised pt that he will need to start on a maintenance medication such as SSRI to manage his anxiety Continue Hydroxyzine 10mg TID prn High Sexual activity risk Pt is very anxious to check him for STD Will check HIV, Hep C, Gonorrhea DVT px will encourage pt to ambulate CODE status Full code Admission and Anticipated Discharge Date Admission Date: November 16, 2019 Subjective Pt was seen and examined Sitting in bed with no distress Pt is very anxious about to check his HIV status and other STDs Pt said that he had very high sexual behavior and did not use protection Pt said that he is very anxious, but does not want to see psych in this admission Denies any suicidal thought, hallucination, psychosis, chest pain and SOB Physical Exam Physical Exam: General- No acute distress Head- atraumatic Eyes- PERRL, EOMI, no nystagmus , ENT- oropharynx clear Neck- supple, no JVD Lungs- clear to auscultation Heart- regular rhythm; no murmur Abdomen- normal bowel sounds, soft, nontender Extremities- no calf tenderness Neuro- alert, oriented x 3; PERRL, EOMI; no facial palsy; no dysarthria, mild tremor Skin- warm & dry Results & Data ([facility]) Vital Signs (Past 12 Hours) Vital Signs Temp Pulse Pulse Resp BP BP Pulse Ox 11/18/19 15:00 36.4 C L 81 18 138/98 100 11/18/19 14:20 93 H 11/18/19 11:00 36.8 C 81 18 137/96 99 11/18/19 09:00 37.2 C 86 18 127/76 100 11/18/19 07:46 36.3 C L 66 18 137/98 100 11/18/19 07:00 69
[2019-11-19] MEDS: CHECK CLONIDINE PATCH PLACEMENT SCH ×3 (00:11→15:36)
[2019-11-19] MEDS: GABAPENTIN 600 MG TAB PO SCH ×2 (00:11→12:05)
[2019-11-19] MEDS: hydrOXYzine HCl 10 MG TAB PO PRN ×3 (00:12→18:02)
[2019-11-19] MEDS: THIAMINE HCL 100 MG in SYRINGE 9 ML IV SCH (08:22)
[2019-11-19] MEDS: FOLIC ACID 1 MG in SYRINGE 9.8 ML IV SCH (08:22)
[2019-11-19 09:46] LABS: Albumin Level 4.3 gm/dl (3.4-5.0); BUN Creatinine Ratio 10.4 (10-20); Calcium 9.8 mg/dl (8.5-10.1); Creatinine Clr Calc Pharmacy 155.6 ml/min; Est GFR (African American) 142.4; Est GFR (Non-African American) 122.9; Potassium 3.6 mmol/L (3.5-5.1)
[2019-11-19 09:49] LABS: Albumin Globulin Ratio 1.3 (0.9-2); Globulin 3.4 gm/dl (2.5-4.0); Total Protein 7.7 gm/dl (6.4-8.2)
[2019-11-19] MEDS: LORazepam 2 MG/4 ML VIAL IV PRN (12:13)
--- NOTE | 2019-11-19 15:49 | Hospitalist Progress Note ---
Date of Service November 19, 2019 Assessment & Plan (1) Alcohol abuse: Presented to the ER to treat for alcohol withdrawal before going to inpatient alcohol rehab Hx of Alcohol withdrawal and alcohol withdrawal seizure in the past Alcohol level 387 on admission UDS negative Received Ativan 2 mg IV x2 in the ER and Banana beg Continue alcohol withdrawal protocol with gabapentin and ativan Will monitor closely for alcohol withdrawal and DT Continue Thiamine and folic acid Counseling on alcohol cessation Pt changed his mind about to go to alcohol inpatient rehab He said that he would not go anymore because he would affect his job I explained to him that going to rehab will be a good option because few months ago he was here for alcohol withdrawal Elevated Liver enzymes Possible related to alcohol abuse AST 179 and ALT 102 on admission Liver enzymes increased today with 159 and ALT 114 Continue monitor Liver enzymes Alcohol withdrawal seizure Pt not on Keppra anymore Follow with [facility] Neurology Continue seizure protocol Thrombocytopenia Platelet 116 No sign of bleeding Continue monitor Hypokalemia K 3.6 today K replaced Monitor BMP Depression PTSD Not on any meds Pt said that he would like to deal with his alcohol abuse first before he starts seeing psych Anxiety Pt is asking for Ativan Advised pt that he will need to start on a maintenance medication such as SSRI to manage his anxiety Continue Hydroxyzine 10mg TID prn High Sexual activity risk Pt is very anxious to check him for STD HIV negative Hep C and Gonorrhea pending DVT px will encourage pt to ambulate CODE status Full code Admission and Anticipated Discharge Date Admission Date: November 16, 2019 Subjective Pt was seen and examined Sitting in bed with no distress Pt said that he is feeling much better He said that he changed his mind about to go to inpatient alcohol rehab He said that he did not know that he would have to stay for 30days there Denies any chest pain, palpitation, dizziness and SOB Physical Exam Physical Exam: General- No acute distress Head- atraumatic Eyes- PERRL, EOMI, no nystagmus , ENT- oropharynx clear Neck- supple, no JVD Lungs- clear to auscultation Heart- regular rhythm; no murmur Abdomen- normal bowel sounds, soft, nontender Extremities- no calf tenderness Neuro- alert, oriented x 3; PERRL, EOMI; no facial palsy; no dysarthria, mild tremor Skin- warm & dry Results & Data ([facility]) Vital Signs (Past 12 Hours) Vital Signs Temp Pulse Pulse Resp BP Pulse Ox 11/19/19 15:30 36.9 C 98 H 18 124/80 100 11/19/19 14:20 106 H 11/19/19 12:22 36.8 C 145 H 20 127/64 11/19/19 07:26 36.4 C L 68 16 116/82 96 11/19/19 07:00 58 L
[2019-11-20] MEDS: CHECK CLONIDINE PATCH PLACEMENT SCH ×2 (00:43→10:56)
[2019-11-20] MEDS: hydrOXYzine HCl 10 MG TAB PO PRN ×2 (02:11→08:05)
[2019-11-20] MEDS ORDERED: THIAMINE HCL 100 MG TAB PO SCH (09:00)
[2019-11-20] MEDS ORDERED: FOLIC ACID 1 MG TAB PO SCH (09:00)
[2019-11-20 09:26] LABS: Albumin Level 4.2 gm/dl (3.4-5.0); BUN Creatinine Ratio 10.1 (10-20); Calcium 9.8 mg/dl (8.5-10.1); Creatinine Clr Calc Pharmacy 149.6 ml/min; Est GFR (African American) 142.4; Est GFR (Non-African American) 122.9; Potassium 3.3 mmol/L (3.5-5.1)
[2019-11-20 09:29] LABS: Albumin Globulin Ratio 1.2 (0.9-2); Bilirubin,Total 1.1 mg/dl (0.2-1); Globulin 3.5 gm/dl (2.5-4.0); Total Protein 7.7 gm/dl (6.4-8.2)
[2019-11-20] MEDS ORDERED: POTASSIUM CHLORIDE 20 MEQ TABCR PO STA (09:54)
[2019-11-20] MEDS ORDERED: GABAPENTIN 600 MG TAB PO SCH (12:00)
[2019-11-20] MEDS ORDERED: PROPRANOLOL HCL 10 MG TAB PO SCH (13:15)
[2019-11-20 13:49] LABS: Chlamydia Trach RNA NOT DETECTED (NOT DETECTED); GC (Neis gonorrhoeae) RNA NOT DETECTED (NOT DETECTED)
--- NOTE | 2019-11-20 14:05 | Hospitalist Progress Note ---
Date of Service November 20, 2019 Assessment & Plan (1) Alcohol abuse: Presented to the ER to treat for alcohol withdrawal before going to inpatient alcohol rehab Hx of Alcohol withdrawal and alcohol withdrawal seizure in the past Alcohol level 387 on admission UDS negative Received Ativan 2 mg IV x2 in the ER and Banana beg Continue alcohol withdrawal protocol with gabapentin and ativan Will monitor closely for alcohol withdrawal and DT Continue Thiamine and folic acid Counseling on alcohol cessation Pt changed his mind about to go to alcohol inpatient rehab He said that he would not go anymore because he would affect his job I explained to him that going to rehab will be a good option because few months ago he was here for alcohol withdrawal He said that he would be staying with his grandma Elevated Liver enzymes Possible related to alcohol abuse AST 179 and ALT 102 on admission Liver enzymes elevated with AST 125 and ALT 125 Pt would like to go home today He said that he would repeat his LFT with his PCP Continue monitor Liver enzymes Avoid hepatotoxic agents Alcohol withdrawal seizure Pt not on Keppra anymore Follow with [facility] Neurology Continue seizure protocol Thrombocytopenia Platelet 116 No sign of bleeding Continue monitor Hypokalemia K 3.6 today K replaced Monitor BMP Hypokalemia K 3.3 K replaced Advised pt to increase k supplement in diet Depression PTSD Not on any meds Pt said that he would like to deal with his alcohol abuse first before he starts seeing psych Anxiety Pt is asking for Ativan Advised pt that he will need to start on a maintenance medication such as SSRI to manage his anxiety Continue Hydroxyzine 10mg TID prn Will add propranolol 10mg BID High Sexual activity risk Pt is very anxious to check him for STD Hep C, HIV and Gonorrhea and Chlamydia negative Counseling patient on safe sex DVT px will encourage pt to ambulate CODE status Full code Disposition Refused to go to inpatient alcohol rehab Discharge home today Admission and Anticipated Discharge Date Admission Date: November 16, 2019 Subjective Pt was seen and examined Lying in bed with no distress Pt said that he feels good He was doing a tele conference with his job this morning He said that he feels good to be discharged today Pt continues to refuse to go to rehab He said that he is going to stay with his grandma His liver enzymes mildly elevated and does not want to stay for another night to repeat it He said that he would re-check his liver enzymes with his PCP Denies any chest pain, palpitation, hallucination, psychosis and suicidal thought Physical Exam Physical Exam: General- No acute distress Head- atraumatic Eyes- PERRL, EOMI, no nystagmus , ENT- oropharynx clear Neck- supple, no JVD Lungs- clear to auscultation Heart- regular rhythm; no murmur Abdomen- normal bowel sounds, soft, nontender Extremities- no calf tenderness Neuro- alert, oriented x 3; PERRL, EOMI; no facial palsy; no dysarthria, mild tremor Skin- warm & dry Results & Data ([facility]) Vital Signs (Past 12 Hours) Vital Signs Temp Pulse Pulse Resp BP Pulse Ox 11/20/19 11:54 36.6 C 111 H 18 131/82 98 11/20/19 07:35 74 11/20/19 07:23 36.5 C 84 20 112/79 100 11/20/19 03:53 36.9 C 61 17 111/79 100 11/20/19 01:59 88
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
[2019-11-23] MEDS ORDERED: cloNIDine HCL 0.3 MG/24 HR TRANSDERM SYS TD SCH (16:00)
== END 2019-11-20 15:24 | disposition home or self-care (01) | DRG 897 ==
LOC: ED 14:35 → 2N 18:25

== ENCOUNTER 2021-04-24 21:26 | Observation (INO) ==
[2021-04-24] MEDS ORDERED: ONDANSETRON INJ 2 MG/ML 2 ML VIAL IV STA (21:42)
[2021-04-24] MEDS ORDERED: SODIUM CHLORIDE 0.9% 1000ML 1,000 ML IV SCH (21:45)
[2021-04-24] MEDS ORDERED: THIAMINE HCL 200 MG in SODIUM CHLORIDE 0.9% 50 ML IV STA (21:46)
[2021-04-24] MEDS ORDERED: LORazepam 1 MG/2 ML VIAL IV STA ×2 (21:46→23:27)
--- NOTE | 2021-04-24 22:00 | XRay Report ---
SINGLE VIEW CHEST CLINICAL HISTORY: Generalized weakness. FINDINGS: 2 AP, portable, upright chest radiographs are compared to study dated 07/06/2019. The patien t's head obscures the apices. The cardiomediastinal silhouette is unremarkable. The lungs and pleural spaces are clear. No pneumothorax is seen. The bony thorax is grossly intact. Cholecystectomy clips are noted in the right upper quadrant. IMPRESSION: No active disease in the chest. ACT 112: Negative or not required by law. Electronically signed by: Rajan Grove M.D. 04/24/2021 9:59 PM
[2021-04-24 22:02] LABS: Basophils # (auto) 0.01 K/uL (0-0.2); Basophils % (auto) 0.1 %; Hematocrit (blood only) 45.9 % (42-52); Hemoglobin 16.2 g/dL (14.0-18.0); Immature Granulocytes # (auto) 0.01 K/uL (0.00-0.02); Immature Granulocytes % (auto) 0.1 %; Lymphocytes # (auto) 0.87 K/uL (1.2-3.4); Lymphocytes % (auto) 9.1 %; Mean Corpuscular Hemoglobin 33.6 pg (25-34); Mean Corpuscular Hgb Conc 35.3 g/dL (32-36); Mean Corpuscular Volume 95.2 fL (80-100); Mean Platelet Volume 9.6 fL (7.4-10.4); Monocytes # (auto) 0.61 K/uL (0.11-0.59); Monocytes % (auto) 6.4 %; Neutrophils # (auto) 8.06 K/uL (1.4-6.5); Neutrophils % (auto) 84.3 %; Platelet Count 134 K/uL (130-400); RDW Coefficient of Variation 15.3 % (11.5-14.5); RDW Standard Deviation 52.8 fL (36.4-46.3); Red Blood Count 4.82 M/uL (4.7-6.1); White Blood Count 9.56 K/uL (4.8-10.8)
[2021-04-24 22:13] LABS: INR 1.1 (0.9-1.1); Partial Thromboplastin Ratio 0.9; Partial Thromboplastin Time 23.9 Seconds (21.0-31.0); Prothrombin Time 10.9 Seconds (9.0-12.0)
--- NOTE | 2021-04-24 22:15 | Emergency Department Note ---
Impression & Plan Alcohol withdrawal, Alcohol abuse, Vomiting, Hypomagnesemia, Abnormal LFTs ED Provider Note NAME: SERJIO CABA AGE: 25 SEX: M : 1995 ARRIVES VIA: Walk-In INFORMANT: Patient, ED PROVIDER(S): Gregorio Bustamante DO CHIEF COMPLAINT: Vomiting HPI: The patient is a 25-year-old male who presented to the emergency department for an evaluation of nausea vomiting. The patient has been "in bed for the last 3 days" with severe nausea and vomiting symptoms. The patient has a history of alcohol abuse. He has had a history of alcohol withdrawal as well as alcohol withdrawal seizures in the past. He states he last had any alcoholic beverages approximately 2 to 3 days ago. He denies having any fevers. He does complain of significant nausea and vomiting. He has severe epigastric pain. He does not remember having a history of pancreatitis in the past. He denies having any lower extremity swelling or pain. Has had no recent trauma. He denies having any cough or hemoptysis. The patient states his symptoms are moderate to severe. ROS: See above HPI for pertinent positives & negatives. A total of 10 systems reviewed and were otherwise negative. PAST MEDICAL HISTORY: See Below PAST SURGICAL HISTORY: See Below FAMILY HISTORY: See Below SOCIAL HISTORY: See Below HOME MEDICATIONS: See Below ALLERGIES: See Below VITALS: See Below PHYSICAL EXAMINATION: GENERAL: The patient is awake and alert. The patient is very anxious appearing and appears to be uncomfortable. EYES: The conjunctivae are injected bilaterally.. The pupils are round and reactive. EARS, NOSE, MOUTH AND THROAT: The nose is without any evidence of any deformity. Mucous membranes are dry. NECK: The neck is nontender and supple. RESPIRATORY: Normal respiratory effort is noted there is no evidence of wheezing rhonchi or rales CARDIOVASCULAR: Tachycardic and regular heart sounds were noted to auscultation. There was no definite murmur. GASTROINTESTINAL: The abdomen is moderately distended. There is diffuse tender ness to palpation but no guarding or rigidity. MUSCULOSKELETAL/EXTREMITIES: There is no evidence of gross deformity full range of motion is noted in the hips and shoulders. SKIN: There is no obvious evidence of any rash. There are no petechiae, pallor or cyanosis noted. NEUROLOGIC: Patient is awake alert and oriented x3 strength is symmetric patellar reflexes are 2+ bilaterally MEDICAL DECISION MAKING: The patient is a 25-year-old male who presented to the emergency department for an evaluation of nausea vomiting. The patient has a history of alcohol abuse and appeared to be in withdrawal upon arrival to the emergency department. I discussed the patient's laboratory and radiographic studies with him. He was treated with IV fluids IV antiemetics IV thiamine IV magnesium IV Protonix IV Ativan and IV Pepcid in the emergency department. He was reevaluated multiple times. He was still having significant tremors but his blood pressure and pulse rate improved significantly. Because of the patient's history I [facility] evaluate the patient in the emergency department for further management and disposition. Triage Nursing notes reviewed. Prior medical records reviewed Vital Signs: reviewed and remarkable for tachycardia and hypertension. Differential diagnosis: Gastroenteritis, food borne illness, infections, appendicitis, diverticulitis, inflammatory bowel disease, obstruction, GI bleed, biliary pathology, volvulus, as well as other pathologies. ER treatment provided: See below Diagnostics interpreted by me: ECG: EKG was obtained in the emergency department. My interpretation is sinus tachycardia at 146 bpm. There was no ectopy. Diffuse ST segment abnormalities were noted. This was compared to a tracing from November 152019. No sign ificant changes were noted. Cardiac Monitoring: An order was placed for continuous cardiac monitoring. The monitor shows a rate of 115 bpm with sinus tachycardia rhythm. Laboratory studies: As stated above and show below. Imaging studies: See below Consultation(s): I discussed this case with Dr. Ricci who [facility] They have agreed to evaluate the patient in the emergency department. Past Med/Surg History Medical History (Updated 04/25/21 @ 00:22 by Gregorio Bustamante DO) Alcohol abuse Alcohol withdrawal seizure Hematoma TONGUE Post traumatic stress disorder Thrombocytopenia PT UNAWARE Surgical History Hx of unilateral orchiectomy S/P cholecystectomy Family History Father Unknown family medical history Mother Unknown family medical history Denies family history of Diabetes Heart disease Social History Smoking Status: Never smoker Second Hand Exposure: No; Hx Alcohol Use: Yes Alcohol type: hard liquor Alcohol Intake Frequency Comment: History of heavy alcohol use; last drink 06/27 Hx Substance Use: No Preferred Language: Burmese Communication Ability: Effective Visual Impairment: No Limitations Financial Coach Required: No Beliefs That Will Affect Care: None marital status: Single Current Living Situation: Alone current occupational status: 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 Feels Safe at Home: Yes Assistive Devices: None Allergies Allergies Allergy/AdvReac Type Severity Reaction Status Date / Time blue dye AdvReac Vomiting Unverified 11/16/19 16:43 levetiracetam AdvReac overly Unverified 11/16/19 16:43 emotional red dye AdvReac Vomiting Unverified 11/16/19 16:43 Home Meds Home Medications Medication Instructions Recorded Confirmed No Known Home Medications 11/16/19 11/16/19 Previous Rx's Medication Instructions Recorded folic acid 1 mg tablet 1 mg PO DAILY #30 tab 11/20/19 hydroxyzine HCl 10 mg tablet 10 mg PO Q6H PRN #30 tab 11/20/19 thiamine HCl (vitamin B1) 100 mg 100 mg PO DAILY #30 tab 11/20/19 tablet (Vitamin B-1) Results & Data (ED) Vital Signs Vital Signs - 24 hr 04/24/21 21:33 04/24/21 21:45 04/24/21 22:00 Temperature 36.8 C Temperature Source Oral Pulse Rate 187 H 134 H 119 H Pulse Rate from SpO2 Sensor 139 H 116 H Respiratory Rate 28 H 19 16 Respiratory Depth Normal Blood Pressure 196/108 H 153/95 H 131/91 Blood Pressure Mean 137 114 104 Pulse Oximetry 100 99 98 Oxygen Delivery Method Room Air Room Air Sepsis Recent Fever Within 48 Hours No Sepsis New/Unexplained Change in Mental Status No Sepsis Action Taken by Nursing Physician Notified 04/24/21 22:32 Temperature Temperature Source Pulse Rate 115 H Pulse Rate from SpO2 Sensor 116 H Respiratory Rate 21 Respiratory Depth Blood Pressure Blood Pressure Mean Pulse Oximetry 99 Oxygen Delivery Method Sepsis Recent Fever Within 48 Hours Sepsis New/Unexplained Change in Mental Status Sepsis Action Taken by [facility] Medications Current Medication List: was personally reviewed by me Laboratory Data Attestation: I reviewed the patient's lab results. Result diagrams: 04/24/21 21:45 04/24/21 21:45 Lab Results 04/24/21 04/24/21 04/24/21 Range/Units 21:45 21:45 21:45 WBC 9.56 (4.8-10.8) K/uL RBC 4.82 (4.7-6.1) M/uL Hgb 16.2 (14.0-18.0) g/dL Hct 45.9 (42-52) % MCV 95.2 (80-100) fL MCH 33.6 (25-34) pg MCHC 35.3 (32-36) g/dL RDW Std Deviation 52.8 H (36.4-46.3) fL RDW Coeff of Phill 15.3 H (11.5-14.5) % Plt Count 134 (130-400) K/uL MPV 9.6 (7.4-10.4) fL Immature Gran % (Auto) 0.1 % Neut % (Auto) 84.3 % Lymph % (Auto) 9.1 % [place] % (Auto) 6.4 % Eos % (Auto) 0.0 % Baso % (Auto) 0.1 % Neut # (Auto) 8.06 H (1.4-6.5) K/uL Lymph # (Auto) 0.87 L (1.2-3.4) K/uL [place] # (Auto) 0.61 H (0.11-0.59) K/uL Eos # (Auto) 0.00 (0-0.5) K/uL Baso # (Auto) 0.01 (0-0.2) K/uL Immature Gran # (Auto) 0.01 (0.00-0.02) K/uL PT 10.9 (9.0-12.0) Seconds INR 1.1 (0.9-1.1) APTT 23.9 (21.0-31.0) Seconds PTT Ratio 0.9 Sodium 137 (136-145) mmol/L Potassium 3.2 L (3.5-5.1) mmol/L Chloride 100 (98-107) mmol/L Carbon Dioxide 24 (21-32) mmol/L Anion Gap 13.0 H (3-11) BUN 6 L (7-18) mg/dl Creatinine 0.87 (0.6-1.4) mg/dl Est Cr Clr Drug Dosing Not Reportable Est GFR ( Amer) 138.1 ml/min Est GFR (Non-Af Amer) 119.1 ml/min BUN/Creatinine Ratio 7.3 L (10-20) Glucose 142 H (70-99) mg/dl Calcium 9.1 (8.5-10.1) mg/dl Magnesium 1.1 L (1.8-2.4) mg/dl Total Bilirubin 1.9 H (0.2-1) mg/dl AST 161 H (15-37) U/L ALT 94 H (12-78) U/L Alkaline Phosphatase 199 H (45-117) U/L Total Creatine Kinase 165 (39-308) U/L Troponin I < 0.015 (0-0.045) ng/ml Total Protein 6.7 (6.4-8.2) gm/dl Albumin 3.8 (3.4-5.0) gm/dl Globulin 2.9 (2.5-4.0) gm/dl Albumin/Globulin Ratio 1.3 (0.9-2) TSH 1.860 (0.300-4.500) uIu/ml Ethyl Alcohol mg/dL (0-3) mg/dl COVID-19 Eval Order 04/24/21 04/24/21 Range/Units 22:28 23:27 WBC (4.8-10.8) K/uL RBC (4.7-6.1) M/uL Hgb (14.0-18.0) g/dL Hct (42-52) % MCV (80-100) fL MCH (25-34) pg MCHC (32-36) g/dL RDW Std Deviation (36.4-46.3) fL RDW Coeff of Phill (11.5-14.5) % Plt Count (130-400) K/uL MPV (7.4-10.4) fL Immature Gran % (Auto) % Neut % (Auto) % Lymph % (Auto) % [place] % (Auto) % Eos % (Auto) % Baso % (Auto) % Neut # (Auto) (1.4-6.5) K/uL Lymph # (Auto) (1.2-3.4) K/uL [place] # (Auto) (0.11-0.59) K/uL Eos # (Auto) (0-0.5) K/uL Baso # (Auto) (0-0.2) K/uL Immature Gran # (Auto) (0.00-0.02) K/uL PT (9.0-12.0) Seconds INR (0.9-1.1) APTT (21.0-31.0) Seconds PTT Ratio Sodium (136-145) mmol/L Potassium (3.5-5.1) mmol/L Chloride (98-107) mmol/L Carbon Dioxide (21-32) mmol/L Anion Gap (3-11) BUN (7-18) mg/dl Creatinine (0.6-1.4) mg/dl Est Cr Clr Drug Dosing Est GFR ( Amer) ml/min Est GFR (Non-Af Amer) ml/min BUN/Creatinine Ratio (10-20) Glucose (70-99) mg/dl Calcium (8.5-10.1) mg/dl Magnesium (1.8-2.4) mg/dl Total Bilirubin (0.2-1) mg/dl AST (15-37) U/L ALT (12-78) U/L Alkaline Phosphatase (45-117) U/L Total Creatine Kinase (39-308) U/L Troponin I (0-0.045) ng/ml Total Protein (6.4-8.2) gm/dl Albumin (3.4-5.0) gm/dl Globulin (2.5-4.0) gm/dl Albumin/Globulin Ratio (0.9-2) TSH (0.300-4.500) uIu/ml Ethyl Alcohol mg/dL < 3.0 (0-3) mg/dl COVID-19 Eval Order Covid19 at [facility] Administered Medications Magnesium Sulfate/Dextrose (Magnesium Sulfate / D5w) 1 gm in 100 mls @ 100 mls/hr IV Q1H SULMA Stop: 04/25/21 01:08 Last Admin: 04/24/21 23:28 Dose: 100 mls/hr Documented by: [id number] Sodium Chloride (Nss 1000ml) 1,000 mls @ 999 mls/hr IV .Q1H1M ONE Stop: 04/25/21 00:27 Last Admin: 04/24/21 23:38 Dose: 999 mls/hr Documented by: [id number] Discontinued Medications Sodium Chloride (Nss 1000ml) 1,000 mls @ 999 mls/hr IV .Q1H1M SULMA Stop: 04/24/21 22:45 Last Infusion: 04/24/21 22:53 Dose: 0 mls/hr Documented by: [id number] Admin: 04/24/21 21:47 Dose: 999 mls/hr Documented by: [id number] Lorazepam (Ativan) 1 mg in 2 mls @ 2 mls/min IV NOW STA Stop: 04/24/21 21:47 Last Admin: 04/24/21 21:55 Dose: 2 mls/min Documented by: [id number] Thiamine HCl 200 mg/ Sodium (Chloride) 52 mls @ 208 mls/hr IV NOW STA Stop: 04/24/21 22:00 Last Infusion: 04/24/21 22:27 Dose: 0 mls/hr Documented by: [id number] Admin: 04/24/21 22:08 Dose: 208 mls/hr Documented by: [id number] Pantoprazole Sodium 40 mg/ (Syringe) 10 mls @ 5 mls/min IV NOW ONE Stop: 04/24/21 22:19 Last Admin: 04/24/21 22:47 Dose: 5 mls/min Documented by: [id number] Famotidine (Pepcid 20mg Iv Push) 20 mg in 5 mls @ 2.5 mls/min IV NOW STA Stop: 04/24/21 22:19 Last Admin: 04/24/21 22:27 Dose: 2.5 mls/min Documented by: [id number] Lorazepam (Ativan) 1 mg in 2 mls @ 2 mls/min IV NOW STA Stop: 04/24/21 23:28 Last Admin: 04/24/21 23:37 Dose: 2 mls/min Documented by: [id number] Ondansetron HCl (Ondansetron Inj 2 Mg/Ml 2 Ml Vial) 4 mg IV NOW STA Stop: 04/24/21 21:43 Last Admin: 04/24/21 21:55 Dose: 4 mg Documented by: [id number] Imaging Data Radiologist's Impression: Chest X-Ray 04/24/21 21:43 SINGLE VIEW CHEST CLINICAL HISTORY: Generalized weakness. FINDINGS: 2 AP, portable, upright chest radiographs are compared to study dated 07/06/2019. The patient's head obscures the apices. The cardiomediastinal silhouette is unremarkable. The lungs and pleural spaces are clear. No pneumothorax is seen. The bony thorax is grossly intact. Cholecystectomy clips are noted in the right upper quadrant. IMPRESSION: No active disease in the chest. ACT 112: Negative or not required by law. Electronically signed by: Rajan Grove M.D. 04/24/2021 9:59 PM Discharge Plan Visit Data Chief Complaint: Illness Stated Complaint: SERVERE DIAHREA AND VOMITING, FEELS LIKE A SEIZURE ED Provider: Gregorio Bustamante Discharge Problem: Alcohol withdrawal, Alcohol abuse, Vomiting, Hypomagnesemia, Abnormal LFTs Patient Disposition: Being Evaluated by Hospitalist Condition: Good Forms Stand Alone Forms: My [employer] Prescriptions Prescriptions: No Action No Known Home Medications RF: 0 hydroxyzine HCl 10 mg Tablet 10 mg PO Q6H PRN (Reason: anxiety) Qty: 30 RF: 0 thiamine HCl (vitamin B1) [Vitamin B-1] 100 mg Tablet 100 mg PO DAILY Qty: 30 RF: 0 folic acid 1 mg Tablet 1 mg PO DAILY Qty: 30 RF: 0 Referrals Referrals: Adrian Stephen DO [Outside Practitioners] -
[2021-04-24] MEDS ORDERED: PANTOprazole 40 MG in SYRINGE 0 ML IV ONE (22:18)
[2021-04-24] MEDS ORDERED: FAMOTIDINE 20MG IV PUSH 20 MG/5 ML SYR IV STA (22:18)
[2021-04-24 22:20] LABS: Alanine Aminotransferase 94 U/L (12-78); Albumin Level 3.8 gm/dl (3.4-5.0); Aspartate Aminotransferase 161 U/L (15-37); BUN Creatinine Ratio 7.3 (10-20); Blood Urea Nitrogen 6 mg/dl (7-18); Calcium 9.1 mg/dl (8.5-10.1); Carbon Dioxide 24 mmol/L (21-32); Chloride 100 mmol/L (98-107); Est GFR (African American) 138.1 ml/min; Est GFR (Non-African American) 119.1 ml/min; Glucose 142 mg/dl (70-99); Magnesium 1.1 mg/dl (1.8-2.4); Potassium 3.2 mmol/L (3.5-5.1); Sodium 137 mmol/L (136-145)
[2021-04-24 22:30] LABS: Albumin Globulin Ratio 1.3 (0.9-2); Alkaline Phosphatase 199 U/L (45-117); Bilirubin,Total 1.9 mg/dl (0.2-1); Creatine Kinase 165 U/L (39-308); Globulin 2.9 gm/dl (2.5-4.0); Total Protein 6.7 gm/dl (6.4-8.2); Troponin I < 0.015 ng/ml (0-0.045)
[2021-04-24] MEDS ORDERED: SODIUM CHLORIDE 0.9% 1000ML 1,000 ML IV ONE (23:27)
[2021-04-24] MEDS: MAGNESIUM SULFATE / D5W 1 GM/100 ML BAG IV SCH (23:28)
[2021-04-25] MEDS ORDERED: POTASSIUM CHLORIDE / WTR 10 MEQ/100 ML PLCT IV STA (00:30)
[2021-04-25] MEDS: MAGNESIUM SULFATE / D5W 1 GM/100 ML BAG IV SCH (00:50)
[2021-04-25] MEDS ORDERED: LORazepam 1.5 MG/3 ML VIAL IV STA (02:03)
[2021-04-25] MEDS ORDERED: GABAPENTIN 600 MG TAB PO ONE (02:04)
[2021-04-25 02:13] LABS: Appearance Urine Clear (Clear); Bilirubin Urine Negative (Negative); Blood Urine Negative (Negative); Color Urine Yellow; Glucose Urine UA Negative (Negative); Ketones Urine 1+ (Negative); Leukocyte Esterase Urine Negative (Negative); Nitrite Urine Negative (Negative); Protein Urine Negative (Negative); Specific Gravity Urine 1.011 (1.000-1.030); Urobilinogen Urine Positive (Negative); pH Urine 8.5 (4.5-7.5)
--- NOTE | 2021-04-25 02:20 | History and Physical Report ---
DATE OF ADMISSION: 04/25/2021. CHIEF COMPLAINT: Nausea, vomiting, abdominal discomfort. HISTORY OF PRESENT ILLNESS: A 25-year-old male with past medical history significant for alcohol abuse, alcohol withdrawal seizures, history of thrombocytopenia, history of elevated LFTs, presents with nausea and vomiting for last 3 days. The patient states in the last 3 days he is vomiting a lot and having some abdominal discomfort and also diarrhea. Denies any blood in the stool or black stool. Denies any blood in the vomitus. The patient is somewhat shaky, but the patient states he is only drinking 1 glass of wine or 1 glass of vodka every day, not much, and since last 3 days is not drinking because of nausea, vomiting. Having headaches and sore throat from vomiting and some redness in the eyes because of the straining. Denies any dizziness, no blurred vision, no earache, no runny nose, no sore throat, no cough, no fevers, no shortness of breath, no chest pain. Normal bladder movements. ALLERGIES: BLUE DYE, KEPPRA, RED DYE. PAST MEDICAL HISTORY: As mentioned above. PAST SURGICAL HISTORY: Dental surgery, EGD, ERCPs, laparoscopic cholecystectomy, reduction of testis torsion. MEDICATIONS: Currently not taking any medications. FAMILY HISTORY: Significant for sister has kidney disease, brother has sustained tachycardia. SOCIAL HISTORY: Single, lives alone. Denies any smoking. In the last admission, admitted for heavy alcohol use, currently saying he only drinks 1 glass of vodka and 1 glass of wine daily. No drug use as per records. REVIEW OF SYSTEMS: As per HPI. Rest of the review of systems is negative. PHYSICAL EXAMINATION: GENERAL: The patient is of moderate build, not in acute distress. Shaky VITAL SIGNS: Temperature 36.8, pulse 115, respiratory rate 21, blood pressure 131/91, oxygen 99% on room air. HEENT: Pupils equal, round and reactive to light. Oral mucosa moist. NECK: No JVD, no neck masses. CARDIOVASCULAR: S1 and S2 heard, tachycardia. No murmurs. RESPIRATORY: Normal AP diameter. No accessory muscle use. No wheezing, no crackles. ABDOMEN: Soft, bowel sounds present, nontender, no distention. CENTRAL NERVOUS SYSTEM: Cranial nerves II-XII grossly intact, nonfocal. EXTREMITIES: No edema, no erythema. LABORATORY DATA: WBC 9.5, hemoglobin 16.2, hematocrit 45.9, platelets 134. PT 10.9, INR 1.1, APTT 23.9. Sodium 137, potassium 3.2, chloride 100, bicarbonate 24, BUN 6, creatinine 0.8, serum glucose 142. Calcium 9.1, magnesium 1.1, total bilirubin 1.9, AST is 161, ALT 94, alkaline phosphatase 199. Total creatinine kinase 165. Troponin I less than 0.015. TSH 1.8. SARS-CoV-2 PCR negative. Ethyl alcohol less than 3. IMAGING DATA: Chest x-ray, no acute disease in the chest. ASSESSMENT AND PLAN: This is a 25-year-old male who presents with nausea, vomiting, and diarrhea. 1. Nausea, vomiting, and diarrhea: Could be gastroenteritis. Nausea and vomiting also could be from gastritis from his alcoholism. Will place him on IV Pepcid, IV fluids. Keep on clear liquid diet. Check stool cultures and stool for C. diff and closely monitor in the [facility] tele. 2. Alcoholism: The patient has history of alcohol withdrawal seizures in the past, but currently says he is only drinking 1 glass of wine and 1 glass of vodka and did not drink the three days because of nausea and vomiting, but the patient is shaky and tachycardic, could be from the alcohol withdrawal. Will place him on gabapentin withdrawal protocol and IV Ativan p.r.n. Received some IV Ativan in the ER. We also gave banana bag and IV thiamine and folic acid daily and multivitamin daily and will closely monitor for withdrawal. 3. Hypokalemia and hypomagnesemia: Will replace. Follow the repeat labs. 4. Elevated LFTs: History of elevated LFTs in the past from his alcoholism. Will follow the repeat labs in a.m. If concerning, will consult GI and also liver ultrasound. 5. Deep venous thrombosis prophylaxis: Sequential compression devices for now. DISPOSITION: Closely monitor in the [facility] tele. Level 1 full code. Expect to discharge home and follow with family doctor. Job ID: [id number] [facility]
[2021-04-25] MEDS ORDERED: LORazepam 1 MG/2 ML VIAL IV PRN (02:40)
[2021-04-25] MEDS ORDERED: GABAPENTIN 1200MG ALCOHOL WITHDRAWAL LOAD PO STA (02:40)
[2021-04-25] MEDS ORDERED: LORazepam 3 MG/6 ML VIAL IV PRN (02:40)
[2021-04-25] MEDS ORDERED: D5W AND NSS 1,000 ML IV SCH (02:40)
[2021-04-25] MEDS ORDERED: ACETAMINOPHEN 325 MG TAB PO PRN (02:40)
[2021-04-25] MEDS ORDERED: ATIVAN IV ALCOHOL WITHDRAWL IV PRN (02:40)
[2021-04-25] MEDS ORDERED: ONDANSETRON INJ 2 MG/ML 2 ML VIAL IV PRN (02:40)
[2021-04-25] MEDS ORDERED: NITROGLYCERIN SL 0.4 MG/TAB TAB SL PRN (02:40)
[2021-04-25] MEDS ORDERED: MAGNESIUM SULFATE / D5W 1 GM/100 ML BAG IV ONE (03:00)
[2021-04-25] MEDS ORDERED: MULTI-VITAMIN INFUSION 10 ML, THIAMINE HCL 100 MG, FOLIC ACID 1 MG in SODIUM CHLORIDE 0... IV ONE (03:00)
[2021-04-25] MEDS: LORazepam 2 MG/4 ML VIAL IV PRN ×2 (03:28→21:41)
[2021-04-25] MEDS ORDERED: GABAPENTIN 600 MG TAB PO SCH (04:00)
[2021-04-25] MEDS: PATIENT'S HEIGHT AND/OR WEIGHT NEEDED SCH ×6 (04:18→06:52)
[2021-04-25 07:36] LABS: Alanine Aminotransferase 66 U/L (12-78); Albumin Level 2.8 gm/dl (3.4-5.0); Aspartate Aminotransferase 97 U/L (15-37); BUN Creatinine Ratio 7.6 (10-20); Bilirubin Direct 0.3 mg/dl (0-0.2); Blood Urea Nitrogen 5 mg/dl (7-18); Calcium 7.6 mg/dl (8.5-10.1); Carbon Dioxide 26 mmol/L (21-32); Chloride 108 mmol/L (98-107); Creatinine Clr Calc Pharmacy 197.7 ml/min; Est GFR (African American) > 150.0 ml/min; Est GFR (Non-African American) 135.1 ml/min; Glucose 71 mg/dl (70-99); Magnesium 2.4 mg/dl (1.8-2.4); Potassium 3.5 mmol/L (3.5-5.1); Sodium 138 mmol/L (136-145)
[2021-04-25 07:42] LABS: Alkaline Phosphatase 148 U/L (45-117); Bilirubin,Total 1.2 mg/dl (0.2-1); Total Protein 5.4 gm/dl (6.4-8.2)
[2021-04-25] MEDS: THIAMINE HCL 100 MG in SYRINGE 9 ML IV SCH (08:30)
[2021-04-25] MEDS: FOLIC ACID 1 MG in SYRINGE 9.8 ML IV SCH (08:30)
[2021-04-25] MEDS: GABAPENTIN 600 MG TAB PO SCH ×3 (08:30→21:40)
[2021-04-25 08:37] LABS: Basophils # (auto) 0.01 K/uL (0-0.2); Basophils % (auto) 0.2 %; Eosinophils # (auto) 0.03 K/uL (0-0.5); Eosinophils % (auto) 0.7 %; Hematocrit (blood only) 43.8 % (42-52); Immature Granulocytes # (auto) 0.02 K/uL (0.00-0.02); Immature Granulocytes % (auto) 0.5 %; Lymphocytes # (auto) 0.72 K/uL (1.2-3.4); Lymphocytes % (auto) 17.7 %; Mean Corpuscular Hemoglobin 33.8 pg (25-34); Mean Corpuscular Hgb Conc 34.2 g/dL (32-36); Mean Corpuscular Volume 98.6 fL (80-100); Mean Platelet Volume 10.2 fL (7.4-10.4); Monocytes # (auto) 0.32 K/uL (0.11-0.59); Monocytes % (auto) 7.9 %; Neutrophils # (auto) 2.96 K/uL (1.4-6.5); Platelet Count 42 K/uL (130-400); RDW Coefficient of Variation 15.4 % (11.5-14.5); RDW Standard Deviation 55.2 fL (36.4-46.3); Red Blood Count 4.44 M/uL (4.7-6.1); White Blood Count 4.06 K/uL (4.8-10.8)
[2021-04-25 08:38] LABS: Platelet Estimate Decreased (Normal); RBC Morphology Unremarkable
[2021-04-25] MEDS ORDERED: FAMOTIDINE 20 MG in SYRINGE 3 ML IV SCH (09:00)
[2021-04-25] MEDS: PANTOprazole 40 MG in SYRINGE 0 ML IV SCH ×2 (09:06→21:27)
[2021-04-25] MEDS: NSS + 20MEQ KCL 20 MEQ/1,000 ML BAG IV SCH ×2 (09:06→16:28)
[2021-04-25] MEDS: LORazepam 0.5 MG/1 ML VIAL IV PRN (11:18)
--- NOTE | 2021-04-25 11:30 | Hospitalist Progress Note ---
Date of Service April 25, 2021 Assessment & Plan (1) Nausea vomiting and diarrhea: Plan: ASSESSMENT AND PLAN: This is a 25-year-old male who presents with nausea, vomiting, and diarrhea. 1. Nausea, vomiting, and diarrhea -- from gastroenteritis? Alcoholism contributing? -- ongoing for the past 3-4 days -- IV protonix clear liquid diet stool culture -- GI consulted 2. Alcoholism -- alcohol withdrawal protocol including gabapentin protocol -- no signs of overt alcohol withdrawal this morning -- consulted Psych regarding concerns about depression, suicidal ideation per grandmother patient adamantly declining that I speak with her grandmother discussed situation with Psych Liaison Sonia 3. Hypokalemia and hypomagnesemia -- replaced 4. Elevated LFTs -- improving 5. Deep venous thrombosis prophylaxis: Sequential compression devices for now. plan of care discussed with patient in detail and at length all questions answered he is understanding, agreeable, comfortable with the plan of care Admission and Anticipated Discharge Date Admission Date: April 25, 2021 Subjective ff up for nausea, vomiting, alcohol withdrawal etc seen resting in bed, sleeping but easily awakened comfortable states he feels better compared to admission nausea resolved tolerating clear liquids so far no abdominal pain on exam but does report intermittent discomfort secondary to bloating reports anxiety is mild- chronic denies tremors, sweating, hallucinations discussed with patient regarding grandmother's concern that he is drinking to hurt himself patient adamantly denies this- " i am busy with my work, i have friends, i drink socially" denies being depressed, or having suicidal ideation discussed regarding talking with our mental health service regarding this and patient agreeable YORDAN Quinn present throughout encounter Review of Systems Review of Systems: all noted and negative except for above Physical Exam Physical Exam: General- oriented x 3, not in distress, speaks in sentences with no effort or accessory muscle use Head- atraumatic Eyes- PERRL, EOMI, anicteric ENT- oropharynx clear Neck- supple, no JVD, no adenopathy, no thyromegaly; carotids +2/2, no bruits appreciated Lungs- clear to auscultation bilaterally, no rales/wheezes Heart- normal rate, regular rhythm; no murmur, no gallop, no rub appreciated Abdomen- normal bowel sounds, nondistended, soft, nontender, no masses or hepatosplenomegaly Extremities- no pretibial edema, no calf tenderness; peripheral pulses intact Neuro- alert, oriented x 3; CN 2-12 grossly intact; motor 5/5 bilaterally;sensation 100% on all extremities; no other gross focal neurologic deficits Skin- warm & dry Results & Data Results & Data ([facility]) Vital Signs (Past 12 Hours) Vital Signs Temp Pulse Pulse Resp BP BP BP 04/25/21 07:48 36.6 C 90 16 130/89 04/25/21 07:00 71 04/25/21 04:08 101 H 04/25/21 03:58 37.2 C 66 18 138/89 04/25/21 02:45 37.2 C 66 18 138/89 04/25/21 02:26 89 16 128/61 04/25/21 00:51 105 H 16 122/86 Pulse Ox 04/25/21 07:48 100 04/25/21 07:00 04/25/21 04:08 04/25/21 03:58 96 04/25/21 02:45 96 04/25/21 02:26 99 04/25/21 00:51 98 all noted and reviewed including below
--- NOTE | 2021-04-25 12:10 | Gastrointestinal Consultation ---
Date of Consultation April 25, 2021 Assessment & Plan (1) Nausea vomiting and diarrhea: (2) Abnormal LFTs: suspect gastroenteritis combined with alcohol abuse. hypoalbuminemia is concerning, normal INR. recs: --supportive care, ETOH withdrawal protocol --agree with thiamine and vitamin K --trend LFTs --obtain abdominal US to further evaluate --if diarrhea continues, would obtain stool culture and cdiff --strict alcohol cessation, consider outpatient alcohol rehab --he does have a history of gastric ulcers 6 years ago found on endoscopy, hgb currently normal, would continue pepcid for now and if n/v persist can consider EGD Thank you for allowing me to participate in the care of this patient History of Present Illness Reason for Consultation: nausea/vomiting Requesting Physician: Dr. Ricci Attending Physician: James Gaspar MD History of Present Illness 25-year-old male with hx ETOH abuse and seizures from withdrawal, elevated LFTs here with n/v and diarrhea for 3 days. He notes he is allergic to certain foods and dyes and had red gatorade few days ago which he thinks set off this attack. He used to drink heavily 2.5 years ago but denies doing so since then when he had his CCY then. He notes vomiting anything he eats, had diarrhea as recently as last night. No hematochezia, hematemesis, melena. He is shaky and currently admitting to drinking few glasses of wine when he drinks, denies daily drinking. labs reviewed, afebrile, VSS. He did require some ativan this morning and some medicine overnight as part of ETOH withdrawal protocol. Allergies Allergy/AdvReac Type Severity Reaction Status Date / Time blue dye AdvReac Vomiting Unverified 04/25/21 01:19 levetiracetam AdvReac overly Unverified 04/25/21 01:19 emotional red dye AdvReac Vomiting Unverified 04/25/21 01:19 Home Medications Medication Instructions Recorded Confirmed Type ibuprofen 200 mg tablet (Advil) 400 mg PO Q6H PRN 04/25/21 04/25/21 History melatonin 1 mg tablet 0 mg PO HS 04/25/21 04/25/21 History Patient History Medical History Alcohol abuse Alcohol withdrawal seizure Hematoma TONGUE Post traumatic stress disorder Thrombocytopenia PT UNAWARE Surgical History Hx of unilateral orchiectomy S/P cholecystectomy Family History Father Unknown family medical history Mother Unknown family medical history Denies family history of Diabetes Heart disease Social History Smoking Status: Never smoker Second Hand Exposure: No; Do You Dip or Chew Tobacco: No; Hx Alcohol Use: Yes Alcohol type: beer, wine and hard liquor Alcohol Intake Frequency Comment: History of heavy alcohol use; last drink 06/27 Hx Substance Use: No Preferred Language: Armenian Communication Ability: Effective Visual Impairment: No Limitations Hose Inspector Required: No Beliefs That Will Affect Care: None marital status: Single Current Living Situation: Alone current occupational status: 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 Feels Safe at Home: Yes Safety Concerns: Feels Safe At This Time Assistive Devices: None Review of Systems Constitutional: no fever, no chills and no weight loss Eyes: as per Subjective / HPI Ear, Nose, Mouth, Throat: as per Subjective / HPI Respiratory: no dyspnea and no dyspnea on exertion Cardiovascular: no chest pain and no palpitations Gastrointestinal: as per Subjective / HPI Musculoskeletal: no joint pain and no swelling Integumentary: no rash and no lesions Neurologic: no numbness and no paresthesia Psychiatric: no depression and no anxiety Endocrine: no fatigue Hematologic / Lymphatic: no easy bleeding and no easy bruising Physical Exam Constitutional: WD/WN, vitals as above Eyes: EOM intact bilaterally Neck: normal visual inspection Respiratory: normal respiratory effort, lungs clear to auscultation Cardiovascular: RRR, no murmur, no edema Gastrointestinal (Abdomen): Inspection/Auscultation: abdomen normal to inspection; abdomen not distended Percussion/Palpation: abdomen soft; abdomen nontender and no hepatosplenomegaly Musculoskeletal: Extremities: no cyanosis Gait: normal gait Skin: no rashes, warm and dry Neurologic: moves all extremities Psychiatric: A+Ox3, euthymic affect Results & Data ([facility]) Vital Signs (Past 12 Hours) Vital Signs Temp Pulse Pulse Resp BP BP BP 04/25/21 11:34 37.2 C 87 16 139/74 04/25/21 07:48 36.6 C 90 16 130/89 04/25/21 07:00 71 04/25/21 04:08 101 H 04/25/21 03:58 37.2 C 66 18 138/89 04/25/21 02:45 37.2 C 66 18 138/89 04/25/21 02:26 89 16 128/61 04/25/21 00:51 105 H 16 122/86 Pulse Ox 04/25/21 11:34 99 04/25/21 07:48 100 04/25/21 07:00 04/25/21 04:08 04/25/21 03:58 96 04/25/21 02:45 96 04/25/21 02:26 99 04/25/21 00:51 98 PG Care Time/CCT Total # of Minutes Spent Total Time Spent with Patient: Total time spent is greater than 50% in coordination of care (as documented) at patient's floor/unit and/or counseling patient: Coding Level of Care Code 92987 Inpt Consult Level 4 Diagnoses Nausea vomiting and diarrhea R11.2; R19.7 Abnormal LFTs R94.5
[2021-04-25] MEDS ORDERED: METOPROLOL TARTRATE 1 MG/ML VIAL IV PRN (19:33)
[2021-04-26] MEDS: NSS + 20MEQ KCL 20 MEQ/1,000 ML BAG IV SCH ×2 (00:42→08:32)
[2021-04-26] MEDS: LORazepam 0.5 MG/1 ML VIAL IV PRN (02:50)
[2021-04-26] MEDS: GABAPENTIN 600 MG TAB PO SCH ×2 (06:14→14:15)
[2021-04-26] MEDS: FOLIC ACID 1 MG in SYRINGE 9.8 ML IV SCH (08:28)
[2021-04-26] MEDS: PANTOprazole 40 MG in SYRINGE 0 ML IV SCH (08:28)
[2021-04-26] MEDS: THIAMINE HCL 100 MG in SYRINGE 9 ML IV SCH (08:28)
[2021-04-26 08:56] LABS: Basophils # (auto) 0.01 K/uL (0-0.2); Basophils % (auto) 0.3 %; Eosinophils # (auto) 0.07 K/uL (0-0.5); Eosinophils % (auto) 1.9 %; Hematocrit (blood only) 41.3 % (42-52); Lymphocytes # (auto) 0.72 K/uL (1.2-3.4); Lymphocytes % (auto) 19.6 %; Mean Corpuscular Hemoglobin 33.3 pg (25-34); Mean Corpuscular Hgb Conc 33.9 g/dL (32-36); Mean Corpuscular Volume 98.1 fL (80-100); Mean Platelet Volume 9.9 fL (7.4-10.4); Monocytes # (auto) 0.43 K/uL (0.11-0.59); Monocytes % (auto) 11.7 %; Neutrophils # (auto) 2.45 K/uL (1.4-6.5); Neutrophils % (auto) 66.5 %; Platelet Count 65 K/uL (130-400); Platelet Estimate Decreased (Normal); RDW Coefficient of Variation 15.1 % (11.5-14.5); Red Blood Count 4.21 M/uL (4.7-6.1); White Blood Count 3.68 K/uL (4.8-10.8)
[2021-04-26 09:02] LABS: Alanine Aminotransferase 62 U/L (12-78); Albumin Level 3.1 gm/dl (3.4-5.0); Aspartate Aminotransferase 90 U/L (15-37); BUN Creatinine Ratio 2.5 (10-20); Bilirubin Direct 0.4 mg/dl (0-0.2); Blood Urea Nitrogen 1 mg/dl (7-18); Calcium 8.3 mg/dl (8.5-10.1); Carbon Dioxide 24 mmol/L (21-32); Chloride 106 mmol/L (98-107); Creatinine Clr Calc Pharmacy 225.9 ml/min; Est GFR (African American) > 150.0 ml/min; Est GFR (Non-African American) 142.8 ml/min; Glucose 88 mg/dl (70-99); Magnesium 1.8 mg/dl (1.8-2.4); Potassium 3.5 mmol/L (3.5-5.1); Sodium 138 mmol/L (136-145)
[2021-04-26 09:05] LABS: Alkaline Phosphatase 135 U/L (45-117); Bilirubin,Total 1.1 mg/dl (0.2-1); Total Protein 5.8 gm/dl (6.4-8.2)
--- NOTE | 2021-04-26 09:10 | Ultrasound Report ---
ULTRASOUND ABDOMEN COMPLETE CLINICAL HISTORY: Nausea and vomiting. COMPARISON STUDY: Abdominal CT dated 06/27/2018 TECHNIQUE: Real-time, grayscale, and color flow sonography of the abdomen was performed. Images are r eviewed in the transverse and longitudinal planes. FINDINGS: Liver: The liver is normal in size and echotexture. There is no intrahepatic biliary ductal dilatatio n. The main portal vein is patent. Gallbladder: The gallbladder is surgically absent. The common bile duct measures up to 0.4 cm in diam eter. Pancreas: Visualized portions of the pancreatic head and body are normal in appearance. The splenic v ein is patent. Spleen: The spleen is normal in size and echotexture, measuring 10.9 cm in length. Kidneys: The kidneys are normal in size and echotexture. There is no hydronephrosis. The right kidney measures 9.6 cm in length and the left kidney measures 11.9 cm in length. No shadowing calculi are i dentified. Abdominal vasculature: Visualized portions of the abdominal aorta are normal in caliber. The IVC was not well-visualized due to overlying bowel gas. Ascites: None. IMPRESSION: Unremarkable sonographic evaluation of the abdomen noting status post cholecystectomy ACT 112: Negative or not required by law. Electronically signed by: Rajan Grove M.D. 04/26/2021 9:08 AM
--- NOTE | 2021-04-26 10:30 | Psychiatric Consultation ---
Date of Consultation April 26, 2021 Impression / Recommendations Impression 25-year-old male who presented with abdominal complaints. There was some concern from his grandmother regarding his mental health, however patient is denying any signs or symptoms of depression. He denies need for alcohol rehab or treatment at this time. (1) Alcohol use: Patient is cleared for discharge from psychiatric point of view. Outpatient psychiatric resources provided should patient decide to change his mind and seek outpatient mental health care Psych History Identifying Data 25-year-old male who presented with abdominal complaints. There was concern for patient's mental health as well as drinking issues. Chief Complaint "I am fine, it's just my grandma who is overreacting". History of Present Illness HPI as per psychiatric liaison " Rounded on pt. Pt was pleasant and polite with staff. Pt stated that he does not need any of [facility] services. Pt denies any suicidal, homicidal and self-harm thoughts. Pt stated that he is not depressed and is happy with his life. He only said he has trouble falling a sleep at times. Pt was asked if he thought he had any issues with drinking ETOH or abusing it. The pt denies any issues and does not want any information about ETOH abuse. The pt stated "that if he needed information regarding ETOH abuse he would google it himself. The pt scored a 1 on the PHQ-9. When answering some of the questions the pt smiled and had a pramod le snicker. The pt politely declined our services. He did tell staff that he was removed from his parents home at 14 from [facility] He would not go into great detail. He stated that he did therapy at that time and tried some meds. He did not disclose the meds. He only said that he tried several SRNIs. He stated that they did not work and he was very sedated. He stated they stopped the meds and he started going to the gym and doing more activities with his friends. He stated that he has been doing well and denies any issues." Patient reports that he started to feel better. He endorses the above information is accurate. He denies any mental health issues and stated that he has had therapy in the past and did not find it helpful. He denies any prior suicide attempts or suicidal ideation. Patient is adamant that he is able to distract himself with work and going to the gym and does not need any mental health treatment at this time. He is showing no overt symptoms and is denying any suicidal homicidal ideation. Denies any manic or psychotic symptoms. Denying even that he drinks excessively or in a way which is detrimental to his health. Patient goes on to reiterate that his grandmother lost her father due to alcoholism and has been hyper paranoid about drinking since the event. He denies need for rehab or any alcohol counseling outpatient services. Allergies Allergy/AdvReac Type Severity Reaction Status Date / Time blue dye AdvReac Vomiting Unverified 04/25/21 01:19 levetiracetam AdvReac overly Unverified 04/25/21 01:19 emotional red dye AdvReac Vomiting Unverified 04/25/21 01:19 Home Medications Medication Instructions Recorded Confirmed Type ibuprofen 200 mg tablet (Advil) 400 mg PO Q6H PRN 04/25/21 04/25/21 History melatonin 1 mg tablet 0 mg PO HS 04/25/21 04/25/21 History Personal History Beliefs That Will Affect Care: None Patient History Medical History (Updated 04/26/21 @ 00:07 by Background Daemon) Alcohol abuse Alcohol withdrawal seizure Hematoma TONGUE Post traumatic stress disorder Thrombocytopenia PT UNAWARE Surgical History Hx of unilateral orchiectomy S/P cholecystectomy Family History Father Unknown family medical history Mother Unknown family medical history Denies family history of Diabetes Heart disease Social History Smoking Status: Never smoker Second Hand Exposure: No; Do You Dip or Chew Tobacco: No; Hx Alcohol Use: Yes Alcohol type: beer, wine and hard liquor Alcohol Intake Frequency Comment: History of heavy alcohol use; last drink 06/27 Hx Substance Use: No Preferred Language: [place] Communication Ability: Effective Visual Impairment: No Limitations Core Sucker Required: No Beliefs That Will Affect Care: None marital status: Single Current Living Situation: Alone current occupational status: 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 Feels Safe at Home: Yes Safety Concerns: Feels Safe At This Time Assistive Devices: None Physical Exam Psychiatric: Orientation: alert and oriented x 3 Apperance: appropriately dressed Eye Contact: good eye contact Motor Behavior: no abnormal motor movements Speech: normal rate/rhythm/volume of speech Affect: euthymic affect Mood: no depressed mood and no anxious mood Thought Process: goal directed thought process Thought Content: reality based without delusions Suicidal Thoughts: denies suicidal thoughts Homicidal Thoughts: denies homicidal thoughts Hallucinations: no auditory hallucinations and no visual hallucinations Cognition: recent memory grossly intact Estimated Intelligence: average estimated intelligence Insight: + fair insight Judgement: + fair judgement Vital Signs (Past 24 Hours): Last Vital Signs Temp 37.3 C 04/26/21 07:27 Pulse 103 H 04/26/21 07:59 Resp 18 04/26/21 07:27 BP 132/94 04/26/21 07:27 Pulse Ox 100 04/26/21 07:27 Review of Systems All systems reviewed & are unremarkable except as noted in HPI & below Results & Data ([facility]) Medications Administered Gabapentin (Gabapentin 600 Mg Tab) 600 mg PO Q8H [facility] Stop: 04/26/21 14:01 Last Admin: 04/26/21 06:14 Dose: 600 mg Documented by: [id number] Admin: 04/25/21 21:40 Dose: 600 mg Documented by: [id number] Thiamine HCl 100 mg/ Syringe 10 mls @ 2 mls/min IV QAM [facility] Stop: 05/25/21 08:59 Last Admin: 04/26/21 08:28 Dose: 2 mls/min Documented by: [id number] Admin: 04/25/21 08:30 Dose: 2 mls/min Documented by: [id number] Folic Acid 1 mg/ Syringe 10 mls @ 5 mls/min IV QAM [facility] Stop: 05/25/21 08:59 Last Admin: 04/26/21 08:28 Dose: 5 mls/min Documented by: [id number] Admin: 04/25/21 08:30 Dose: 5 mls/min Documented by: [id number] Lorazepam (Ativan) 1 mg in 2 mls @ 2 mls/min IV UD PRN; Protocol PRN Reason: EtOH Withdrawl AWSS Score 6,7 Stop: 05/25/21 02:39 Last Admin: 04/25/21 19:28 Dose: 1 mls/min Documented by: [id number] Lorazepam (Ativan) 2 mg in 4 mls @ 4 mls/min IV UD PRN; Protocol PRN Reason: EtOH Withdrawl AWSS Score 8,9 Stop: 05/25/21 02:39 Last Admin: 04/25/21 21:41 Dose: 4 mls/min Documented by: [id number] Admin: 04/25/21 03:28 Dose: 4 mls/min Documented by: [id number] Potassium Chloride/Sodium Chloride (Normal Saline W/20 Meq Kcl) 20 meq in 1,000 mls @ 125 mls/hr IV .Q8H [facility] Stop: 05/25/21 08:29 Last Infusion: 04/26/21 08:32 Dose: 0 mls/hr Documented by: [id number] Admin: 04/26/21 08:32 Dose: 125 mls/hr Documented by: [id number] Infusion: 04/26/21 08:31 Dose: 0 mls/hr Documented by: [id number] Admin: 04/26/21 00:42 Dose: 125 mls/hr Documented by: [id number] Infusion: 04/26/21 00:28 Dose: 125 mls/hr Documented by: [id number] Admin: 04/25/21 16:28 Dose: 125 mls/hr Documented by: [id number] Infusion: 04/25/21 16:28 Dose: 0 mls/hr Documented by: [id number] Admin: 04/25/21 09:06 Dose: 125 mls/hr Documented by: [id number] Pantoprazole Sodium 40 mg/ (Syringe) 10 mls @ 5 mls/min IV BID [facility] Stop: 05/25/21 08:59 Last Admin: 04/26/21 08:28 Dose: 5 mls/min Documented by: [id number] Admin: 04/25/21 21:27 Dose: 5 mls/min Documented by: [id number] Admin: 04/25/21 09:06 Dose: 5 mls/min Documented by: [id number] Lorazepam (Ativan) 0.5 mg in 1 mls @ 1 mls/min IV Q4H PRN PRN Reason: Anxiety Stop: 05/25/21 08:09 Last Admin: 04/26/21 02:50 Dose: 1 mls/min Documented by: [id number] Admin: 04/25/21 11:18 Dose: 1 mls/min Documented by: [id number] Coding Level of Care Code 50489 U Intl Hosp Care Lvl 2 Diagnoses Alcohol use Z72.89
[2021-04-26] MEDS ORDERED: POTASSIUM CHLORIDE CRTAB 20 MEQ TABCR PO STA (11:42)
--- NOTE | 2021-04-26 11:45 | Hospitalist Progress Note ---
Date of Service April 26, 2021 Assessment & Plan (1) Nausea vomiting and diarrhea: Plan: ASSESSMENT AND PLAN: This is a 25-year-old male who presents with nausea, vomiting, and diarrhea. 1. Nausea, vomiting, and diarrhea -- from gastroenteritis? Alcoholism contributing? -- ongoing for the past 3-4 days -- IV protonix clear liquid diet C diff: negative -- Liver US: unremarkable except for s/p Cholecystectomy -- GI consulted- Dr. Miranda- likely Gastroenteritis, combined with alcohol abuse -- continue Protonix 40mg po daily ff up with GI if n/v persisting, outpatient EGD -- strict alcohol cessation 2. Alcohol Use -- alcohol withdrawal protocol including gabapentin protocol -- no signs of overt alcohol withdrawal this morning -- consulted Psych regarding concerns about depression, suicidal ideation per grandmother Psych consulted- Dr. Kaur- patient denies depresssion, also denies need for inpatient alcohol rehab or treatment -- discharge on Gabapentin taper x 2 days to complete protocol -- ff up with PCP in 1 week 3. Hypokalemia and hypomagnesemia -- replaced 4. Elevated LFTs -- tot pola 1.1 Direct bili 0.4 AST 90 ALT 62 -- Liver US: unremarkable except for s/p Cholecystectomy --- ff up as outpatient 5. Thrombocytopenia Mild Neutropenia -- likely from Alcohol use -- WBC 3.6 Plt 65 -- repeat CBC on ff up as outpatient plan of care discussed with patient in detail and at length all questions answered he is understanding, agreeable, comfortable with the plan of care Admission and Anticipated Discharge Date Admission Date: April 25, 2021 Subjective ff up for nausea, alcohol withdrawal, etc seen resting in bed, comfortable sitting up, using his tablet computer in good spirits states he feels much bettter overall nausea, abdominal pain has resolved would very much like diet to be advanced, hungry had 1 normal BM yesterday states his anxiety is at baseline- mild adamantly denies depression, suicidal ideations no other symptoms when inquired, patient is giving me permission to speak with his grandmother but not give her medical information about him Review of Systems Review of Systems: all noted and negative except for above Physical Exam Physical Exam: General- oriented x 3, not in distress, speaks in sentences with no effort or accessory muscle use Eyes- anicteric Neck- no JVD Lungs- clear breath sounds bilaterally, no rales/wheezes Heart- normal rate, regular rhythm; no murmurs Abdomen- normal bowel sounds, nondistended, soft, nontender Extremities- no pretibial edema, no calf tenderness Neuro- alert, oriented x 3; no gross focal neurologic deficits Skin- warm & dry psych- cheerful mood, normal affect Results & Data Results & Data ([facility]) Vital Signs (Past 12 Hours) Vital Signs Temp Pulse Pulse Resp BP BP Pulse Ox 04/26/21 11:22 36.8 C 88 18 146/94 H 98 04/26/21 07:59 103 H 04/26/21 07:27 37.3 C 94 H 18 132/94 100 04/26/21 04:00 37.0 C 89 18 140/78 98 04/25/21 23:35 36.7 C 102 H 18 141/95 H 100 all noted and reviewed including below
--- NOTE | 2021-04-26 14:00 | Discharge Summary ---
Date of Service April 26, 2021 Admission HPI Per Admitting Provider HISTORY OF PRESENT ILLNESS: A 25-year-old male with past medical history significant for alcohol abuse, alcohol withdrawal seizures, history of thrombocytopenia, history of elevated LFTs, presents with nausea and vomiting for last 3 days. The patient states in the last 3 days he is vomiting a lot and having some abdominal discomfort and also diarrhea. Denies any blood in the stool or black stool. Denies any blood in the vomitus. The patient is somewhat shaky, but the patient states he is only drinking 1 glass of wine or 1 glass of vodka every day, not much, and since last 3 days is not drinking because of nausea, vomiting. Having headaches and sore throat from vomiting and some redness in the eyes because of the straining. Denies any dizziness, no blurred vision, no earache, no runny nose, no sore throat, no cough, no fevers, no shortness of breath, no chest pain. Normal bladder movements. Admission Exam Per Admitting Provider GENERAL: The patient is of moderate build, not in acute distress. Shaky VITAL SIGNS: Temperature 36.8, pulse 115, respiratory rate 21, blood pressure 131/91, oxygen 99% on room air. HEENT: Pupils equal, round and reactive to light. Oral mucosa moist. NECK: No JVD, no neck masses. CARDIOVASCULAR: S1 and S2 heard, tachycardia. No murmurs. RESPIRATORY: Normal AP diameter. No accessory muscle use. No wheezing, no crackles. ABDOMEN: Soft, bowel sounds present, nontender, no distention. CENTRAL NERVOUS SYSTEM: Cranial nerves II-XII grossly intact, nonfocal. EXTREMITIES: No edema, no erythema. Principal Diagnosis NAUSEA, VOMITING LIKELY ACUTE GASTROENTERITIS ALCOHOL USE Discharge Exam General- oriented x 3, not in distress, speaks in sentences with no effort or accessory muscle use Eyes- anicteric Neck- no JVD Lungs- clear breath sounds bilaterally, no rales/wheezes Heart- normal rate, regular rhythm; no murmurs Abdomen- normal bowel sounds, nondistended, soft, nontender Extremities- no pretibial edema, no calf tenderness Neuro- alert, oriented x 3; no gross focal neurologic deficits Skin- warm & dry psych- cheerful mood, normal affect Discharge Data Allergies Allergy/AdvReac Type Severity Reaction Status Date / Time blue dye AdvReac Vomiting Unverified 08/21/21 01:19 levetiracetam AdvReac overly Unverified 04/25/21 01:19 emotional red dye AdvReac Vomiting Unverified 04/25/21 01:19 Consultations 04/24/21 23:27 ED Decision to Admit Stat 04/25/21 08:12 Consult Gastroenterology Routine 04/25/21 11:07 Consult Psychiatry Routine Ordered Studies 04/26/21 06:20 US abdomen complete Routine Liver: The liver is normal in size and echotexture. There is no intrahepatic biliary ductal dilatation. The main portal vein is patent. Gallbladder: The gallbladder is surgically absent. The common bile duct measures up to 0.4 cm in diameter. Pancreas: Visualized portions of the pancreatic head and body are normal in appearance. The splenic vein is patent. Spleen: The spleen is normal in size and echotexture, measuring 10.9 cm in lengt h. Kidneys: The kidneys are normal in size and echotexture. There is no hydronephrosis. The right kidney measures 9.6 cm in length and the left kidney measures 11.9 cm in length. No shadowing calculi are identified. Abdominal vasculature: Visualized portions of the abdominal aorta are normal in caliber. The IVC was not well-visualized due to overlying bowel gas. Ascites: None. IMPRESSION: Unremarkable sonographic evaluation of the abdomen noting status post cholecystectomy Hospital Course (1) Nausea vomiting and diarrhea: ASSESSMENT AND PLAN: This is a 25-year-old male who presents with nausea, vomiting, and diarrhea. 1. Nausea, vomiting, and diarrhea -- from gastroenteritis? Alcoholism contributing? -- ongoing for the past 3-4 days -- IV protonix clear liquid diet C diff: negative -- Liver US: unremarkable except for s/p Cholecystectomy -- GI consulted- Dr. Miranda- likely Gastroenteritis, combined with alcohol abuse -- symptoms resolved tolerating soft diet well states he is ready and would like to be discharged -- continue Protonix 40mg po daily ff up with GI if n/v persisting, outpatient EGD -- strict alcohol cessation 2. Alcohol Use -- alcohol withdrawal protocol including gabapentin protocol -- no signs of overt alcohol withdrawal this morning -- consulted Psych regarding concerns about depression, suicidal ideation per grandmother Psych consulted- Dr. Kaur- patient denies depresssion, also denies need for inpatient alcohol rehab or treatment -- discharge on Gabapentin taper x 2 days to complete protocol -- ff up with PCP in 1 week 3. Hypokalemia and hypomagnesemia -- replaced 4. Elevated LFTs -- tot pola 1.1 Direct bili 0.4 AST 90 ALT 62 -- Liver US: unremarkable except for s/p Cholecystectomy --- ff up as outpatient 5. Thrombocytopenia Mild Neutropenia -- likely from Alcohol use -- WBC 3.6 Plt 65 -- no signs of bleeding -- repeat CBC on ff up as outpatient plan of care discussed with patient in detail and at length all questions answered he is understanding, agreeable, comfortable with the plan of care Total Time Total Time Spent Total Time Spent (In Minutes): > 30 minutes Discharge Plan Discharge Items Patient Disposition: Home - Self-Care Reason For Visit: NAUSEA AND VOMITING Discharge Diagnosis: NAUSEA, VOMITING, LIKELY SECONDARY TO GASTROENTERITIS Condition on Discharge: Good Activity: Resume your previous activity Activity Comment: GRADUALLY TOLERATED Exercise/Sports: Wait until after follow-up appointment Driving/Machine Use: NO DRIVING UNTIL RE-EVALUATED AND ALLOWED BY PRIMARY CARE PHYSICIAN Non-emergency contact: Primary Care Provider and [facility] Call non-emergency contact if: you have any medication questions, your symptoms worsen, your pain is not controlled, your pain is worsening, your pain is unusual for you, your pain is concerning for you and you have a fever Follow-up/Referrals: PCP,NO [Primary Care Provider] - Diet: Low Fiber, Low Fat and Lactose Intolerant Diet Comment: Soft diet for 1-2 days, advance as tolerated Addtl Attending Provider Instructions: Please review your new medication list and follow instructions carefully. New medications: Protonix- for possible gastritis; take at least 30 minutes before breakfast Gabapentin- for alcohol withdrawal prevention Do not take medications under the class of NSAIDs including Aspirin, Ibuprofen, Naproxen, etc. Drink plenty of water. No alcohol or smoking. Follow up with Primary Care Physician in 1 week. The clinic will be calling you for an appointment soon. Follow up with [facility] in 2-3 weeks. Call Primary Care Physician or return to the ER immediately if with worsening of symptoms, including worsening of abdominal pain, nausea, vomiting,fever/chills, diarrhea, worsening of anxiety or any feelings of depression. Pending Studies at Discharge: No Stand-Alone Forms: [employer], Smoking Cessation Medications and DC Order Prescriptions: New gabapentin 600 mg Tablet 600 mg PO UD Qty: 3 RF: 0 pantoprazole [Protonix] 40 mg tablet,delayed release (DR/EC) 40 mg PO DAILY Qty: 30 RF: 2 Continued melatonin 1 mg Tablet 0 mg PO HS RF: 0 Discontinued ibuprofen [Advil] 200 mg Tablet 400 mg PO Q6H PRN (Reason: Pain) RF: 0 Discharge Orders: Discharge Order (Routine); Ordered 04/26/21 Ordered By: aJmes Gaspar Admission Data Admit Date/Time: 04/25/21 00:28 Attending Provider: James Gaspar Admit Provider: Rudy Ricci Primary Care Provider: PCP,NO Other Providers: Rudy Ricci ; Gray Miranda ; Maribell Copeland ; Dr Willi ; Sonia Clark ; Gerardo Kaur Other Interventions: Discharge Summary Assessment (RN) Last Done: 04/26/21 14:28
[2021-04-27] MEDS ORDERED: GABAPENTIN 600 MG TAB PO SCH
--- NOTE | 2021-04-27 10:26 | Electrocardiogram Report ---
Test Reason : Blood Pressure : / mmHG Vent. Rate : 146 BPM Atrial Rate : 146 BPM P-R Int : 124 ms QRS Dur : 082 ms QT Int : 260 ms P-R-T Axes : 074 -05 048 degrees QTc Int : 405 ms Poor data quality, interpretation may be adversely affected Sinus tachycardia Otherwise normal ECG When compared with ECG of 16-NOV-2019 15:28, Premature ventricular complexes are no longer Present HR has increased Confirmed by Eduar Tolentino ([id number]) on 04/27/2021 10:26:38 AM Referred By: REFERRED SELF Confirmed By:Eduar Tolentino
[2021-04-28] MEDS ORDERED: GABAPENTIN 600 MG TAB PO SCH (12:00)
== END 2021-04-26 14:41 | disposition home or self-care (01) ==
LOC: ED 21:26 → 2N 04-25 00:28 → INTOOBSV 04-25 00:28 → 2N 04-25 02:26
DX: E83.42 Hypomagnesemia; R19.7 Diarrhea, unspecified; D70.9 Neutropenia, unspecified; R79.89 Other specified abnormal findings of blood chemistry; Z20.822 Contact with and (suspected) exposure to COVID-19; R11.2 Nausea with vomiting, unspecified; F10.10 Alcohol abuse, uncomplicated; D69.6 Thrombocytopenia, unspecified; E87.6 Hypokalemia; Z88.8 Allergy status to other drugs, medicaments and biological substances

== ENCOUNTER 2021-05-21 15:59 | Inpatient (IN) ==
[2021-05-21] MEDS ORDERED: THIAMINE HCL 200 MG in SODIUM CHLORIDE 0.9% 50 ML IV STA (16:27)
[2021-05-21] MEDS ORDERED: ONDANSETRON INJ 2 MG/ML 2 ML VIAL IV STA (16:30)
[2021-05-21] MEDS ORDERED: SODIUM CHLORIDE 0.9% 1000ML 1,000 ML IV SCH (16:30)
--- NOTE | 2021-05-21 16:42 | Emergency Department Note ---
Impression & Plan Alcohol abuse, Sinus tachycardia, Hypomagnesemia, Alcohol intoxication ED Provider Note NAME: SERJIO CABA AGE: 25 SEX: M : 1995 ARRIVES VIA: Walk-In INFORMANT: Patient, ED PROVIDER(S): Gregorio Bustamante DO CHIEF COMPLAINT: Alcohol withdrawal HPI: The patient is a 25-year-old male who presented to the emergency department for an evaluation of alcohol withdrawal. The patient states he drinks a large amount of vodka every day. He has done this for many years. He states he stopped drinking alcohol approximately 3 days ago. He was living in his grandmother's home but was kicked out of his living situation. The patient states he had a syncopal episode. He states he has had these before after having alcohol withdrawal. He came to the emergency department today for further evaluation. He complains of headache and neck pain. He also complains of chest pain and difficulty breathing. He denies having any fever. He denies having any lower extremity swelling. He is unsure if he had a seizure today. He states has been compliant with all of his usual outpatient medications. The patient denies having any drug use. ROS: See above HPI for pertinent positives & negatives. A total of 10 systems reviewed and were otherwise negative. PAST MEDICAL HISTORY: See Below PAST SURGICAL HISTORY: See Below FAMILY HISTORY: See Below SOCIAL HISTORY: See Below HOME MEDICATIONS: See Below ALLERGIES: See Below VITALS: See Below PHYSICAL EXAMINATION: GENERAL: The patient is awake and alert. The patient is somewhat anxious appearing. EYES: The conjunctivae are clear. The pupils are dilated and reactive. EARS, NOSE, MOUTH AND THROAT: The nose is without any evidence of any deformity. Mucous membranes are moist. NECK: The neck is nontender and supple. RESPIRATORY: Normal respiratory effort is noted there is no evidence of wheezing rhonchi or rales CARDIOVASCULAR: Tachycardia cardiac rate with regular rhythm was noted. There was no definite murmur. GASTROINTESTINAL: The abdomen is soft. Abdomen is nontender. MUSCULOSKELETAL/EXTREMITIES: There is no evidence of gross deformity full range of motion is noted in the hips and shoulders. SKIN: There is no obvious evidence of any rash. There are no petechiae, pallor or cyanosis noted. NEUROLOGIC: Patient is awake alert and oriented x3. Patellar tendon reflexes are 2+ bilaterally. The patient does have some word finding difficulty but ultimately appears to have a normal neurologic exam. PSYCH: The patient makes good eye contact. Currently he is denying any suicidal homicidal ideation. MEDICAL DECISION MAKING: The patient is a 25-year-old male who presented to the emergency department for an evaluation of alcohol withdrawal and requesting detox. The patient denied having any alcohol over the last 3 days. He also stated that he had a syncopal episode and struck his head. The patient appeared to be somewhat obtunded on my first physical exam. His pupils are very dilated. I was concerned the patient was also under the influence of alcohol. This was proven to be the case on his laboratory studies. He had a very significantly elevated alcohol level. He was treated with IV fluids IV thiamine and IV Zofran. He was reevaluated multiple times. He had a repeat alcohol level which did show a significant drop corresponding to the time that he was observed in the emergency department. The patient was much less clinically intoxicated. He was evaluated by the disability case manager in the emergency department to discuss possible treatment and possible detox options. The patient was not amenable to any outpatient programs. Given the patient's history I do feel very concerned that he may have very severe withdrawal symptoms if he is allowed to drop his alcohol any further. He was treated with a small dose of Ativan. I discussed the patient's condition with the on-call [facility] hospitalist. They have agreed to evaluate the patient in the emergency department for further management and disposition. Triage Nursing notes reviewed. Prior medical records reviewed Vital Signs: reviewed and remarkable for tachycardia. Differential diagnosis: Overdose, toxicologic, infection, hypoglycemia, electrolyte abnormalities, cardiac sources, intracerebral event, neurologic, trauma, as well as other pathologies. ER treatment provided: See below Diagnostics interpreted by me: ECG: EKG was obtained in the emergency department. My interpretation is sinus tachycardia 117 bpm. There is no ectopy. There was no acute ST segment abnormalities noted. This was compared to a tracing from April 27, 2021. No significant changes were noted. Cardiac Monitoring: An order was placed for continuous cardiac monitoring. The monitor shows a rate of 115 bpm with sinus tachycardia rhythm. Laboratory studies: As stated above and show below. Imaging studies: See below Consultation(s): [id number]: Dr. Ricci was notified about the patient. He will evaluate the patient in the emergency department. Past Med/Surg History Medical History (Updated 05/21/21 @ 22:13 by Gregorio Bustamante DO) Alcohol abuse Alcohol withdrawal seizure Hematoma TONGUE Post traumatic stress disorder Thrombocytopenia PT UNAWARE Surgical History Hx of unilateral orchiectomy S/P cholecystectomy Family History Father Unknown family medical history Mother Unknown family medical history Denies family history of Diabetes Heart disease Social History Smoking Status: Never smoker Second Hand Exposure: No; Hx Alcohol Use: Yes Alcohol type: beer, wine and hard liquor Alcohol Intake Frequency Comment: History of heavy alcohol use; last drink 06/27 Hx Substance Use: No Preferred Language: Georgian Communication Ability: Effective Visual Impairment: No Limitations Price Analyst Required: No Beliefs That Will Affect Care: None marital status: Single Current Living Situation: Alone current occupational status: 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 Feels Safe at Home: Yes Assistive Devices: None Allergies Allergies Allergy/AdvReac Type Severity Reaction Status Date / Time blue dye AdvReac Intermediate Vomiting Verified 05/21/21 16:52 levetiracetam AdvReac Intermediate overly Verified 05/21/21 16:52 emotional red dye AdvReac Intermediate Vomiting Verified 05/21/21 16:52 Home Meds Home Medications Medication Instructions Recorded Confirmed famotidine 20 mg tablet 20 mg PO QAM 05/21/21 05/21/21 ([id number]-360 (famotidine)) potassium 99 mg tablet 0 mg PO QAM 05/21/21 05/21/21 Results & Data (ED) Vital Signs Vital Signs - 24 hr 05/21/21 16:09 05/21/21 16:18 05/21/21 16:25 Temperature 36.8 C Temperature Source Temporal Artery Scan Pulse Rate 148 H 123 H Pulse Rate [Carotid] Pulse Rate from SpO2 Sensor 123 H Pulse Rhythm Pulse Rhythm [Carotid] Pulse Strength [Carotid] Respiratory Rate 18 18 Respiratory Effort / Characteristics Non-Labored Spontaneous Respiratory Depth Normal Respiratory Pattern Regular Blood Pressure 110/69 128/91 Blood Pressure [Left Arm] Blood Pressure Mean 82 103 Blood Pressure Mean [Left Arm] Blood Pressure Position Sitting Blood Pressure Position [Left Arm] Pulse Oximetry 96 95 93 Oxygen Delivery Method Room Air Room Air Room Air Sepsis Recent Fever Within 48 Hours No Sepsis New/Unexplained Change in Mental Status N/A Sepsis Action Taken by Nursing No Action Required 05/21/21 16:30 05/21/21 16:41 05/21/21 17:00 Temperature Temperature Source Pulse Rate 118 H 128 H 117 H Pulse Rate [Carotid] Pulse Rate from SpO2 Sensor 123 H 119 H Pulse Rhythm Regular Pulse Rhythm [Carotid] Pulse Strength [Carotid] Respiratory Rate 19 22 15 Respiratory Effort / Characteristics Respiratory Depth Respiratory Pattern Blood Pressure 127/88 130/90 Blood Pressure [Left Arm] Blood Pressure Mean 101 103 Blood Pressure Mean [Left Arm] Blood Pressure Position Blood Pressure Position [Left Arm] Pulse Oximetry 95 95 94 Oxygen Delivery Method Room Air Room Air Room Air Sepsis Recent Fever Within 48 Hours Sepsis New/Unexplained Change in Mental Status Sepsis Action Taken by Nursing 05/21/21 18:35 05/21/21 18:40 05/21/21 19:00 Temperature Temperature Source Pulse Rate 122 H Pulse Rate [Carotid] Pulse Rate from SpO2 Sensor 137 H 143 H 121 H Pulse Rhythm Pulse Rhythm [Carotid] Pulse Strength [Carotid] Respiratory Rate 21 20 18 Respiratory Effort / Characteristics Respiratory Depth Respiratory Pattern Blood Pressure 122/83 Blood Pressure [Left Arm] Blood Pressure Mean 96 Blood Pressure Mean [Left Arm] Blood Pressure Position Blood Pressure Position [Left Arm] Pulse Oximetry 95 96 95 Oxygen Delivery Method Room Air Room Air Room Air Sepsis Recent Fever Within 48 Hours Sepsis New/Unexplained Change in Mental Status Sepsis Action Taken by Nursing 05/21/21 19:30 05/21/21 20:00 05/21/21 20:30 Temperature Temperature Source Pulse Rate 124 H 124 H 117 H Pulse Rate [Carotid] 126 H Pulse Rate from SpO2 Sensor 125 H 125 H 119 H Pulse Rhythm Pulse Rhythm [Carotid] Regular Pulse Strength [Carotid] Normal Respiratory Rate 30 H 14 11 L Respiratory Effort / Characteristics Non-Labored Respiratory Depth Normal Respiratory Pattern Blood Pressure 120/87 116/76 116/77 Blood Pressure [Left Arm] 116/76 Blood Pressure Mean 98 89 90 Blood Pressure Mean [Left Arm] 89 Blood Pressure Position Blood Pressure Position [Left Arm] Sitting Pulse Oximetry 96 96 92 Oxygen Delivery Method Room Air Sepsis Recent Fever Within 48 Hours Sepsis New/Unexplained Change in Mental Status Sepsis Action Taken by Nursing 05/21/21 21:00 Temperature Temperature Source Pulse Rate 115 H Pulse Rate [Carotid] Pulse Rate from SpO2 Sensor 120 H Pulse Rhythm Pulse Rhythm [Carotid] Pulse Strength [Carotid] Respiratory Rate 20 Respiratory Effort / Characteristics Respiratory Depth Respiratory Pattern Blood Pressure 127/72 Blood Pressure [Left Arm] Blood Pressure Mean 90 Blood Pressure Mean [Left Arm] Blood Pressure Position Blood Pressure Position [Left Arm] Pulse Oximetry 95 Oxygen Delivery Method Sepsis Recent Fever Within 48 Hours Sepsis New/Unexplained Change in Mental Status Sepsis Action Taken by Retirement Medications Current Medication List: was personally reviewed by me Laboratory Data Attestation: I reviewed the patient's lab results. Result diagrams: 05/21/21 16:53 05/21/21 16:53 Lab Results 05/21/21 05/21/21 05/21/21 Range/Units 16:40 16:50 16:50 WBC (4.8-10.8) K/uL RBC (4.7-6.1) M/uL Hgb (14.0-18.0) g/dL Hct (42-52) % MCV (80-100) fL MCH (25-34) pg MCHC (32-36) g/dL RDW Std Deviation (36.4-46.3) fL RDW Coeff of Phill (11.5-14.5) % Plt Count (130-400) K/uL MPV (7.4-10.4) fL Immature Gran % (Auto) % Neut % (Auto) % Lymph % (Auto) % Graves % (Auto) % Eos % (Auto) % Baso % (Auto) % Neut # (Auto) (1.4-6.5) K/uL Lymph # (Auto) (1.2-3.4) K/uL Graves # (Auto) (0.11-0.59) K/uL Eos # (Auto) (0-0.5) K/uL Baso # (Auto) (0-0.2) K/uL Immature Gran # (Auto) (0.00-0.02) K/uL PT INR APTT PTT Ratio Sodium (136-145) mmol/L Potassium (3.5-5.1) mmol/L Chloride (98-107) mmol/L Carbon Dioxide (21-32) mmol/L Anion Gap (3-11) BUN (7-18) mg/dl Creatinine (0.6-1.4) mg/dl Est Cr Clr Drug Dosing ml/min Est GFR ( Amer) ml/min Est GFR (Non-Af Amer) ml/min BUN/Creatinine Ratio (10-20) Glucose (70-99) mg/dl POC Glucose 102 H (70-99) mg/dl Calcium (8.5-10.1) mg/dl Magnesium (1.8-2.4) mg/dl Total Bilirubin (0.2-1) mg/dl AST (15-37) U/L ALT (12-78) U/L Alkaline Phosphatase (45-117) U/L Total Creatine Kinase (39-308) U/L Troponin I (0-0.045) ng/ml Total Protein (6.4-8.2) gm/dl Albumin (3.4-5.0) gm/dl Globulin (2.5-4.0) gm/dl Albumin/Globulin Ratio (0.9-2) Lipase (73-393) U/L Specimen Hemolysis Urine Color Urine Appearance (Clear) Urine pH (4.5-7.5) Ur Specific [place] (1.000-1.030) Urine Protein (Negative) Urine Glucose (UA) (Negative) Urine Ketones (Negative) Urine Blood (Negative) Urine Nitrite (Negative) Urine Bilirubin (Negative) Urine Urobilinogen (Negative) Ur Leukocyte Esterase (Negative) Urine WBC (Auto) (0-5) /hpf Urine RBC (Auto) (0-4) /hpf U Hyaline Cast (Auto) (0-5) /lpf U Epithel Cells (Auto) (0-5) /lpf Urine Bacteria (Auto) (Negative) Ur Renal Epithelial Cell (0-5) /lpf Salicylates (2.8-20) mg/dl Urine Opiates Screen (Neg) Ur Methadone, Qual (Neg) Acetaminophen (10-30) ug/ml Urine Barbiturates (Neg) Ur Phencyclidine (PCP) (Neg) U Amphetamin/Meth Scrn (Neg) MDMA (Ecstasy) Screen (Neg) U Benzodiazepines Scrn (Neg) Ur Cocaine Metabolite (Neg) U Marijuana (THC) Screen (Neg) Ethyl Alcohol mg/dL (0-3) mg/dl COVID-19 Eval Order Covid19 at [facility] SARS-CoV-2 (PCR) NEGATIVE (Negative) 05/21/21 05/21/2105/21/21 Range/Units 16:53 16:53 16:53 WBC (4.8-10.8) K/uL RBC (4.7-6.1) M/uL Hgb (14.0-18.0) g/dL Hct (42-52) % MCV (80-100) fL MCH (25-34) pg MCHC (32-36) g/dL RDW Std Deviation (36.4-46.3) fL RDW Coeff of Phill (11.5-14.5) % Plt Count (130-400) K/uL MPV (7.4-10.4) fL Immature Gran % (Auto) % Neut % (Auto) % Lymph % (Auto) % Graves % (Auto) % Eos % (Auto) % Baso % (Auto) % Neut # (Auto) (1.4-6.5) K/uL Lymph # (Auto) (1.2-3.4) K/uL Graves # (Auto) (0.11-0.59) K/uL Eos # (Auto) (0-0.5) K/uL Baso # (Auto) (0-0.2) K/uL Immature Gran # (Auto) (0.00-0.02) K/uL PT Cancelled INR Cancelled APTT Cancelled PTT Ratio Cancelled Sodium 146 H (136-145) mmol/L Potassium 3.5 (3.5-5.1) mmol/L Chloride 108 H (98-107) mmol/L Carbon Dioxide 28 (21-32) mmol/L Anion Gap 11.0 (3-11) BUN 6 L (7-18) mg/dl Creatinine 1.06 (0.6-1.4) mg/dl Est Cr Clr Drug Dosing 119.3 ml/min Est GFR ( Amer) 111.7 ml/min Est GFR (Non-Af Amer) 96.4 ml/min BUN/Creatinine Ratio 5.3 L (10-20) Glucose 104 H (70-99) mg/dl POC Glucose (70-99) mg/dl Calcium 8.2 L (8.5-10.1) mg/dl Magnesium 1.7 L (1.8-2.4) mg/dl Total Bilirubin 0.5 (0.2-1) mg/dl AST 129 H (15-37) U/L ALT 110 H (12-78) U/L Alkaline Phosphatase 204 H (45-117) U/L Total Creatine Kinase 171 (39-308) U/L Troponin I < 0.015 (0-0.045) ng/ml Total Protein 7.4 (6.4-8.2) gm/dl Albumin 3.9 (3.4-5.0) gm/dl Globulin 3.5 (2.5-4.0) gm/dl Albumin/Globulin Ratio 1.1 (0.9-2) Lipase 282 (73-393) U/L Specimen Hemolysis Urine Color Urine Appearance (Clear) Urine pH (4.5-7.5) Ur Specific Brain[place] (1.000-1.030) Urine Protein (Negative) Urine Glucose (UA) (Negative) Urine Ketones (Negative) Urine Blood (Negative) Urine Nitrite (Negative) Urine Bilirubin (Negative) Urine Urobilinogen (Negative) Ur Leukocyte Esterase (Negative) Urine WBC (Auto) (0-5) /hpf Urine RBC (Auto) (0-4) /hpf U Hyaline Cast (Auto) (0-5) /lpf U Epithel Cells (Auto) (0-5) /lpf Urine Bacteria (Auto) (Negative) Ur Renal Epithelial Cell (0-5) /lpf Salicylates < 1.7 L (2.8-20) mg/dl Urine Opiates Screen (Neg) Ur Methadone, Qual (Neg) Acetaminophen < 2 L (10-30) ug/ml Urine Barbiturates (Neg) Ur Phencyclidine (PCP) (Neg) U Amphetamin/Meth Scrn (Neg) MDMA (Ecstasy) Screen (Neg) U Benzodiazepines Scrn (Neg) Ur Cocaine Metabolite (Neg) U Marijuana (THC) Screen (Neg) Ethyl Alcohol mg/dL (0-3) mg/dl COVID-19 Eval Order SARS-CoV-2 (PCR) (Negative) 05/21/21 05/21/21 05/21/21 Range/Units 16:53 16:53 17:54 WBC 7.13 (4.8-10.8) K/uL RBC 5.03 (4.7-6.1) M/uL Hgb 16.9 (14.0-18.0) g/dL Hct 48.5 (42-52) % MCV 96.4 (80-100) fL MCH 33.6 (25-34) pg MCHC 34.8 (32-36) g/dL RDW Std Deviation 50.3 H (36.4-46.3) fL RDW Coeff of Phill 14.2 (11.5-14.5) % Plt Count 220 (130-400) K/uL MPV 9.6 (7.4-10.4) fL Immature Gran % (Auto) 0.3 % Neut % (Auto) 84.0 % Lymph % (Auto) 8.8 % Graves % (Auto) 6.2 % Eos % (Auto) 0.4 % Baso % (Auto) 0.3 % Neut # (Auto) 5.99 (1.4-6.5) K/uL Lymph # (Auto) 0.63 L (1.2-3.4) K/uL Graves # (Auto) 0.44 (0.11-0.59) K/uL Eos # (Auto) 0.03 (0-0.5) K/uL Baso # (Auto) 0.02 (0-0.2) K/uL Immature Gran # (Auto) 0.02 (0.00-0.02) K/uL PT 10.3 INR 1.0 APTT 24.3 PTT Ratio 0.9 Sodium (136-145) mmol/L Potassium (3.5-5.1) mmol/L Chloride (98-107) mmol/L Carbon Dioxide (21-32) mmol/L Anion Gap (3-11) BUN (7-18) mg/dl Creatinine (0.6-1.4) mg/dl Est Cr Clr Drug Dosing ml/min Est GFR ( Amer) ml/min Est GFR (Non-Af Amer) ml/min BUN/Creatinine Ratio (10-20) Glucose (70-99) mg/dl POC Glucose (70-99) mg/dl Calcium (8.5-10.1) mg/dl Magnesium (1.8-2.4) mg/dl Total Bilirubin (0.2-1) mg/dl AST (15-37) U/L ALT (12-78) U/L Alkaline Phosphatase (45-117) U/L Total Creatine Kinase (39-308) U/L Troponin I (0-0.045) ng/ml Total Protein (6.4-8.2) gm/dl Albumin (3.4-5.0) gm/dl Globulin (2.5-4.0) gm/dl Albumin/Globulin Ratio (0.9-2) Lipase (73-393) U/L Specimen Hemolysis Urine Color Urine Appearance (Clear) Urine pH (4.5-7.5) Ur Specific [place] (1.000-1.030) Urine Protein (Negative) Urine Glucose (UA) (Negative) Urine Ketones (Negative) Urine Blood (Negative) Urine Nitrite (Negative) Urine Bilirubin (Negative) Urine Urobilinogen (Negative) Ur Leukocyte Esterase (Negative) Urine WBC (Auto) (0-5) /hpf Urine RBC (Auto) (0-4) /hpf U Hyaline Cast (Auto) (0-5) /lpf U Epithel Cells (Auto) (0-5) /lpf Urine Bacteria (Auto) (Negative) Ur Renal Epithelial Cell (0-5) /lpf Salicylates (2.8-20) mg/dl Urine Opiates Screen (Neg) Ur Methadone, Qual (Neg) Acetaminophen (10-30) ug/ml Urine Barbiturates (Neg) Ur Phencyclidine (PCP) (Neg) U Amphetamin/Meth Scrn (Neg) MDMA (Ecstasy) Screen (Neg) U Benzodiazepines Scrn (Neg) Ur Cocaine Metabolite (Neg) U Marijuana (THC) Screen (Neg) Ethyl Alcohol mg/dL 430.5 H (0-3) mg/dl COVID-19 Eval Order SARS-CoV-2 (PCR) (Negative) 05/21/21 05/21/21 05/21/21 Range/Units 19:15 19:15 20:48 WBC (4.8-10.8) K/uL RBC (4.7-6.1) M/uL Hgb (14.0-18.0) g/dL Hct (42-52) % MCV (80-100) fL MCH (25-34) pg MCHC (32-36) g/dL RDW Std Deviation (36.4-46.3) fL RDW Coeff of Phill (11.5-14.5) % Plt Count (130-400) K/uL MPV (7.4-10.4) fL Immature Gran % (Auto) % Neut % (Auto) % Lymph % (Auto) % Graves % (Auto) % Eos % (Auto) % Baso % (Auto) % Neut # (Auto) (1.4-6.5) K/uL Lymph # (Auto) (1.2-3.4) K/uL Graves # (Auto) (0.11-0.59) K/uL Eos # (Auto) (0-0.5) K/uL Baso # (Auto) (0-0.2) K/uL Immature Gran # (Auto) (0.00-0.02) K/uL PT INR APTT PTT Ratio Sodium (136-145) mmol/L Potassium (3.5-5.1) mmol/L Chloride (98-107) mmol/L Carbon Dioxide (21-32) mmol/L Anion Gap (3-11) BUN (7-18) mg/dl Creatinine (0.6-1.4) mg/dl Est Cr Clr Drug Dosing ml/min Est GFR ( Amer) ml/min Est GFR (Non-Af Amer) ml/min BUN/Creatinine Ratio (10-20) Glucose (70-99) mg/dl POC Glucose (70-99) mg/dl Calcium (8.5-10.1) mg/dl Magnesium (1.8-2.4) mg/dl Total Bilirubin (0.2-1) mg/dl AST (15-37) U/L ALT (12-78) U/L Alkaline Phosphatase (45-117) U/L Total Creatine Kinase (39-308) U/L Troponin I (0-0.045) ng/ml Total Protein (6.4-8.2) gm/dl Albumin (3.4-5.0) gm/dl Globulin (2.5-4.0) gm/dl Albumin/Globulin Ratio (0.9-2) Lipase (73-393) U/L Specimen Hemolysis Urine Color Yellow Urine Appearance Clear (Clear) Urine pH 6.5 (4.5-7.5) Ur Specific Brain[place] 1.014 (1.000-1.030) Urine Protein 1+ H (Negative) Urine Glucose (UA) Negative (Negative) Urine Ketones 1+ H (Negative) Urine Blood Negative (Negative) Urine Nitrite Negative (Negative) Urine Bilirubin Negative (Negative) Urine Urobilinogen Negative (Negative) Ur Leukocyte Esterase Negative (Negative) Urine WBC (Auto) 1-5 (0-5) /hpf Urine RBC (Auto) 0-4 (0-4) /hpf U Hyaline Cast (Auto) 10-30 H (0-5) /lpf U Epithel Cells (Auto) >30 H (0-5) /lpf Urine Bacteria (Auto) Negative (Negative) Ur Renal Epithelial Cell 0-5 (0-5) /lpf Salicylates (2.8-20) mg/dl Urine Opiates Screen Neg (Neg) Ur Methadone, Qual Neg (Neg) Acetaminophen (10-30) ug/ml Urine Barbiturates Neg (Neg) Ur Phencyclidine (PCP) Neg (Neg) U Amphetamin/Meth Scrn Neg (Neg) MDMA (Ecstasy) Screen Neg (Neg) U Benzodiazepines Scrn Neg (Neg) Ur Cocaine Metabolite Neg (Neg) U Marijuana (THC) Screen Neg (Neg) Ethyl Alcohol mg/dL 297.5 H (0-3) mg/dl COVID-19 Eval Order SARS-CoV-2 (PCR) (Negative) Administered Medications Discontinued Medications Sodium Chloride (Nss 1000ml) 1,000 mls @ 999 mls/hr IV .Q1H1M SULMA Stop: 05/21/21 17:30 Last Infusion: 05/21/21 18:25 Dose: 0 mls/hr Documented by: [id number] Admin: 05/21/21 17:00 Dose: 999 mls/hr Documented by: [id number] Thiamine HCl 200 mg/ Sodium (Chloride) 52 mls @ 208 mls/hr IV NOW STA Stop: 05/21/21 16:41 Last Infusion: 05/21/21 17:22 Dose: 0 mls/hr Documented by: [id number] Admin: 05/21/21 17:07 Dose: 208 mls/hr Documented by: [id number] Magnesium Sulfate/Dextrose (Magnesium Sulfate / D5w) 1 gm in 100 mls @ 100 mls/hr IV Q1H SULMA Stop: 05/21/21 20:21 Last Admin: 05/21/21 19:45 Dose: 100 mls/hr Documented by: [id number] Infusion: 09/16/21 19:43 Dose: 100 mls/hr Documented by: [id number] Admin: 05/21/21 18:43 Dose: 100 mls/hr Documented by: [id number] Sodium Chloride (Nss 1000ml) 1,000 mls @ 999 mls/hr IV .Q1H1M ONE Stop: 05/21/21 19:22 Last Admin: 05/21/21 19:44 Dose: 999 mls/hr Documented by: [id number] Lorazepam (Ativan) 0.5 mg in 1 mls @ 1 mls/min IV NOW STA Stop: 05/21/21 21:32 Last Admin: 05/21/21 21:41 Dose: 1 mls/min Documented by: [id number] Ondansetron HCl (Ondansetron Inj 2 Mg/Ml 2 Ml Vial) 4 mg IV NOW STA Stop: 05/21/21 16:31 Last Admin: 05/21/21 17:04 Dose: 4 mg Documented by: [id number] Imaging Data Radiologist's Impression: Cervical Spine CT 05/21/21 16:27 CT SCAN OF THE CERVICAL SPINE CLINICAL HISTORY: Fall. COMPARISON STUDY: No priors. TECHNIQUE: CT scan of the cervical spine is performed from the skull base to the upper thoracic spine. Images are reviewed in the axial, sagittal, and coronal planes. IV contrast was not administered for this examination. A dose lowering technique was utilized adhering to the principles of ALARA. CT DOSE: 1093.74 mGy.cm FINDINGS: Skeletal structures: The skeletal structures are well mineralized. There is no evidence of fracture or subluxation involving the cervical spine. Vertebral body height and alignment are maintained. There is straightening of the cervical lordosis. The odontoid process and lateral masses are intact. The atlantoaxial articulation is preserved. The spinous processes appear intact. Intervertebral discs: The disc spaces are well maintained. Central canal: Widely patent. Soft tissues: The prevertebral and paraspinous soft tissues are within normal limits. Calvarium: The visualized calvarium at the skull base appears intact. Brain parenchyma: Partially visualized brain parenchyma at the skull base is within normal limits. Sinuses and mastoids: The visualized paranasal sinuses are clear. The mastoid air cells are well pneumatized. Lung apices: Clear as visualized. IMPRESSION: There is no evidence of fracture or subluxation involving the cervical spine. ACT 112: Negative or not required by law. Electronically signed by: Rajan Grove M.D. 05/21/2021 5:51 PM Chest X-Ray 05/21/21 16:27 SINGLE VIEW CHEST CLINICAL HISTORY: Intoxication. Change in mental status. FINDINGS: 2 AP, portable, upright chest radiographs are compared to study dated 04/24/2021. The cardiomediastinal silhouette is unremarkable. The lungs and pleu ral spaces are clear. No pneumothorax is seen. The bony thorax is grossly intact. There is chronic deformity of the distal right clavicle with degenerative change at the right AC joint. IMPRESSION: No active disease in the chest. ACT 112: Negative or not required by law. Electronically signed by: Rajan Grove M.D. 05/21/2021 7:[address] 05/21/21 16:27 CT SCAN OF THE BRAIN WITHOUT IV CONTRAST CLINICAL HISTORY: Fall. Headache. COMPARISON STUDY: CT of the brain dated 08/27/2019. TECHNIQUE: Unenhanced axial CT scan of the brain is performed from the vertex to the skull base. A dose lowering technique was utilized adhering to the principles of ALARA. FINDINGS: Brain parenchyma: The brain parenchyma is normal in appearance. There is no hemorrhage, mass effect, or evidence of acute territorial ischemia by CT criteria. Wen-white matter differentiation is preserved. No extra-axial fluid collection is seen. Ventricles, sulci, cisterns: Normal in configuration. Intracranial vasculature: The visualized intracranial vasculature at the skull base is normal in appearance. Calvarium: There is no depressed calvarial fracture. Sinuses and mastoids: The visualized paranasal sinuses are clear. The mastoid air cells are well pneumatized. Orbits: The bony orbits are grossly intact. IMPRESSION: No acute intracranial abnormality. ACT 112: Negative or not required by law. Electronically signed by: Rajan Grove M.D. 05/21/2021 5:43 PM Discharge Plan Visit Data Chief Complaint: Detox Request Stated Complaint: ALCOHOL DETOX ED Provider: Gregorio Bustamante Discharge Problem: Alcohol abuse, Sinus tachycardia, Hypomagnesemia, Alcohol intoxication Patient Disposition: Being Evaluated by Hospitalist Condition: Good Forms Stand Alone Forms: [facility] [employer], Suicide Prevention Resources Prescriptions Prescriptions: No Action potassium [Potassium-99] 99 mg Tablet 0 mg PO QAM RF: 0 famotidine [Zantac-360 (famotidine)] 20 mg Tablet 20 mg PO QAM RF: 0 Referrals Referrals: PCP,NO [Primary Care Provider] - Discharge Problem: Alcohol intoxication Qualifiers: Complication of substance-induced condition: with unspecified complication Qualified Code(s): F10.929 - Alcohol use, unspecified with intoxication, unspecified
[2021-05-21 17:10] LABS: Basophils # (auto) 0.02 K/uL (0-0.2); Basophils % (auto) 0.3 %; Eosinophils # (auto) 0.03 K/uL (0-0.5); Eosinophils % (auto) 0.4 %; Hematocrit (blood only) 48.5 % (42-52); Hemoglobin 16.9 g/dL (14.0-18.0); Immature Granulocytes # (auto) 0.02 K/uL (0.00-0.02); Immature Granulocytes % (auto) 0.3 %; Lymphocytes # (auto) 0.63 K/uL (1.2-3.4); Lymphocytes % (auto) 8.8 %; Mean Corpuscular Hemoglobin 33.6 pg (25-34); Mean Corpuscular Hgb Conc 34.8 g/dL (32-36); Mean Corpuscular Volume 96.4 fL (80-100); Mean Platelet Volume 9.6 fL (7.4-10.4); Monocytes # (auto) 0.44 K/uL (0.11-0.59); Monocytes % (auto) 6.2 %; Neutrophils # (auto) 5.99 K/uL (1.4-6.5); Platelet Count 220 K/uL (130-400); RDW Coefficient of Variation 14.2 % (11.5-14.5); RDW Standard Deviation 50.3 fL (36.4-46.3); Red Blood Count 5.03 M/uL (4.7-6.1); White Blood Count 7.13 K/uL (4.8-10.8)
[2021-05-21 17:38] LABS: Acetaminophen < 2 ug/ml (10-30); Alanine Aminotransferase 110 U/L (12-78); Albumin Level 3.9 gm/dl (3.4-5.0); Aspartate Aminotransferase 129 U/L (15-37); BUN Creatinine Ratio 5.3 (10-20); Blood Urea Nitrogen 6 mg/dl (7-18); Calcium 8.2 mg/dl (8.5-10.1); Carbon Dioxide 28 mmol/L (21-32); Chloride 108 mmol/L (98-107); Creatinine Clr Calc Pharmacy 119.3 ml/min; Est GFR (African American) 111.7 ml/min; Est GFR (Non-African American) 96.4 ml/min; Glucose 104 mg/dl (70-99); Lipase 282 U/L (73-393); Magnesium 1.7 mg/dl (1.8-2.4); Potassium 3.5 mmol/L (3.5-5.1); Sodium 146 mmol/L (136-145)
[2021-05-21 17:39] LABS: Albumin Globulin Ratio 1.1 (0.9-2); Alkaline Phosphatase 204 U/L (45-117); Bilirubin,Total 0.5 mg/dl (0.2-1); Creatine Kinase 171 U/L (39-308); Globulin 3.5 gm/dl (2.5-4.0); Salicylate < 1.7 mg/dl (2.8-20); Total Protein 7.4 gm/dl (6.4-8.2); Troponin I < 0.015 ng/ml (0-0.045)
--- NOTE | 2021-05-21 17:44 | CT Scan Report ---
CT SCAN OF THE BRAIN WITHOUT IV CONTRAST CLINICAL HISTORY: Fall. Headache. COMPARISON STUDY: CT of the brain dated 08/27/2019. TECHNIQUE: Unenhanced axial CT scan of the brain is performed from the vertex to the skull base. A d ose lowering technique was utilized adhering to the principles of ALARA. FINDINGS: Brain parenchyma: The brain parenchyma is normal in appearance. There is no hemorrhage, mass effect, or evidence of acute territorial ischemia by CT criteria. Wen-white matter differentiation is preser alejandrina. No extra-axial fluid collection is seen. Ventricles, sulci, cisterns: Normal in configuration. Intracranial vasculature: The visualized intracranial vasculature at the skull base is normal in appe arance. Calvarium: There is no depressed calvarial fracture. Sinuses and mastoids: The visualized paranasal sinuses are clear. The mastoid air cells are well pneu matized. Orbits: The bony orbits are grossly intact. IMPRESSION: No acute intracranial abnormality. ACT 112: Negative or not required by law. Electronically signed by: Rajan Grove M.D. 05/21/2021 5:43 PM
--- NOTE | 2021-05-21 17:52 | CT Scan Report ---
CT SCAN OF THE CERVICAL SPINE CLINICAL HISTORY: Fall. COMPARISON STUDY: No priors. TECHNIQUE: CT scan of the cervical spine is performed from the skull base to the upper thoracic spine . Images are reviewed in the axial, sagittal, and coronal planes. IV contrast was not administered fo r this examination. A dose lowering technique was utilized adhering to the principles of ALARA. CT DOSE: 1093.74 mGy.cm FINDINGS: Skeletal structures: The skeletal structures are well mineralized. There is no evidence of fracture o r subluxation involving the cervical spine. Vertebral body height and alignment are maintained. There is straightening of the cervical lordosis. The odontoid process and lateral masses are intact. The a tlantoaxial articulation is preserved. The spinous processes appear intact. Intervertebral discs: The disc spaces are well maintained. Central canal: Widely patent. Soft tissues: The prevertebral and paraspinous soft tissues are within normal limits. Calvarium: The visualized calvarium at the skull base appears intact. Brain parenchyma: Partially visualized brain parenchyma at the skull base is within normal limits. Sinuses and mastoids: The visualized paranasal sinuses are clear. The mastoid air cells are well pneu matized. Lung apices: Clear as visualized. IMPRESSION: There is no evidence of fracture or subluxation involving the cervical spine. ACT 112: Negative or not required by law. Electronically signed by: Rajan Grove M.D. 05/21/2021 5:51 PM
[2021-05-21 18:18] LABS: Partial Thromboplastin Ratio 0.9; Partial Thromboplastin Time 24.3 Seconds (21.0-31.0); Prothrombin Time 10.3 Seconds (9.0-12.0)
[2021-05-21] MEDS ORDERED: SODIUM CHLORIDE 0.9% 1000ML 1,000 ML IV ONE (18:22)
[2021-05-21] MEDS: MAGNESIUM SULFATE / D5W 1 GM/100 ML BAG IV SCH ×2 (18:43→19:45)
--- NOTE | 2021-05-21 19:06 | XRay Report ---
SINGLE VIEW CHEST CLINICAL HISTORY: Intoxication. Change in mental status. FINDINGS: 2 AP, portable, upright chest radiographs are compared to study dated 04/24/2021. The cardio mediastinal silhouette is unremarkable. The lungs and pleural spaces are clear. No pneumothorax is se en. The bony thorax is grossly intact. There is chronic deformity of the distal right clavicle with d egenerative change at the right AC joint. IMPRESSION: No active disease in the chest. ACT 112: Negative or not required by law. Electronically signed by: Rajan Grove M.D. 05/21/2021 7:05 PM
[2021-05-21 19:46] LABS: Appearance Urine Clear (Clear); Bacteria Urine Automated Negative (Negative); Bilirubin Urine Negative (Negative); Blood Urine Negative (Negative); Color Urine Yellow; Epithelial Cell Urine Auto >30 /lpf (0-5); Glucose Urine UA Negative (Negative); Ketones Urine 1+ (Negative); Leukocyte Esterase Urine Negative (Negative); Nitrite Urine Negative (Negative); Protein Urine 1+ (Negative); RBC Urine Automated 0-4 /hpf (0-4); Specific Gravity Urine 1.014 (1.000-1.030); Urobilinogen Urine Negative (Negative); pH Urine 6.5 (4.5-7.5)
[2021-05-21 20:10] LABS: Amphetamines+Metham, Urine Neg (Neg); Barbiturates, Urine Neg (Neg); Benzodiazepine, Urine Neg (Neg); Cocaine, Urine Neg (Neg); MDMA (Ecstacy), Urine Neg (Neg); Methadone, Urine Neg (Neg); Opiate, Urine Neg (Neg); Phencyclidine, Urine Neg (Neg)
[2021-05-21 20:20] LABS: Renal Epithelial Cells Urine 0-5 /lpf (0-5)
[2021-05-21] MEDS ORDERED: LORazepam 0.5 MG/1 ML VIAL IV STA ×2 (21:31→23:48)
[2021-05-22] MEDS ORDERED: GABAPENTIN 1200MG ALCOHOL WITHDRAWAL LOAD PO STA (00:10)
[2021-05-22] MEDS ORDERED: GABAPENTIN 1200MG LOADING DOSE PO STA (00:51)
[2021-05-22] MEDS ORDERED: ATIVAN IV ALCOHOL WITHDRAWL IV PRN (03:16)
[2021-05-22] MEDS ORDERED: LORazepam 3 MG/6 ML VIAL IV PRN (03:16)
[2021-05-22] MEDS ORDERED: NITROGLYCERIN SL 0.4 MG/TAB TAB SL PRN (03:16)
[2021-05-22] MEDS ORDERED: ONDANSETRON INJ 2 MG/ML 2 ML VIAL IV PRN (03:16)
[2021-05-22] MEDS ORDERED: GABAPENTIN 600 MG TAB PO STA (03:21)
[2021-05-22] MEDS ORDERED: MULTI-VITAMIN INFUSION 10 ML, THIAMINE HCL 100 MG, FOLIC ACID 1 MG in SODIUM CHLORIDE 0... IV ONE (04:00)
--- NOTE | 2021-05-22 04:04 | History and Physical Report ---
DATE OF ADMISSION: 05/22/2021. CHIEF COMPLAINT: Alcoholism. HISTORY OF PRESENT ILLNESS: This is a 25-year-old male with past medical history significant for alcohol abuse, alcohol withdrawal seizures, history of thrombocytopenia, history of elevated LFTs. Was recently in the hospital with alcohol withdrawal symptoms and nausea and vomiting, thought to be from gastroenteritis. The patient states he did not drink from 05/13/2021, but his alcohol level is 297. He thinks his system might be not be eliminating alcohol. He was having alcohol induced panic attacks, that is why he came here. He was a little shaky. He was nauseous, he was having diarrhea. Some abdominal discomfort. Denies any chest pain. No shortness of breath, no cough, no fevers, no headache, no blurred vision, no earache, no runny nose, no sore throat. Currently, resting comfortably and hemodynamically stable. ALLERGIES: BLUE DYE, KEPPRA, RED DYE. PAST MEDICAL HISTORY: As mentioned above. PAST SURGICAL HISTORY: Dental surgery, EGD, ERCPs, laparoscopic cholecystectomy, reduction of testes torsion. MEDICATIONS: Currently on Pepcid. FAMILY HISTORY: Significant for sister has kidney disease, brother has sustained tachycardia. SOCIAL HISTORY: Currently lives alone. Denies any smoking. Drinking alcohol heavily. No drug use as per records. REVIEW OF SYSTEMS: As per HPI. Rest of the review of systems is negative. PHYSICAL EXAMINATION: GENERAL: The patient is of moderate build, not in acute distress. VITAL SIGNS: Temperature 36.8, pulse 115, respiratory rate 20, blood pressure 127/72, oxygen 95% on room air. HEENT: Pupils equal, round, and reactive to light. Oral mucosa moist. NECK: No JVD, no neck masses. CARDIOVASCULAR: S1 and S2 heard. Regular rate and rhythm. No murmur, no gallop. RESPIRATORY SYSTEM: Normal AP diameter. No accessory muscle use. No wheezing, no crackles. ABDOMEN: Soft, bowel sounds present, nontender, no distention. CENTRAL NERVOUS SYSTEM: Cranial nerves II-XII grossly intact, nonfocal. EXTREMITIES: No edema, no erythema. LABORATORY DATA: WBC 7.1, hemoglobin 16.9, hematocrit 48.1, platelets 220. PT 10.3, INR 1, APTT 24.3. Sodium 146, potassium 3.5, chloride 108, bicarbonate 28, BUN 6, creatinine 1.06, serum glucose 104, calcium 8.2, magnesium 1.7, total bilirubin 0.5, AST 129, ALT 110, alkaline phosphatase 204. Total creatinine kinase 171, troponin I less than 0.015. Lipase 282. Urinalysis, +1 ketones. Urine drug screen positive for alcohol at 297 SARS-CoV-2 PCR negative. IMAGING DATA: CT of the head, no acute intracranial abnormality. Chest x-ray, no active disease in the chest. Cervical spine CT unremarkable. EKG: Sinus tachycardia at a rate of 117, incomplete right bundle-branch block, no acute ST changes seen. ASSESSMENT AND PLAN: This is a 25-year-old male who presents with ongoing alcoholism. 1. Alcoholism, alcohol withdrawal symptoms: We will give him banana bag and gabapentin alcohol withdrawal protocol. IV Ativan p.r.n. Closely monitor in the [employer] tele.Iv thiamine and folic acid 2. Elevated LFTs secondary to alcoholism: Will follow the repeat labs. 3. Mild hypernatremia: Getting fluids. Will follow the repeat labs in the a.m. 4. Gastroesophageal reflux disease: Continue Pepcid. 5. Deep venous thrombosis prophylaxis: Sequential compression devices. DISPOSITION: Closely monitor in the [employer] tele. Level 1 full code. Expect to discharge home and follow up with family doctor. Job ID: [id number] [facility]
[2021-05-22 04:41] LABS: Albumin Level 3.1 gm/dl (3.4-5.0); Bilirubin Direct 0.2 mg/dl (0-0.2); Bilirubin,Total 0.6 mg/dl (0.2-1); Total Protein 5.6 gm/dl (6.4-8.2)
[2021-05-22] MEDS: D5W AND 1/2NSS 1,000 ML IV SCH ×2 (06:21→16:31)
[2021-05-22] MEDS: LORazepam 2 MG/4 ML VIAL IV PRN ×2 (07:19→11:37)
--- NOTE | 2021-05-22 09:51 | Electrocardiogram Report ---
Test Reason : Blood Pressure : / mmHG Vent. Rate : 117 BPM Atrial Rate : 117 BPM P-R Int : 130 ms QRS Dur : 098 ms QT Int : 332 ms P-R-T Axes : 058 -16 032 degrees QTc Int : 463 ms Sinus tachycardia RSR' or QR pattern in V1 suggests right ventricular conduction delay Borderline ECG When compared with ECG of 24-APR-2021 21:46, T wave amplitude has decreased in Anterior leads Confirmed by Gregorio Nava ([id number]) on 05/22/2021 9:51:16 AM Referred By: REFERRED SELF Confirmed By:Gregorio Nava
[2021-05-22 11:22] LABS: BUN Creatinine Ratio 6.5 (10-20); Blood Urea Nitrogen 5 mg/dl (7-18); Calcium 7.4 mg/dl (8.5-10.1); Carbon Dioxide 28 mmol/L (21-32); Chloride 107 mmol/L (98-107); Creatinine Clr Calc Pharmacy 183.3 ml/min; Est GFR (African American) > 150.0 ml/min; Glucose 93 mg/dl (70-99); Potassium 3.4 mmol/L (3.5-5.1); Sodium 141 mmol/L (136-145)
[2021-05-22] MEDS: GABAPENTIN 600 MG TAB PO SCH ×3 (11:30→23:58)
[2021-05-22] MEDS: FAMOTIDINE 20 MG TAB PO SCH (11:31)
[2021-05-22] MEDS: FOLIC ACID 1 MG in SYRINGE 9.8 ML IV SCH (11:31)
[2021-05-22] MEDS: THIAMINE HCL 100 MG in SYRINGE 9 ML IV SCH (11:31)
[2021-05-22] MEDS: LORazepam 0.5 MG/1 ML VIAL IV PRN ×2 (16:53→23:54)
--- NOTE | 2021-05-22 18:33 | Hospitalist Progress Note ---
Date of Service May 22, 2021 Assessment & Plan Admission and Anticipated Discharge Date Admission Date: May 22, 2021 Results & Data Results & Data ([facility]) Vital Signs (Past 12 Hours) Vital Signs Temp Pulse Pulse Pulse Resp BP Pulse Ox 05/22/21 17:48 113 H 05/22/21 16:34 36.9 C 88 16 133/91 97 05/22/21 16:05 37.1 C 15 98 05/22/21 07:11 37.1 C 104 H 15 135/77 98
[2021-05-22] MEDS: LORazepam 1 MG/2 ML VIAL IV PRN (19:55)
[2021-05-23] MEDS: LORazepam 1 MG/2 ML VIAL IV PRN (03:25)
[2021-05-23] MEDS: FOLIC ACID 1 MG in SYRINGE 9.8 ML IV SCH (08:05)
[2021-05-23] MEDS: THIAMINE HCL 100 MG in SYRINGE 9 ML IV SCH (08:05)
[2021-05-23 09:44] LABS: BUN Creatinine Ratio 4.7 (10-20); Blood Urea Nitrogen 3 mg/dl (7-18); Calcium 8.7 mg/dl (8.5-10.1); Carbon Dioxide 30 mmol/L (21-32); Chloride 104 mmol/L (98-107); Est GFR (African American) > 150.0 ml/min; Est GFR (Non-African American) 131.8 ml/min; Glucose 82 mg/dl (70-99); Potassium 3.2 mmol/L (3.5-5.1); Sodium 139 mmol/L (136-145)
[2021-05-23] MEDS: FAMOTIDINE 20 MG TAB PO SCH (09:55)
[2021-05-23] MEDS: GABAPENTIN 600 MG TAB PO SCH ×2 (09:55→16:35)
[2021-05-23] MEDS: POTASSIUM CHLORIDE CRTAB 20 MEQ TABCR PO SCH ×2 (12:05→20:31)
[2021-05-23] MEDS: SODIUM CHLORIDE 0.9% 1000ML 1,000 ML IV SCH ×2 (13:25→18:14)
--- NOTE | 2021-05-23 14:54 | Hospitalist Progress Note ---
Date of Service May 23, 2021 Assessment & Plan (1) Alcohol withdrawal: Plan: ASSESSMENT AND PLAN: 1. Alcohol withdrawal symptoms improving overall continue Gabapentin protocol, Ativan PRN NSS Thiamine and Folate monitor 2. Elevated LFTs secondary to alcoholism: - improving 3. Mild hypernatremia -- improved from 146 to 139 Hypokalemia -- replace 4. Gastroesophageal reflux disease: no GI symptoms Continue Pepcid. 5. Deep venous thrombosis prophylaxis: Sequential compression devices. encouraged to ambulate frequently DISPOSITION: Expect to discharge home and follow up with family doctor. Admission and Anticipated Discharge Date Admission Date: May 22, 2021 Subjective FF UP FOR ALCOHOL WITHDRAWAL ETC seen resting in bed, comfortable in good spirits states he feels improved compared to yesterday reports anxiety is better no depression tremors are better no sweating, hallucinations, abdominal pain, nausea/vomiting no other symptoms Review of Systems Review of Systems: all noted and negative except for above Physical Exam Physical Exam: General- oriented x 3, not in distress, speaks in sentences with no effort or accessory muscle use Eyes- anicteric Neck- no JVD Lungs- clear BS BL Heart- normal rate, regular rhythm; no murmurs Abdomen- normal bowel sounds, nondistended, soft, nontender Extremities- (+) tremors- mild, no pretibial edema, no calf tenderness Neuro- alert, oriented x 3; no gross focal neurologic deficits Skin- warm & dry Psych- cheerful mood, appropriate affect Results & Data Results & Data ([facility]) Vital Signs (Past 12 Hours) Vital Signs Temp Pulse Resp BP Pulse Ox Pulse Ox 05/23/21 11:09 36.7 C 102 H 20 138/94 95 05/23/21 07:43 36.8 C 71 18 127/87 98 05/23/21 03:19 36.6 C 151 H 20 131/88 99 05/23/21 03:16 99 all noted and reviewed including below
[2021-05-23] MEDS: LORazepam 0.5 MG/1 ML VIAL IV PRN (23:19)
[2021-05-24] MEDS: SODIUM CHLORIDE 0.9% 1000ML 1,000 ML IV SCH ×2 (01:29→09:57)
[2021-05-24] MEDS: LORazepam 0.5 MG/1 ML VIAL IV PRN (04:56)
[2021-05-24] MEDS ORDERED: GABAPENTIN 600 MG TAB PO SCH (06:00)
[2021-05-24 08:50] LABS: BUN Creatinine Ratio 6.5 (10-20); Blood Urea Nitrogen 4 mg/dl (7-18); Calcium 8.5 mg/dl (8.5-10.1); Carbon Dioxide 27 mmol/L (21-32); Chloride 107 mmol/L (98-107); Creatinine Clr Calc Pharmacy 200.8 ml/min; Est GFR (African American) > 150.0 ml/min; Glucose 82 mg/dl (70-99); Potassium 3.5 mmol/L (3.5-5.1); Sodium 140 mmol/L (136-145)
[2021-05-24] MEDS: FAMOTIDINE 20 MG TAB PO SCH (09:58)
[2021-05-24] MEDS: THIAMINE HCL 100 MG in SYRINGE 9 ML IV SCH (09:59)
[2021-05-24] MEDS: FOLIC ACID 1 MG in SYRINGE 9.8 ML IV SCH (09:59)
[2021-05-24] MEDS: POTASSIUM CHLORIDE CRTAB 20 MEQ TABCR PO SCH (09:59)
--- NOTE | 2021-05-24 10:39 | Hospitalist Progress Note ---
Date of Service May 24, 2021 Assessment & Plan (1) Alcohol withdrawal: Plan: ASSESSMENT AND PLAN: 1. Alcohol withdrawal symptoms much improved no signs of alcohol withdrawal this AM placed on Gabapentin protocol, Ativan PRN, NSS, Thiamine and Folate patient declining Alcohol Rehab at this time reports he is currently on Outpatient Counselling strongly advised alcohol cessation patient verbalized understanding and agreement ff up with PCP this week 2. Elevated LFTs secondary to alcoholism: - improving ast 129 to 73 alt 110 to 80 alk phos 204 to 148 - monitor as outpatient 3. Mild hypernatremia -- given IV fluids -- improved from 146 to 139 Hypokalemia -- K 3.4 -- replaced 4. Gastroesophageal reflux disease: -- no GI symptoms Continue Pepcid. 5. Deep venous thrombosis prophylaxis: Sequential compression devices. encouraged to ambulate frequently DISPOSITION: d/c home ff up with PCP this week plan of care discussed with patient in detail and at length all questions answered he is understanding, agreeable, comfortable with the plan of care Admission and Anticipated Discharge Date Admission Date: May 22, 2021 Subjective ff up for alcoholic withdrawal, etc seen resting in bed, sitting up comfortable in good spirits states he feels much better overall denies tremors, sweating, hallucinations denies anxiety, depression, suicidal ideations no abdominal pain, nausea/vomiting no other symptoms states he is ready and would like to go home today Review of Systems Review of Systems: all noted and negative except for above Physical Exam Physical Exam: General- oriented x 3, not in distress, speaks in sentences with no effort or accessory muscle use Eyes- anicteric Neck- no JVD Lungs- clear breath sounds , no crackles/wheezing bilaterally Heart- normal rate, regular rhythm; no murmurs Abdomen- normal bowel sounds, nondistended, soft, no tenderness on all quadrants Extremities- no pretibial edema, no calf tenderness Neuro- alert, oriented x 3; no gross focal neurologic deficits Skin- warm & dry Results & Data Results & Data ([facility]) Vital Signs (Past 12 Hours) Vital Signs Temp Pulse Pulse Resp BP BP Pulse Ox 05/24/21 08:24 36.8 C 81 16 132/87 96 05/24/21 04:00 36.6 C 80 18 130/88 99 05/24/21 01:20 126 H 05/23/21 23:00 36.9 C 70 20 131/92 92 all noted and reviewed including below
--- NOTE | 2021-05-24 10:58 | Discharge Summary ---
Date of Service May 24, 2021 Admission HPI Per Admitting Provider HISTORY OF PRESENT ILLNESS: This is a 25-year-old male with past medical history significant for alcohol abuse, alcohol withdrawal seizures, history of thrombocytopenia, history of elevated LFTs. Was recently in the hospital with alcohol withdrawal symptoms and nausea and vomiting, thought to be from gastroenteritis. The patient states he did not drink from 05/13/2021, but his alcohol level is 297. He thinks his system might be not be eliminating alcohol. He was having alcohol induced panic attacks, that is why he came here. He was a little shaky. He was nauseous, he was having diarrhea. Some abdomi nal discomfort. Denies any chest pain. No shortness of breath, no cough, no fevers, no headache, no blurred vision, no earache, no runny nose, no sore throat. Currently, resting comfortably and hemodynamically stable. Admission Exam (Per Admitting) Constitutional GENERAL: The patient is of moderate build, not in acute distress. VITAL SIGNS: Temperature 36.8, pulse 115, respiratory rate 20, blood pressure 127/72, oxygen 95% on room air. HEENT: Pupils equal, round, and reactive to light. Oral mucosa moist. NECK: No JVD, no neck masses. CARDIOVASCULAR: S1 and S2 heard. Regular rate and rhythm. No murmur, no gallop. RESPIRATORY SYSTEM: Normal AP diameter. No accessory muscle use. No wheezing, no crackles. ABDOMEN: Soft, bowel sounds present, nontender, no distention. CENTRAL NERVOUS SYSTEM: Cranial nerves II-XII grossly intact, nonfocal. EXTREMITIES: No edema, no erythema. Discharge Data Consultations 05/21/21 22:19 ED Decision to Admit Stat Procedures Performed CT SCAN OF THE CERVICAL SPINE CLINICAL HISTORY: Fall. COMPARISON STUDY: No priors. TECHNIQUE: CT scan of the cervical spine is performed from the skull base to the upper thoracic spine. Images are reviewed in the axial, sagittal, and coronal planes. IV contrast was not administered for this examination. A dose lowering technique was utilized adhering to the principles of ALARA. CT DOSE: 1093.74 mGy.cm FINDINGS: Skeletal structures: The skeletal structures are well mineralized. There is no evidence of fracture or subluxation involving the cervical spine. Vertebral body height and alignment are maintained. There is straightening of the cervical lordosis. The odontoid process and lateral masses are intact. The atlantoaxial articulation is preserved. The spinous processes appear intact. Intervertebral discs: The disc spaces are well maintained. Central canal: Widely patent. Soft tissues: The prevertebral and paraspinous soft tissues are within normal limits. Calvarium: The visualized calvarium at the skull base appears intact. Brain parenchyma: Partially visualized brain parenchyma at the skull base is within normal limits. Sinuses and mastoids: The visualized paranasal sinuses are clear. The mastoid air cells are well pneumatized. Lung apices: Clear as visualized. IMPRESSION: There is no evidence of fracture or subluxation involving the cervical spine. ACT 112: Negative or not required by law. CT SCAN OF THE BRAIN WITHOUT IV CONTRAST CLINICAL HISTORY: Fall. Headache. COMPARISON STUDY: CT of the brain dated 08/27/2019. TECHNIQUE: Unenhanced axial CT scan of the brain is performed from the vertex to the skull base. A dose lowering technique was utilized adhering to the principles of ALARA. FINDINGS: Brain parenchyma: The brain parenchyma is normal in appearance. There is no hemorrhage, mass effect, or evidence of acute territorial ischemia by CT criteria. Wen-white matter differentiation is preserved. No extra-axial fluid collection is seen. Ventricles, sulci, cisterns: Normal in configuration. Intracranial vasculature: The visualized intracranial vasculature at the skull base is normal in appearance. Calvarium: There is no depressed calvarial fracture. Sinuses and mastoids: The visualized paranasal sinuses are clear. The mastoid air cells are well pneumatized. Orbits: The bony orbits are grossly intact. IMPRESSION: No acute intracranial abnormality. ACT 112: Negative or not required by law. Hospital Course (1) Alcohol withdrawal: ASSESSMENT AND PLAN: 1. Alcohol withdrawal much improved no signs of alcohol withdrawal this AM placed on Gabapentin protocol, Ativan PRN, NSS, Thiamine and Folate patient declining Alcohol Rehab at this time reports he is currently on Outpatient Counselling strongly advised alcohol cessation patient verbalized understanding and agreement ff up with PCP this week 2. Elevated LFTs secondary to alcoholism: - improving ast 129 to 73 alt 110 to 80 alk phos 204 to 148 - monitor as outpatient 3. Mild hypernatremia -- given IV fluids -- improved from 146 to 139 Hypokalemia -- K 3.4 -- replaced 4. Gastroesophageal reflux disease: -- no GI symptoms Continue Pepcid. 5. Deep venous thrombosis prophylaxis: Sequential compression devices. encouraged to ambulate frequently DISPOSITION: d/c home ff up with PCP this week plan of care discussed with patient in detail and at length all questions answered he is understanding, agreeable, comfortable with the plan of care
[2021-05-25] MEDS ORDERED: GABAPENTIN 600 MG TAB PO SCH (18:00)
[2021-05-25 21:26] LABS: Chlamydia Trach RNA NOT DETECTED (NOT DETECTED); GC (Neis gonorrhoeae) RNA NOT DETECTED (NOT DETECTED)
== END 2021-05-24 14:17 | disposition home or self-care (01) | DRG 897 ==
LOC: ED 15:59 → EDINP 05-22 00:10 → 2N 05-22 16:31

== ENCOUNTER 2024-10-21 16:15 | Inpatient (IN) ==
[2024-10-21] MEDS ORDERED: Ativan IV Alcohol Withdrawal--Active Protocol IV PRN ×2 (16:33→22:56)
[2024-10-21] MEDS ORDERED: LORazepam 2 MG/1 ML VIAL IV PRN ×3 (16:33→22:56)
[2024-10-21 17:02] LABS: Basophils # (auto) 0.04 K/uL (0.00-0.20); Basophils % (auto) 0.8 %; Eosinophils # (auto) 0.03 K/uL (0.00-0.50); Eosinophils % (auto) 0.6 %; Hematocrit (blood only) 47.1 % (42.0-52.0); Hemoglobin 16.8 g/dl (14.0-18.0); Immature Granulocytes # (auto) 0.03 K/uL (0.01-0.20); Immature Granulocytes % (auto) 0.6 %; Lymphocytes # (auto) 2.19 K/uL (1.20-3.40); Lymphocytes % (auto) 42.3 %; Mean Corpuscular Hemoglobin 32.2 pg (25.0-34.0); Mean Corpuscular Hgb Conc 35.7 g/dL (32.0-36.0); Mean Corpuscular Volume 90.2 fL (80.0-100.0); Monocytes # (auto) 0.35 K/uL (0.11-0.59); Monocytes % (auto) 6.8 %; Neutrophils # (auto) 2.54 K/uL (1.40-6.50); Neutrophils % (auto) 48.9 %; Platelet Count 293 K/uL (130-400); RDW Coefficient of Variation 11.7 % (11.5-14.5); RDW Standard Deviation 38.5 fL (36.4-46.3); Red Blood Count 5.22 M/uL (4.70-6.10); White Blood Count 5.18 K/ul (4.8-10.8)
[2024-10-21] MEDS: LORazepam 2 MG/1 ML VIAL IV PRN ×2 (17:15→23:54)
[2024-10-21] MEDS: ONDANSETRON INJ 2 MG/ML 2 ML VIAL IV STA (17:16)
[2024-10-21 17:17] LABS: Albumin Globulin Ratio 1.9 (0.9-2); BUN Creatinine Ratio 6.7 (10-20); Bilirubin,Total 0.5 mg/dl (0.2-1.0); Calcium 8.9 mg/dl (8.6-10.3); Creatinine Clr Calc Pharmacy 147.7 ml/min; Globulin 2.7 gm/dl (2.5-4.0); Magnesium 2.4 mg/dl (1.7-2.4); Potassium 3.9 mmol/L (3.5-5.1); Total Protein 7.7 gm/dl (6.0-8.3)
[2024-10-21 17:23] LABS: Troponin I High Sensitivity 3.9 pg/ml (0-20)
[2024-10-21 17:25] LABS: Prothrombin Time 10.5 Seconds (9.0-12.0)
--- NOTE | 2024-10-21 17:29 | XRay Report ---
EXAM: X-ray chest one-view portable CLINICAL HISTORY: Chest pain PRIORS: 05/21/2021 TECHNIQUE: Single frontal view chest FINDINGS: The chest is well-expanded. No airspace consolidation, effusion or congestive changes. Heart size is normal. No pneumothorax. Trachea is patent. Osseous structures demonstrate no acute abnormality. No radiopaque foreign body. IMPRESSION: No plain film evidence of an acute cardiopulmonary process. Electronically signed by Tanvi Horton 10-21-2024 5:28 PM
--- NOTE | 2024-10-21 17:35 | Emergency Department Note ---
Impression & Plan Alcohol use disorder, Alcohol withdrawal, Alcohol intoxication, Transaminitis ED Provider Note HISTORY OF PRESENT ILLNESS: Patient is a 29-year-old male presenting with alcohol intoxication and requesting alcohol detox. Patient arrives with his ex-boyfriend. Ex-boyfriend provides history. Reports that they recently have gone through a break-up and the patient has been "on a potter" for the last week. Patient reportedly drinks maybe 1-2 drinks a night, but for the last week he has been drinking a case of white claw and multiple handles of vodka a day. Patient reports in the last 24 hours he has drunk "4 handles," however, boyfriend reports that he is not sure if the patient actually has this amount of alcohol. Patient reports he has not been sober in "a very long time." Boyfriend reports that when the patient does try to stop drinking, he gets significant withdrawal symptoms and has had seizures in the past. Boyfriend reports that earlier this week, the patient was reporting that he was trying to "drink myself to ." He is not actively suicidal at this time. Denies any previous suicide attempts. Patient's boyfriend reports patient has not been eating anything all week. Reports his only oral intake has been alcohol. ROS: as above PHYSICAL EXAM: Constitutional: Patient appears in no acute distress. Clinically intoxicated with slurring of speech and smelling of alcohol. HENT: Head: Normocephalic and atraumatic. Eyes: EOMI, PERRL Mouth/Throat: Mucous membranes moist. Neck: Trachea midline. Neck supple. Cardiovascular: Tachycardic with regular rhythm. No murmurs, rubs or gallops. Intact distal pulses. Pulmonary/Chest: No respiratory distress. Breath sounds clear and equal bilaterally. No wheezes or rales. Abdominal: Abdomen soft, no tenderness, rebound or guarding. Musculoskeletal: No edema, tenderness or deformity noted. Skin: Warm and dry. No rash, erythema, pallor or cyanosis Neurological: Alert and keenly responsive. CN II-XII grossly intact MDM: - Vitals signs showed hypertension and tachycardia - History obtained via patient and patient's boyfriend, given patient's significant intoxication. History as above. - Chronic conditions affecting care: alcohol use disorder - Differential diagnoses include, but are not limited to: Alcohol withdrawal; electrolyte abnormality; dehydration; viral syndrome - Order placed for continuous cardiac monitoring. At this time, monitor showed rate of 105 bpm with normal sinus rhythm, per my interpretation. - External medical records reviewed. Discharge summary dated 05/24/2021 was reviewed. Patient was admitted that time for alcohol withdrawal. - Alcohol withdrawal score of 8. Given 1 mg IV ativan. - EKG image interpreted by myself showed normal sinus rhythm. Rate tachycardic at 115 bpm. QT 334. No acute ischemic changes. - Laboratory workup interpreted by myself showed normal WBC; normal PT/INR; elevated anion gap (17); transaminitis (AST 86; ALT 78); normal troponin; normal lipase; elevated alcohol (431.4) - CXR image reviewed by myself is negative for pneumonia, per my interpretation. - UA and UDS ordered - Patient given 4 mg IV zofran for nausea. Patient is alcohol withdrawal score on arrival to the ER was an 8. He was given 1 mg of IV Ativan. - Given PO multivitamin, IV thiamine and IV folic acid. - Significant concern about patient's alcohol withdrawal symptoms with and alcohol blood draw of 431. Will admit for medical detox with the hospitalist service - Discussion was had with patient case coordinator about patient's case and need for admission - Hospitalist, Dr. Ricci, consulted for admission - Patient admitted to [facility] hospitalist service for further evaluation and management. ASSESSMENT AND PLAN: Diagnosis: Alcohol use disorder; alcohol intoxication; alcohol withdrawal; transaminitis Plan: admit Past Med/Surg History Problem List (Updated 10/21/24 @ 19:21 by Yuliana Hagen MD) Transaminitis (Acute) Alcohol intoxication (Acute) Alcohol withdrawal (Acute) Alcohol use disorder (Acute) Alcohol withdrawal Sinus tachycardia (Acute) Alcohol intoxication (Acute) Nausea vomiting and diarrhea Hypomagnesemia (Acute) Abnormal LFTs (Acute) Alcohol withdrawal seizure (Acute) Admitted to intensive care unit Loss of consciousness Abscess of tongue Abrasion of tongue Alcohol use (Acute) Seizure Alcohol withdrawal (Acute) Hypophosphatemia (Acute) Thrombocytopenia (Acute) Tongue abnormality DVT prophylaxis Hypophosphatemia Hypokalemia Vomiting (Acute) Thrombocytopenia Seizure Alcohol abuse (Chronic) S/P cholecystectomy (Chronic) Hx of unilateral orchiectomy (Chronic) Post traumatic stress disorder (Chronic) Family History Father Unknown family medical history Mother Unknown family medical history Denies family history of Diabetes Heart disease Social History Smoking Status: Current every day smoker Tobacco Type: E-cigarettes / Vaping Second Hand Exposure: No; Do You Dip or Chew Tobacco: No; Hx Alcohol Use: Yes Alcohol type: hard liquor Alcohol Intake Frequency Comment: History of heavy alcohol use; last drink 06/27 Hx Substance Use: No Preferred Language: Polish Communication Ability: Effective Visual Impairment: No Limitations 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 Required: No Beliefs That Will Affect Care: None marital status: Single Current Living Situation: Family 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 occupational status: 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 Feels Safe at Home: Yes Assistive Devices: None Allergies Allergies Allergy/AdvReac Type Severity Reaction Status Date / Time blue dye AdvReac Intermediate Vomiting Verified 05/21/21 16:52 levetiracetam AdvReac Intermediate overly Verified 05/21/21 16:52 emotional red dye AdvReac Intermediate Vomiting Verified 05/21/21 16:52 Home Meds Home Medications Medication Instructions Recorded Confirmed famotidine 20 mg tablet 20 mg PO QAM 05/21/21 05/21/21 (Zantac-360 (famotidine)) Previous Rx's Medication Instructions Recorded gabapentin 600 mg tablet 600 mg PO DAILY #1 tab 05/24/21 multivitamin 1 tab PO DAILY #30 tabs 05/24/21 potassium chloride 20 mEq 20 meq PO DAILY #7 tabs 05/24/21 tablet,extended release(part/cryst) (Klor-Con M) Results & Data (ED) Vital Signs Vital Signs - 24 hr 10/21/24 16:27 10/21/24 16:45 10/21/24 16:48 Temperature 36.4 C L Temperature Source Temporal Artery Scan Pulse Rate 135 H 114 H 126 H Pulse Rate [Apical] Pulse Rate from SpO2 Sensor 115 H Respiratory Rate 18 19 Respiratory Effort / Characteristics Non-Labored Respiratory Depth Normal Respiratory Pattern Regular Blood Pressure 160/91 H Blood Pressure [Left Arm] Blood Pressure Mean 114 Blood Pressure Mean [Left Arm] Pulse Oximetry 96 91 Oxygen Delivery Method Room Air Sepsis Recent Fever Within 48 Hours No Sepsis New/Unexplained Change in Mental Status N/A Sepsis Action Taken by Nursing No Action Required 10/21/24 16:50 10/21/24 16:52 10/21/24 17:00 Temperature Temperature Source Pulse Rate 118 H 116 H Pulse Rate [Apical] Pulse Rate from SpO2 Sensor 116 H Respiratory Rate 21 Respiratory Effort / Characteristics Respiratory Depth Respiratory Pattern Blood Pressure Blood Pressure [Left Arm] Blood Pressure Mean Blood Pressure Mean [Left Arm] Pulse Oximetry 96 96 97 Oxygen Delivery Method Room Air Room Air Sepsis Recent Fever Within 48 Hours Sepsis New/Unexplained Change in Mental Status Sepsis Action Taken by Nursing 10/21/24 17:00 10/21/24 17:12 10/21/24 17:30 Temperature Temperature Source Pulse Rate 113 H Pulse Rate [Apical] Pulse Rate from SpO2 Sensor 112 H Respiratory Rate 17 Respiratory Effort / Characteristics Respiratory Depth Respiratory Pattern Blood Pressure 138/95 121/87 Blood Pressure [Left Arm] Blood Pressure Mean 107 100 Blood Pressure Mean [Left Arm] Pulse Oximetry 92 Oxygen Delivery Method Sepsis Recent Fever Within 48 Hours Sepsis New/Unexplained Change in Mental Status Sepsis Action Taken by Nursing 10/21/24 17:54 10/21/24 17:57 10/21/24 18:00 Temperature Temperature Source Pulse Rate 104 H 103 H Pulse Rate [Apical] Pulse Rate from SpO2 Sensor 103 H 106 H Respiratory Rate 16 19 Respiratory Effort / Characteristics Respiratory Depth Respiratory Pattern Blood Pressure 130/83 Blood Pressure [Left Arm] Blood Pressure Mean 97 Blood Pressure Mean [Left Arm] Pulse Oximetry 95 98 Oxygen Delivery Method Sepsis Recent Fever Within 48 Hours Sepsis New/Unexplained Change in Mental Status Sepsis Action Taken by Nursing 10/21/24 18:12 10/21/24 18:15 10/21/24 18:21 Temperature 37.1 C Temperature Source Oral Pulse Rate 106 H 102 H Pulse Rate [Apical] 99 H Pulse Rate from SpO2 Sensor 106 H 105 H Respiratory Rate 15 22 16 Respiratory Effort / Characteristics Respiratory Depth Respiratory Pattern Blood Pressure Blood Pressure [Left Arm] 130/83 Blood Pressure Mean Blood Pressure Mean [Left Arm] 98 Pulse Oximetry 98 96 96 Oxygen Delivery Method Room Air Sepsis Recent Fever Within 48 Hours Sepsis New/Unexplained Change in Mental Status Sepsis Action Taken by Nursing Laboratory Data 10/21/24 16:45 10/21/24 16:45 Lab Results 10/21/24 Range/Units 16:45 WBC 5.18 (4.8-10.8) K/ul RBC 5.22 (4.70-6.10) M/uL Hgb 16.8 (14.0-18.0) g/dl Hct 47.1 (42.0-52.0) % MCV 90.2 (80.0-100.0) fL MCH 32.2 (25.0-34.0) pg MCHC 35.7 (32.0-36.0) g/dL RDW Std Deviation 38.5 (36.4-46.3) fL RDW Coeff of Phill 11.7 (11.5-14.5) % Plt Count 293 (130-400) K/uL MPV 9.0 L (9.4-12.4) fL Immature Gran % (Auto) 0.6 % Neut % (Auto) 48.9 % Lymph % (Auto) 42.3 % [place] % (Auto) 6.8 % Eos % (Auto) 0.6 % Baso % (Auto) 0.8 % Neut # (Auto) 2.54 (1.40-6.50) K/uL Lymph # (Auto) 2.19 (1.20-3.40) K/uL [place] # (Auto) 0.35 (0.11-0.59) K/uL Eos # (Auto) 0.03 (0.00-0.50) K/uL Baso # (Auto) 0.04 (0.00-0.20) K/uL Immature Gran # (Auto) 0.03 (0.01-0.20) K/uL PT 10.5 (9.0-12.0) Seconds INR 1.0 (0.9-1.1) Sodium 144 (136-145) mmol/L Potassium 3.9 (3.5-5.1) mmol/L Chloride 100 (98-107) mmol/L Carbon Dioxide 27 (21-32) mmol/L Anion Gap 17 H (3-11) BUN 6 (6-23) mg/dl Creatinine 0.90 (0.6-1.4) mg/dl Est Cr Clr Drug Dosing 147.7 ml/min eGFR 117.83 BUN/Creatinine Ratio 6.7 L (10-20) Glucose 113 H (70-99(Fasting)) mg/dl Calcium 8.9 (8.6-10.3) mg/dl Magnesium 2.4 (1.7-2.4) mg/dl Total Bilirubin 0.5 (0.2-1.0) mg/dl AST 86 H (13-39) U/L ALT 78 H (7-52) U/L Alkaline Phosphatase 64 (34-104) U/L Troponin I High Sens 3.9 (0-20) pg/ml Total Protein 7.7 (6.0-8.3) gm/dl Albumin 5.0 (3.4-5.0) gm/dl Globulin 2.7 (2.5-4.0) gm/dl Albumin/Globulin Ratio 1.9 (0.9-2) Lipase 36 (11-82) U/L Ethyl Alcohol mg/dL 431.4 H (<10.0) mg/dl Administered Medications Lorazepam (Lorazepam 2 Mg/1 Ml Vial) 1 mg IV UD PRN; Protocol PRN Reason: EtOH Withdrawal AWSS Score 6,7 Stop: 11/20/24 16:32 Last Admin: 10/21/24 17:15 Dose: 1 mg Documented By: STEPHENIE Discontinued Medications Ondansetron HCl (Ondansetron Inj 2 Mg/Ml 2 Ml Vial) 4 mg IV NOW STA Stop: 10/21/24 17:12 Last Admin: 10/21/24 17:16 Dose: 4 mg Documented By: STEPHENIE Imaging Data Radiologist's Impression: Chest X-Ray 10/21/24 16:33 EXAM: X-ray chest one-view portable CLINICAL HISTORY: Chest pain PRIORS: 05/21/2021 TECHNIQUE: Single frontal view chest FINDINGS: The chest is well-expanded. No airspace consolidation, effusion or congestive changes. Heart size is normal. No pneumothorax. Trachea is patent. Osseous structures demonstrate no acute abnormality. No radiopaque foreign body. IMPRESSION: No plain film evidence of an acute cardiopulmonary process. Electronically signed by Tanvi Horton 10-21-2024 5:28 PM Discharge Plan Visit Data Chief Complaint: Alcohol Intoxication Stated Complaint: INTOXICATION ED Provider: Yuliana Hagen Discharge Problem: Alcohol use disorder, Alcohol withdrawal, Alcohol intoxication, Transaminitis Forms Stand Alone Forms: [facility] [place] Prescriptions Prescriptions: No Action famotidine [Zantac-360 (famotidine)] 20 mg Tablet 20 mg PO QAM multivitamin Tablet 1 tab PO DAILY Qty: 30 0RF alprazolam 0.25 mg tablet 0.25 mg PO BID PRN (Reason: Anxiety) Referrals Referrals: PCP,NO [Primary Care Provider] -
[2024-10-21] MEDS: FOLIC ACID 1 MG in SYRINGE 9.8 ML IV SCH (20:05)
[2024-10-21] MEDS: THIAMINE HCL 100 MG in SYRINGE 9 ML IV SCH (20:08)
[2024-10-21] MEDS: LORazepam 2 MG/1 ML VIAL IV STA (20:36)
[2024-10-21] MEDS ORDERED: MULTI VITAMIN INFUSION IV SCH (21:30)
[2024-10-21] MEDS ORDERED: SODIUM CHLORIDE IV SCH (21:30)
[2024-10-21] MEDS: MULTIVITAMIN TAB PO SCH (21:31)
--- NOTE | 2024-10-21 21:45 | History & Physical Report ---
Date of Service October 21, 2024 Assessment & Plan (1) Alcohol withdrawal: Plan: 29-year-old male with past medical history significant for alcohol abuse and alcohol withdrawal seizures, history of thrombocytopenia, history of elevated LFTs, anxiety comes because of alcoholism and alcohol withdrawal. Per ER patient seems to have recently gone through a break-up and has been on potter for last 1 week. Patient says for last 1 week he is drinking 10% alcohol beer 12 a day or 1.5 L of vodka. He wanted to be detoxed. Having nausea and vomiting. Denies any blood in the vomiting. Has abdominal discomfort. Somewhat shaky. Says feeling anxious and wanted to help with his anxiety.Says did not sleep for last several days. Feeling somewhat dizzy. Has headache. Vision is okay. No runny nose or sore throat. No cough. Did not eat for last 6 days. Denies any chest pain. Has chronic shortness of breath. Did not moved his bowels for last several days because of not eating. Micturating okay. No rash. Hemodynamics are okay. Alcohol withdrawal Alcohol intoxication. Alcohol level 431 Somewhat shaky History of alcohol withdrawal seizures Will place on alcohol withdrawal protocol with Librium and IV Ativan as needed IV thiamine and folic acid Close monitor Mild transaminitis Follow repeat labs DVT prophylaxis Lovenox Disposition Telemetry Full code. History of Present Illness Chief Complaint: Alcohol withdrawal Primary Care Provider: [facility]AD[facility] PCP 29-year-old male with past medical history significant for alcohol abuse and alcohol withdrawal seizures, history of thrombocytopenia, history of elevated LFTs, anxiety comes because of alcoholism and alcohol withdrawal. Per ER patient seems to have recently gone through a break-up and has been on potter for last 1 week. Patient says for last 1 week he is drinking 10% alcohol beer 12 a day or 1.5 L of vodka. He wanted to be detoxed. Having nausea and vomiting. Denies any blood in the vomiting. Has abdominal discomfort. Somewhat shaky. Says feeling anxious and wanted to help with his anxiety.Says did not sleep for last several days. Feeling somewhat dizzy. Has headache. Vision is okay. No runny nose or sore throat. No cough. Did not eat for last 6 days. Denies any chest pain. Has chronic shortness of breath. Did not moved his bowels for last several days because of not eating. Micturating okay. No rash. Hemodynamics are okay. Past medical history. As mentioned above Past surgical history. Colonoscopy. EGD. ERCP. Laparoscopic cholecystectomy. Reduction of testis torsion. Social history. No alcohol use. Heavy alcohol use. No drug use. Family history. Sister has kidney disease. Brother has tachycardia. Allergies Allergy/AdvReac Type Severity Reaction Status Date / Time blue dye AdvReac Intermediate Vomiting Verified 05/21/21 16:52 levetiracetam AdvReac Intermediate overly Verified 05/21/21 16:52 emotional red dye AdvReac Intermediate Vomiting Verified 05/21/21 16:52 Home Medications Medication Instructions Recorded Confirmed Type famotidine 20 mg tablet 20 mg PO QAM 05/21/21 10/21/24 History (Zantac-360 (famotidine)) multivitamin 1 tab PO DAILY #30 tabs 05/24/21 10/21/24 Rx alprazolam 0.25 mg tablet 0.25 mg PO BID PRN Anxiety 10/21/24 10/21/24 History Past Med/Surg History Problem List (Updated 10/22/24 @ 00:05 by Michael Bocanegra) Transaminitis (Acute) Alcohol intoxication (Acute) Alcohol withdrawal (Acute) Alcohol use disorder (Acute) Alcohol withdrawal Sinus tachycardia (Acute) Alcohol intoxication (Acute) Nausea vomiting and diarrhea Hypomagnesemia (Acute) Abnormal LFTs (Acute) Alcohol withdrawal seizure (Acute) Admitted to intensive care unit Loss of consciousness Abscess of tongue Abrasion of tongue Alcohol use (Acute) Seizure Alcohol withdrawal (Acute) Hypophosphatemia (Acute) Thrombocytopenia (Acute) Tongue abnormality DVT prophylaxis Hypophosphatemia Hypokalemia Vomiting (Acute) Thrombocytopenia Seizure Alcohol abuse (Chronic) S/P cholecystectomy (Chronic) Hx of unilateral orchiectomy (Chronic) Post traumatic stress disorder (Chronic) Family History Father Unknown family medical history Mother Unknown family medical history Denies family history of Diabetes Heart disease Social History Smoking Status: Current every day smoker Tobacco Type: E-cigarettes / Vaping Second Hand Exposure: No; Do You Dip or Chew Tobacco: No; Hx Alcohol Use: Yes Alcohol type: hard liquor Alcohol Intake Frequency Comment: History of heavy alcohol use; last drink 06/27 Hx Substance Use: No Preferred Language: Luxembourgish Communication Ability: Effective Visual Impairment: No Limitations Retail Client Manager Required: No Beliefs That Will Affect Care: None marital status: Single Current Living Situation: Alone 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 ENT- oropharynx clear Neck- supple, no JVD. Lungs- clear to auscultation no wheezing or crackles Heart- regular rhythm; Tachycardia no murmur, no gallop. Abdomen- normal bowel sounds, soft, mild diffuse discomfort , no distension Extremities- no pretibial edema, no erythema seen Neuro- alert, oriented PERRL, no facial palsy; no dysarthria; moves extremities Results & Data Results & Data Vital Signs (Past 12 Hours) Vital Signs Temp Pulse Pulse Resp BP BP Pulse Ox 10/21/24 20:48 107 H 10/21/24 18:21 102 H 16 96 10/21/24 18:15 37.1 C 99 H 22 130/83 96 10/21/24 18:12 106 H 15 98 10/21/24 18:00 130/83 10/21/24 17:57 103 H 19 98 10/21/24 17:54 104 H 16 95 10/21/24 17:30 121/87 10/21/24 17:12 113 H 17 92 10/21/24 17:00 138/95 10/21/24 17:00 116 H 21 97 10/21/24 16:52 118 H 96 10/21/24 16:50 96 10/21/24 16:48 126 H 10/21/24 16:45 114 H 19 91 10/21/24 16:27 36.4 C L 135 H 18 160/91 H 96 O2 Del Method 10/21/24 20:48 10/21/24 18:21 10/21/24 18:15 Room Air 10/21/24 18:12 10/21/24 18:00 10/21/24 17:57 10/21/24 17:54 10/21/24 17:30 10/21/24 17:12 10/21/24 17:00 10/21/24 17:00 10/21/24 16:52 Room Air 10/21/24 16:50 Room Air 10/21/24 16:48 10/21/24 16:45 10/21/24 16:27 Room Air Diagnostic Findings Laboratory Results WBC 5.18 K/ul (4.8-10.8) 10/21/24 16:45 RBC 5.22 M/uL (4.70-6.10) 10/21/24 16:45 Hgb 16.8 g/dl (14.0-18.0) 10/21/24 16:45 Hct 47.1 % (42.0-52.0) 10/21/24 16:45 MCV 90.2 fL (80.0-100.0) 10/21/24 16:45 MCH 32.2 pg (25.0-34.0) 10/21/24 16:45 MCHC 35.7 g/dL (32.0-36.0) 10/21/24 16:45 RDW Std Deviation 38.5 fL (36.4-46.3) 10/21/24 16:45 RDW Coeff of Phill 11.7 % (11.5-14.5) 10/21/24 16:45 Plt Count 293 K/uL (130-400) 10/21/24 16:45 MPV 9.0 fL (9.4-12.4) L 10/21/24 16:45 Immature Gran % (Auto) 0.6 % 10/21/24 16:45 Neut % (Auto) 48.9 % 10/21/24 16:45 Lymph % (Auto) 42.3 % 10/21/24 16:45 [place] % (Auto) 6.8 % 10/21/24 16:45 Eos % (Auto) 0.6 % 10/21/24 16:45 Baso % (Auto) 0.8 % 10/21/24 16:45 Neut # (Auto) 2.54 K/uL (1.40-6.50) 10/21/24 16:45 Lymph # (Auto) 2.19 K/uL (1.20-3.40) 10/21/24 16:45 [place] # (Auto) 0.35 K/uL (0.11-0.59) 10/21/24 16:45 Eos # (Auto) 0.03 K/uL (0.00-0.50) 10/21/24 16:45 Baso # (Auto) 0.04 K/uL (0.00-0.20) 10/21/24 16:45 Immature Gran # (Auto) 0.03 K/uL (0.01-0.20) 10/21/24 16:45 PT 10.5 Seconds (9.0-12.0) 10/21/24 16:45 INR 1.0 (0.9-1.1) 10/21/24 16:45 Sodium 144 mmol/L (136-145) 10/21/24 16:45 Potassium 3.9 mmol/L (3.5-5.1) 10/21/24 16:45 Chloride 100 mmol/L (98-107) 10/21/24 16:45 Carbon Dioxide 27 mmol/L (21-32) 10/21/24 16:45 Anion Gap 17 (3-11) H 10/21/24 16:45 BUN 6 mg/dl (6-23) 10/21/24 16:45 Creatinine 0.90 mg/dl (0.6-1.4) 10/21/24 16:45 Est Cr Clr Drug Dosing 147.7 ml/min 10/21/24 16:45 eGFR 117.83 10/21/24 16:45 BUN/Creatinine Ratio 6.7 (10-20) L 10/21/24 16:45 Glucose 113 mg/dl (70-99(Fasting)) H 10/21/24 16:45 Calcium 8.9 mg/dl (8.6-10.3) 10/21/24 16:45 Magnesium 2.4 mg/dl (1.7-2.4) 10/21/24 16:45 Total Bilirubin 0.5 mg/dl (0.2-1.0) 10/21/24 16:45 AST 86 U/L (13-39) H 10/21/24 16:45 ALT 78 U/L (7-52) H 10/21/24 16:45 Alkaline Phosphatase 64 U/L (34-104) 10/21/24 16:45 Troponin I High Sens 3.9 pg/ml (0-20) 10/21/24 16:45 Total Protein 7.7 gm/dl (6.0-8.3) 10/21/24 16:45 Albumin 5.0 gm/dl (3.4-5.0) 10/21/24 16:45 Globulin 2.7 gm/dl (2.5-4.0) 10/21/24 16:45 Albumin/Globulin Ratio 1.9 (0.9-2) 10/21/24 16:45 Lipase 36 U/L (11-82) 10/21/24 16:45 Ethyl Alcohol mg/dL 431.4 mg/dl (<10.0) H 10/21/24 16:45 Impressions Chest X-Ray 10/21/24 16:33 EXAM: X-ray chest one-view portable CLINICAL HISTORY: Chest pain PRIORS: 05/21/2021 TECHNIQUE: Single frontal view chest FINDINGS: The chest is well-expanded. No airspace consolidation, effusion or congestive changes. Heart size is normal. No pneumothorax. Trachea is patent. Osseous structures demonstrate no acute abnormality. No radiopaque foreign body. IMPRESSION: No plain film evidence of an acute cardiopulmonary process. Electronically signed by Tanvi Horton 10-21-2024 5:28 PM ECG Additional Comments: ECG. Sinus tachycardia rate 115. Left axis deviation. QTc 462 Code Status & VTE Plan VTE Prophylaxis Plan VTE Prophylaxis will be ordered: Yes
[2024-10-21] MEDS: SODIUM CHLORIDE 0.9% 1,000 ML IV SCH (22:45)
[2024-10-21] MEDS: diazePAM 5 MG/ML 10ML VIAL IV STA (22:51)
[2024-10-21] MEDS ORDERED: ALPRAZolam 0.25 MG TABLET PO PRN (22:56)
[2024-10-21] MEDS ORDERED: NITROGLYCERIN SL 0.4 MG/TAB TAB SL PRN (22:56)
[2024-10-21] MEDS ORDERED: chlordiazePOXIDE ALCOHOL WITHDRAWL 50MG PO STA (22:56)
[2024-10-21] MEDS: chlordiazePOXIDE HCl 25 MG CAP PO SCH (23:48)
[2024-10-21] MEDS: ENOXAPARIN INJ 40 MG/0.4 ML SYR SQ SCH (23:57)
[2024-10-22 00:08] LABS: Appearance Urine Clear (Clear); Bacteria Urine Automated None Seen (None Seen); Bilirubin Urine Negative (Negative); Blood Urine Negative (Negative); Cast Urine Automated 0-2 /lpf (0-2); Color Urine Yellow; Epithelial Cell Urine Auto 0-2 /hpf (0-2); Glucose Urine UA Negative (Negative); Ketones Urine 2+ (Negative); Leukocyte Esterase Urine Negative (Negative); Nitrite Urine Negative (Negative); Protein Urine 1+ (Negative); RBC Urine Automated 0-2 /hpf (0-2); Specific Gravity Urine 1.012 (1.000-1.030); Urobilinogen Urine Negative (Negative); WBC Urine Automated 0-5 /hpf (0-5); pH Urine 6.5 (4.5-7.5)
[2024-10-22 00:21] LABS: Amphetamines+Metham, Urine Neg (Neg); Barbiturates, Urine Neg (Neg); Benzodiazepine, Urine Neg (Neg); Cocaine, Urine Neg (Neg); Fentanyl, Urine Neg (Neg); MDMA (Ecstacy), Urine Neg (Neg); Marijuana, Urine Neg (Neg); Methadone, Urine Neg (Neg); Opiate, Urine Neg (Neg); Phencyclidine, Urine Neg (Neg)
[2024-10-22 06:18] LABS: Basophils # (auto) 0.03 K/uL (0.00-0.20); Basophils % (auto) 0.7 %; Eosinophils # (auto) 0.04 K/uL (0.00-0.50); Eosinophils % (auto) 0.9 %; Hemoglobin 14.1 g/dl (14.0-18.0); Immature Granulocytes # (auto) 0.01 K/uL (0.01-0.20); Immature Granulocytes % (auto) 0.2 %; Lymphocytes # (auto) 0.99 K/uL (1.20-3.40); Lymphocytes % (auto) 22.2 %; Mean Corpuscular Hemoglobin 31.3 pg (25.0-34.0); Mean Corpuscular Hgb Conc 34.4 g/dL (32.0-36.0); Mean Corpuscular Volume 91.1 fL (80.0-100.0); Monocytes # (auto) 0.42 K/uL (0.11-0.59); Monocytes % (auto) 9.4 %; Neutrophils # (auto) 2.96 K/uL (1.40-6.50); Neutrophils % (auto) 66.6 %; Platelet Count 184 K/uL (130-400); RDW Coefficient of Variation 11.7 % (11.5-14.5); RDW Standard Deviation 39.5 fL (36.4-46.3); White Blood Count 4.45 K/ul (4.8-10.8)
[2024-10-22 06:36] LABS: Albumin Level 4.1 gm/dl (3.4-5.0); BUN Creatinine Ratio 9.5 (10-20); Bilirubin Direct 0.2 mg/dl (0-0.2); Bilirubin,Total 0.8 mg/dl (0.2-1.0); Calcium 8.1 mg/dl (8.6-10.3); Creatinine Clr Calc Pharmacy 180.5 ml/min; Magnesium 1.9 mg/dl (1.7-2.4); Potassium 3.7 mmol/L (3.5-5.1); Total Protein 6.3 gm/dl (6.0-8.3)
[2024-10-22 07:00] LABS: Folate (Folic Acid),Ser orPlas > 22.30 ng/ml (>5.38)
[2024-10-22 07:01] LABS: Vitamin B12 356 pg/ml (180-914)
[2024-10-22 07:46] VITALS: RESP 19
[2024-10-22] MEDS ORDERED: DOCUSATE SODIUM 100 MG CAP PO PRN (07:56)
[2024-10-22] MEDS ORDERED: POLYETHYLENE (MIRALAX) 17 GM PACK PO PRN (07:56)
[2024-10-22] MEDS: LORazepam 2 MG/1 ML VIAL IV PRN (08:08)
[2024-10-22] MEDS: FAMOTIDINE 20 MG TAB PO SCH (08:09)
[2024-10-22] MEDS: MULTIVITAMIN TAB PO SCH (08:09)
[2024-10-22] MEDS: PROMETHAZINE 12.5 MG/50.5 ML BAG IV STA (08:10)
[2024-10-22] MEDS: FOLIC ACID 1 MG in SYRINGE 9.8 ML IV SCH (08:15)
[2024-10-22] MEDS: THIAMINE HCL 100 MG in SYRINGE 9 ML IV SCH (08:15)
[2024-10-22] MEDS ORDERED: NON-FORMULARY MEDICATION (Multivitamin tablet) PO SCH (09:00)
[2024-10-22] MEDS ORDERED: ALUMINUM/MAGNESIUM/SIMETH (MAALOX MAX) 30 ML UDC PO PRN (09:58)
[2024-10-22] MEDS: chlordiazePOXIDE HCl 25 MG CAP PO SCH (11:05)
[2024-10-22] MEDS: NICOTINE 14 MG/24 HR PATCH TD SCH (11:05)
[2024-10-22 11:34] VITALS: BP 113/74; PULSE 97; TEMP 98.2; O2SAT 95
[2024-10-22] MEDS: LORazepam 1 MG TAB PO STA (11:59)
--- NOTE | 2024-10-22 12:44 | Hospitalist Progress Note ---
Date of Service October 22, 2024 Assessment & Plan (1) Alcohol withdrawal: Plan: 29-year-old male with past medical history significant for alcohol abuse and alcohol withdrawal seizures, history of thrombocytopenia, history of elevated LFTs, anxiety comes because of alcoholism and alcohol withdrawal. Per ER patient seems to have recently gone through a break-up and has been on potter for last 1 week. Patient says for last 1 week he is drinking 10% alcohol beer 12 a day or 1.5 L of vodka. He wanted to be detoxed. Having nausea and vomiting. Denies any blood in the vomiting. Has abdominal discomfort. Somewhat shaky. Says feeling anxious and wanted to help with his anxiety.Says did not sleep for last several days. Feeling somewhat dizzy. Has headache. Vision is okay. No runny nose or sore throat. No cough. Did not eat for last 6 days. Denies any chest pain. Has chronic shortness of breath. Did not moved his bowels for last several days because of not eating. Micturating okay. No rash. Hemodynamics are okay. Alcohol withdrawal Alcohol intoxication Alcohol level 431 Toxicology screen negative H/O alcohol withdrawal seizures Continue alcohol withdrawal protocol with Librium, thiamine, folic acid IV Ativan as needed Refused psychiatry evaluation Currently not interested in drug rehab placement Patient prefers to be discharged home today Despite explaining the risks and complications of incomplete treatment for alcohol withdrawal, patient plans to leave AGAINST MEDICAL ADVICE Patient understands the risks but plans to leave AMA Advised to follow-up with primary care physician Mild transaminitis Monitor DVT prophylaxis Lovenox SQ Code Status Full code Admission and Anticipated Discharge Date Admission Date: October 21, 2024 Subjective Patient is seen and examined at bedside States feeling anxious, has tremors and reports heartburn associated with nausea today Denies any chest pain, dyspnea, abdominal pain, dizziness No other complaints Review of Systems Review of Systems: All systems reviewed & are unremarkable except as noted in Subjective Physical Exam Physical Exam: Physical Exam: Vitals signs as noted above General Appearance:Moderately built and nourished, no apparent distress Head: normocephalic, Atraumatic Eyes: normal inspection, EOMI Neck: supple, Trachea midline Respiratory/Chest: Normal breath sounds, CTA, No accessory muscle use Cardiovascular: S1, S2, No murmur, tachycardia Abdomen/GI:Soft, Non tender, Bowel sounds present Extremities/Musculoskeletal:normal inspection, no edema Neurologic/Psych:AAOX3, grossly no focal neurological deficits, tremor Skin: normal color, warm Results & Data Results & Data Vital Signs (Past 12 Hours) Vital Signs Temp Pulse Resp BP Pulse Ox O2 Del Method 10/22/24 11:33 36.8 C 97 H 19 113/74 95 Room Air 10/22/24 07:45 36.5 C 96 H 19 126/85 93 Room Air 10/22/24 03:46 36.8 C 83 22 114/74 98 Room Air Laboratory Results Short CBC 10/21/24 10/22/24 Range/Units 16:45 05:59 WBC 5.18 4.45 L (4.8-10.8) K/ul Hgb 16.8 14.1 (14.0-18.0) g/dl Hct 47.1 41.0 L (42.0-52.0) % Plt Count 293 184 (130-400) K/uL BMP 10/21/24 10/22/24 16:45 05:59 Sodium 144 139 Potassium 3.9 3.7 Chloride 100 100 Carbon Dioxide 27 27 BUN 6 7 Creatinine 0.90 0.74 Glucose 113 H 78 Calcium 8.9 8.1 L Liver Function 10/21/24 10/22/24 Range/Units 16:45 05:59 Total Bilirubin 0.5 0.8 (0.2-1.0) mg/dl Direct Bilirubin 0.2 (0-0.2) mg/dl AST 86 H 68 H (13-39) U/L ALT 78 H 63 H (7-52) U/L Alkaline Phosphatase 64 50 (34-104) U/L Albumin 5.0 4.1 (3.4-5.0) gm/dl Urine 10/21/24 Range/Units 23:40 Urine Color Yellow Urine Appearance Clear (Clear) Urine pH 6.5 (4.5-7.5) Ur Specific [place] 1.012 (1.000-1.030) Urine Protein 1+ H (Negative) Urine Glucose (UA) Negative (Negative)
--- NOTE | 2024-10-22 13:00 | Electrocardiogram Report ---
Test Reason : Blood Pressure : */* mmHG Vent. Rate : 115 BPM Atrial Rate : 115 BPM P-R Int : 134 ms QRS Dur : 98 ms QT Int : 334 ms P-R-T Axes : 58 -34 40 degrees QTcB Int : 462 ms Sinus tachycardia Left axis deviation Abnormal ECG When compared with ECG of 21-May-2021 16:46, No significant change was found Confirmed by Mitesh Angel ([id number]) on 10/22/2024 1:00:01 PM Referred By: REFERRED SELF Confirmed By: Mitesh Angel
--- NOTE | 2024-10-22 13:59 | Discharge Summary ---
Date of Service October 22, 2024 Admission HPI Per Admitting Provider 29-year-old male with past medical history significant for alcohol abuse and alcohol withdrawal seizures, history of thrombocytopenia, history of elevated LFTs, anxiety comes because of alcoholism and alcohol withdrawal. Per ER patient seems to have recently gone through a break-up and has been on potter for last 1 week. Patient says for last 1 week he is drinking 10% alcohol beer 12 a day or 1.5 L of vodka. He wanted to be detoxed. Having nausea and vomiting. Denies any blood in the vomiting. Has abdominal discomfort. Somewhat shaky. Says feeling anxious and wanted to help with his anxiety.Says did not sleep for last several days. Feeling somewhat dizzy. Has headache. Vision is okay. No runny nose or sore throat. No cough. Did not eat for last 6 days. Denies any chest pain. Has chronic shortness of breath. Did not moved his bowels for last several days because of not eating. Micturating okay. No rash. Hemodynamics are okay. Past medical history. As mentioned above Past surgical history. Colonoscopy. EGD. ERCP. Laparoscopic cholecystectomy. Reduction of testis torsion. Social history. No alcohol use. Heavy alcohol use. No drug use. Family history. Sister has kidney disease. Brother has tachycardia. Admission Exam Per Admitting Provider General- Not in distress Head- atraumatic Eyes- PERRL. ENT- oropharynx clear Neck- supple, no JVD. Lungs- clear to auscultation no wheezing or crackles Heart- regular rhythm; Tachycardia no murmur, no gallop. Abdomen- normal bowel sounds, soft, mild diffuse discomfort , no distension Extremities- no pretibial edema, no erythema seen Neuro- alert, oriented PERRL, no facial palsy; no dysarthria; moves extremities Principal Diagnosis Alcohol withdrawal Alcohol intoxication Discharge Data Allergies Allergy/AdvReac Type Severity Reaction Status Date / Time blue dye AdvReac Intermediate Vomiting Verified 05/21/21 16:52 levetiracetam AdvReac Intermediate overly Verified 05/21/21 16:52 emotional red dye AdvReac Intermediate Vomiting Verified 05/21/21 16:52 Consultations 10/21/24 19:23 ED Decision to Admit Stat Procedures Performed Laboratory Results WBC 4.45 K/ul (4.8-10.8) L 10/22/24 05:59 RBC 4.50 M/uL (4.70-6.10) L 10/22/24 05:59 Hgb 14.1 g/dl (14.0-18.0) 10/22/24 05:59 Hct 41.0 % (42.0-52.0) L 10/22/24 05:59 MCV 91.1 fL (80.0-100.0) 10/22/24 05:59 MCH 31.3 pg (25.0-34.0) 10/22/24 05:59 MCHC 34.4 g/dL (32.0-36.0) 10/22/24 05:59 RDW Std Deviation 39.5 fL (36.4-46.3) 10/22/24 05:59 RDW Coeff of Phill 11.7 % (11.5-14.5) 10/22/24 05:59 Plt Count 184 K/uL (130-400) 10/22/24 05:59 MPV 9.0 fL (9.4-12.4) L 10/22/24 05:59 Immature Gran % (Auto) 0.2 % 10/22/24 05:59 Neut % (Auto) 66.6 % 10/22/24 05:59 Lymph % (Auto) 22.2 % 10/22/24 05:59 [place] % (Auto) 9.4 % 10/22/24 05:59 Eos % (Auto) 0.9 % 10/22/24 05:59 Baso % (Auto) 0.7 % 10/22/24 05:59 Neut # (Auto) 2.96 K/uL (1.40-6.50) 10/22/24 05:59 Lymph # (Auto) 0.99 K/uL (1.20-3.40) L 10/22/24 05:59 [place] # (Auto) 0.42 K/uL (0.11-0.59) 10/22/24 05:59 Eos # (Auto) 0.04 K/uL (0.00-0.50) 10/22/24 05:59 Baso # (Auto) 0.03 K/uL (0.00-0.20) 10/22/24 05:59 Immature Gran # (Auto) 0.01 K/uL (0.01-0.20) 10/22/24 05:59 PT 10.5 Seconds (9.0-12.0) 10/21/24 16:45 INR 1.0 (0.9-1.1) 10/21/24 16:45 Sodium 139 mmol/L (136-145) 10/22/24 05:59 Potassium 3.7 mmol/L (3.5-5.1) 10/22/24 05:59 Chloride 100 mmol/L (98-107) 10/22/24 05:59 Carbon Dioxide 27 mmol/L (21-32) 10/22/24 05:59 Anion Gap 12 (3-11) H 10/22/24 05:59 BUN 7 mg/dl (6-23) 10/22/24 05:59 Creatinine 0.74 mg/dl (0.6-1.4) 10/22/24 05:59 Est Cr Clr Drug Dosing 180.5 ml/min 10/22/24 05:59 eGFR 125.01 10/22/24 05:59 BUN/Creatinine Ratio 9.5 (10-20) L 10/22/24 05:59 Glucose 78 mg/dl (70-99(Fasting)) 10/22/24 05:59 Calcium 8.1 mg/dl (8.6-10.3) L 10/22/24 05:59 Magnesium 1.9 mg/dl (1.7-2.4) 10/22/24 05:59 Total Bilirubin 0.8 mg/dl (0.2-1.0) 10/22/24 05:59 Direct Bilirubin 0.2 mg/dl (0-0.2) 10/22/24 05:59 AST 68 U/L (13-39) H 10/22/24 05:59 ALT 63 U/L (7-52) H 10/22/24 05:59 Alkaline Phosphatase 50 U/L (34-104) 10/22/24 05:59 Troponin I High Sens 3.9 pg/ml (0-20) 10/21/24 16:45 Total Protein 6.3 gm/dl (6.0-8.3) 10/22/24 05:59 Albumin 4.1 gm/dl (3.4-5.0) 10/22/24 05:59 Globulin 2.7 gm/dl (2.5-4.0) 10/21/24 16:45 Albumin/Globulin Ratio 1.9 (0.9-2) 10/21/24 16:45 Lipase 36 U/L (11-82) 10/21/24 16:45 Vitamin B12 356 pg/ml (180-914) 10/22/24 05:59 Folate > 22.30 ng/ml (>5.38) 10/22/24 05:59 Urine Color Yellow 10/21/24 23:40 Urine Appearance Clear (Clear) 10/21/24 23:40 Urine pH 6.5 (4.5-7.5) 10/21/24 23:40 Ur Specific [place] 1.012 (1.000-1.030) 10/21/24 23:40 Urine Protein 1+ (Negative) H 10/21/24 23:40 Urine Glucose (UA) Negative (Negative) 10/21/24 23:40 Urine Ketones 2+ (Negative) H 10/21/24 23:40 Urine Blood Negative (Negative) 10/21/24 23:40 Urine Nitrite Negative (Negative) 10/21/24 23:40 Urine Bilirubin Negative (Negative) 10/21/24 23:40 Urine Urobilinogen Negative (Negative) 10/21/24 23:40 Ur Leukocyte Esterase Negative (Negative) 10/21/24 23:40 Urine WBC (Auto) 0-5 /hpf (0-5) 10/21/24 23:40 Urine RBC (Auto) 0-2 /hpf (0-2) 10/21/24 23:40 U Hyaline Cast (Auto) 0-2 /lpf (0-2) 10/21/24 23:40 U Epithel Cells (Auto) 0-2 /hpf (0-2) 10/21/24 23:40 Urine Bacteria (Auto) None Seen (None Seen) 10/21/24 23:40 Urine Opiates Screen Neg (Neg) 10/21/24 23:40 Ur Methadone, Qual Neg (Neg) 10/21/24 23:40 Urine Fentanyl Screen Neg (Neg) 10/21/24 23:40 Urine Barbiturates Neg (Neg) 10/21/24 23:40 Ur Phencyclidine (PCP) Neg (Neg) 10/21/24 23:40 U Amphetamin/Meth Scrn Neg (Neg) 10/21/24 23:40 MDMA (Ecstasy) Screen Neg (Neg) 10/21/24 23:40 U Benzodiazepines Scrn Neg (Neg) 10/21/24 23:40 Ur Cocaine Metabolite Neg (Neg) 10/21/24 23:40 U Marijuana (THC) Screen Neg (Neg) 10/21/24 23:40 Ethyl Alcohol mg/dL 431.4 mg/dl (<10.0) H 10/21/24 16:45 Impressions Chest X-Ray 10/21/24 16:33 EXAM: X-ray chest one-view portable CLINICAL HISTORY: Chest pain PRIORS: 05/21/2021 TECHNIQUE: Single frontal view chest FINDINGS: The chest is well-expanded. No airspace consolidation, effusion or congestive changes. Heart size is normal. No pneumothorax. Trachea is patent. Osseous structures demonstrate no acute abnormality. No radiopaque foreign body. IMPRESSION: No plain film evidence of an acute cardiopulmonary process. Electronically signed by Tanvi Horton 10-21-2024 5:28 PM Hospital Course (1) Alcohol withdrawal: 29-year-old male with past medical history significant for alcohol abuse and alcohol withdrawal seizures, history of thrombocytopenia, history of elevated LFTs, anxiety comes because of alcoholism and alcohol withdrawal. Per ER patient seems to have recently gone through a break-up and has been on potter for last 1 week. Patient says for last 1 week he is drinking 10% alcohol beer 12 a day or 1.5 L of vodka. He wanted to be detoxed. Having nausea and vomiting. Denies any blood in the vomiting. Has abdominal discomfort. Somewhat shaky. Says feeling anxious and wanted to help with his anxiety.Says did not sleep for last several days. Feeling somewhat dizzy. Has headache. Vision is okay. No runny nose or sore throat. No cough. Did not eat for last 6 days. Denies any chest pain. Has chronic shortness of breath. Did not moved his bowels for last several days because of not eating. Micturating okay. No rash. Hemodynamics are okay. Alcohol withdrawal Alcohol intoxication Alcohol level 431 Toxicology screen negative H/O alcohol withdrawal seizures Continue alcohol withdrawal protocol with Librium, thiamine, folic acid IV Ativan as needed Refused psychiatry evaluation Currently not interested in drug rehab placement Patient prefers to be discharged home today Despite explaining the risks and complications of incomplete treatment for alcohol withdrawal, patient plans to leave AGAINST MEDICAL ADVICE Patient understands the risks but plans to leave AMA Advised to follow-up with primary care physician Mild transaminitis Monitor DVT prophylaxis Lovenox SQ Code Status Full code Disposition AMA Total Time Total Time Spent Total Time Spent (In Minutes): 52 minutes Discharge Plan Discharge Items Patient Disposition: Against Medical Advice Reason For Visit: ALCOHOL WITHDRAWAL Activity: Per Instructions section Exercise/Sports: Wait until after follow-up appointment Non-emergency contact: Primary Care Provider Follow-up/Referrals: PCP,NO [Primary Care Provider] - Pending Studies at Discharge: No Stand-Alone Forms: [employer] Smoking Cessation Medications and DC Order Prescriptions: New thiamine HCl (vitamin B1) 100 mg tablet 100 mg PO DAILY Qty: 30 1RF Continued famotidine [Zantac-360 (famotidine)] 20 mg Tablet 20 mg PO QAM multivitamin Tablet 1 tab PO DAILY Qty: 30 0RF alprazolam 0.25 mg tablet 0.25 mg PO BID PRN (Reason: Anxiety) Discharge Orders: Left Against Medical Advice (Routine); Ordered 10/22/24 Ordered By: Delvin Medina Admission Data Admit Date/Time: 10/21/24 21:22 Attending Provider: Delvin Medina Admit Provider: Rudy Ricci Primary Care Provider: PCP,NO Other Providers: Rudy Ricci
[2024-10-22] MEDS ORDERED: FAMOTIDINE 20 MG TAB PO SCH (21:00)
[2024-10-24] MEDS ORDERED: chlordiazePOXIDE HCl 25 MG CAP PO SCH
== END 2024-10-22 15:22 | disposition left against medical advice (07) | DRG 894 ==
LOC: ED 16:15 → 2E 21:22